=== PATIENT | male | born 1960 | race Caucasian/White ===

== ENCOUNTER 2022-05-30 11:38 | Outpatient (CLI) | payer OTHER, SELFPAY ==
[2022-05-30 10:47] LABS: Albumin* 3.2 g/dL (3.3-5.0)
[2022-05-30 10:48] LABS: Chloride* 103 mmol/L (96-114); Sodium* 135 mmol/L (135-149)
[2022-05-30 10:50] LABS: Alkaline Phosphatase* 81 U/L (40-150); Aspartate Amino Transferase* 25 U/L (12-35); Bilirubin Total* 1.2 mg/dL (0.1-1.5); Carbon Dioxide* 27 mmol/L (20-32); Cholesterol* 132 mg/dL (90-199); Creatinine* 0.9 mg/dL (0.5-1.5); Estimated Glomerular Filt Rate 97 ml/min; Total Protein* 6.1 g/dL (6.0-8.3)
[2022-05-30 10:51] LABS: Alanine Aminotransferase* 18 U/L (4-50); Blood Urea Nitrogen* 9 mg/dL (7-30); Calcium* 8.6 mg/dL (8.4-10.6); Glucose* 109 mg/dL (60-115); HDL Cholesterol* 45 mg/dL (>=40); LDL Cholesterol Calculated 70 mg/dL (<100); Triglycerides* 84 mg/dL (40-149)
[2022-05-30 11:20] LABS: PSA Screen* 0.97 ng/mL (0.10-4.00)
== END 2022-05-30 11:39 | disposition home or self-care (01) ==
PROVIDERS: PCP Internal Medicine; Visit Provider Internal Medicine
DX: Z00.00 Encounter for general adult medical examination without abnormal findings (principal); I10 Essential (primary) hypertension; E66.9 Obesity, unspecified; I48.91 Unspecified atrial fibrillation; Z12.5 Encounter for screening for malignant neoplasm of prostate; Z13.6 Encounter for screening for cardiovascular disorders
CPT/HCPCS: 80053; 80061; 84153

== ENCOUNTER 2022-07-10 16:24 | Outpatient (CLI) | payer OTHER, SELFPAY ==
[2022-07-10 18:08] LABS: Chloride* 94 mmol/L (96-114); Sodium* 132 mmol/L (135-149)
[2022-07-10 18:11] LABS: Carbon Dioxide* 28 mmol/L (20-32); Creatinine* 1.2 mg/dL (0.5-1.5); Estimated Glomerular Filt Rate 68 ml/min
[2022-07-10 18:12] LABS: Blood Urea Nitrogen* 25 mg/dL (7-30); Calcium* 9.2 mg/dL (8.4-10.6); Glucose* 104 mg/dL (60-115)
== END 2022-07-10 16:25 | disposition home or self-care (01) ==
LOC: NFLDREF 16:25
PROVIDERS: PCP Internal Medicine; Visit Provider Internal Medicine
DX: I48.91 Unspecified atrial fibrillation (principal)
CPT/HCPCS: 80048

== ENCOUNTER 2022-10-24 01:10 | Observation (INO) | payer OTHER, SELFPAY ==
[2022-10-24] VITALS (15 sets, daily range): BP systolic 134–181; BP diastolic 69–89; PULSE 48–56; RESP 18–42; TEMP 36.4–37.2; O2SAT 84–97; BMI 42.9; BMI 44.1
--- NOTE | 2022-10-24 01:30 | CRLHL7_ITS ---
For Patients: As a result of the Cures Act, medical imaging exams and procedure reports are released immediately into your electronic medical record. You may view this report before your referring provider. If you have questions, please contact your health care provider. INDICATION: Dyspnea, hypoxia. TECHNIQUE: Chest 1 views. COMPARISON: 04/17/2022. FINDINGS: Cardiovascular and mediastinum: Heart size and vasculature are normal in caliber and appearance for portable technique. Lungs and pleural spaces: Low lung volumes with bronchovascular crowding. No focal consolidation. No pleural effusion or pneumothorax. Bones and soft tissues: No significant findings. IMPRESSION: Low lung volumes with bronchovascular crowding. No focal consolidation. Dictated by Johan Foreman MD @ 10/24/2022 1:45:52 AM (Electronically Signed)
--- NOTE | 2022-10-24 01:33 | ED.SOB ---
HPI - SOB/Dyspnea General Chief Complaint: Shortness of Breath/Dyspnea Stated Complaint: ablation Time Seen by Provider: 10/24/22 01:23 History of Present Illness HPI Narrative: 62-year-old man presenting to the emergency department with increasing shortness of breath. Will twinge of chest discomfort as well. Discharged about 14 hours ago after cardiac ablation the day before. This was done for atrial fibrillation. no fevers. No describe any cough. Just can not lay back for the shortness of breath. I see him seated rather upright in a chair. Does have a history of hypertrophic obstructive cardiomyopathy and alcohol abuse, sleep apnea and does use CPAP. He says he has not had a drink since April. Is unaware of findings associated with any recent echocardiogram. I inquire because heart rate is in the mid 50s, he says that he would consider his baseline now around 62. As far as medications go, post-ablation he was initiated on amiodarone and diltiazem was decreased in half from 360mg long-acting to 180 mg extended release daily. Related Data Home Medications Medication Instructions Recorded Confirmed amiodarone 200 mg tablet 200 mg PO BID 10/24/22 10/24/22 atorvastatin 80 mg tablet 80 mg PO HS 10/24/22 10/24/22 diltiazem HCl 180 mg 180 mg PO DAILY 10/24/22 10/24/22 capsule,extended release 24 hr furosemide 20 mg tablet 20 mg PO DAILY aTRIAL fIBRILLATION 10/24/22 10/24/22 gabapentin 300 mg capsule 300 mg PO HS Neuropathy 10/24/22 10/24/22 metoprolol succinate 25 mg 25 mg PO DAILY Atrial Fibrillation 10/24/22 10/24/22 tablet,extended release 24 hr pantoprazole 40 mg granules 40 mg PO DAILY 10/24/22 10/24/22 delayed-release for susp in packet (Protonix) Previous Rx's Medication Instructions Recorded spironolactone 25 mg tablet 50 mg PO DAILY Hypertension #90 06/11/22 tabs hydrochlorothiazide 25 mg tablet 25 mg PO DAILY aTRIAL fIBRILLATION 09/09/22 #90 tabs apixaban 5 mg tablet 5 mg PO BID Atrial Fibrillation 09/19/22 #60 tabs compress.stocking,knee,reg,med #2 ea 09/19/22 Allergies Allergy/AdvReac Type Severity Reaction Status Date / Time No Known Allergies Allergy Verified 10/24/22 02:19 Review of Systems Status of ROS: Reports: 6 or more systems reviewed and unremarkable except as noted in History and below [facility] Medical History (Updated 10/25/22 @ 06:03 by Tony Leigh MD) Atrial fibrillation Bradycardia Hypertension Neuropathy Peripheral vascular disease Surgical History (Updated 10/24/22 @ 11:50 by Ezequiel Perez MD) History of appendectomy History of total right hip replacement S/P ablation of atrial fibrillation Social History (Updated 10/24/22 @ 11:47 by Ezequiel Perez MD) Narrative: Patient is a former smoker having quit about 17 years ago with a 33 pack-year history. History of alcohol use disorder and reports not drinking since April of this year. Highest level of school completed/degree received: high school graduate Smoking Status: Former smoker Do you use any of these nicotine containing products: None Second hand tobacco smoke exposure: No How often do you have a drink containing alcohol: never AUDIT-C Alcohol total score: 0 Non-prescribed substance use: denies use Caffeine: Yes service: No Exam Narrative: Exam Narrative: Mr. Sims is seated upright in his chair. Seems mildly stressed. is speaking in partial sentences. He is on a non-rebreather. Arrived oxygenating in the mid 80s. He is mildly tachypneic and moderately labored in his breathing. Cranial nerves 2-12 look to be intact. Lungs with diminished to even absent breath sounds particularly through both lower lung squires. Extremities are with 1.5+ pitting edema in the lower legs. Abdomen is obese tense nontender. Cardiovascular with regular rate and rhythm. Rather distant. Oropharynx with rather shorter thick neck. Couple spots of erythema in the posterior oropharynx. Const: Vital Signs, click to edit/add: Vital Signs - 24 hr 10/24/22 01:24 10/24/22 01:30 10/24/22 01:30 Temperature 99 F Pulse Rate [Pulse Oximeter] 56 L Respiratory Rate 26 H Blood Pressure [Le ft Upper Arm] 181/75 H Pulse Oximetry 84 L 84 L 94 Oxygen Delivery Me thod Room Air OxyMask Oxygen Flow Rate 4 10/24/22 02:00 10/24/22 02:05 10/24/22 03:05 Temperature Pulse Rate [Pulse Oximeter] 52 L 50 L 49 L Respiratory Rate 42 H 17 84 H Blood Pressure [Le ft Upper Arm] 153/74 H 134/89 176/81 H Pulse Oximetry 91 93 96 Oxygen Delivery Me thod Nasal Cannula Nasal Cannula Nasal Cannula Oxygen Flow Rate Documenting provider has reviewed patient's vital signs: yes Course Vital Signs Vital signs: Initial Vital Signs Temperature 99 F 10/24/22 01:24 Temperature Source Temporal Artery Scan 10/24/22 01:24 Pulse Rate 56 L 10/24/22 01:24 Respiratory Rate 26 H 10/24/22 01:24 Blood Pressure 181/75 H 10/24/22 01:24 Blood Pressure Mean 110 10/24/22 01:24 Pulse Oximetry 84 L 10/24/22 01:24 Oxygen Delivery Method 10/24/22 01:24 Vital Signs Temperature 99 F 10/24/22 01:24 Pulse Rate 56 L 10/24/22 01:24 Respiratory Rate 26 H 10/24/22 01:24 Blood Pressure 181/75 H 10/24/22 01:24 Pulse Oximetry 84 L 10/24/22 01:24 Oxygen Delivery Method 10/24/22 01:24 Temperature 97.7 F 10/24/22 17:02 Pulse Rate 60 10/25/22 03:51 Respiratory Rate 20 10/24/22 23:00 Blood Pressure 152/73 H 10/24/22 17:02 Pulse Oximetry 97 10/25/22 01:30 Oxygen Delivery Method 10/24/22 23:00 Oxygen Flow Rate 2 10/24/22 23:00 MDM - SOB/Dyspnea MDM Narrative Medical decision making narrative: Supporting with oxygen supplementation at this point. Labs are pending. I would expect troponins to be elevated. Normal would be otherwise reassuring of course. Most concerning findings so far are the dyspnea and absent breath sounds. Pulmonary edema/ Effusion? Ordered for 1 dose of sublingual nitroglycerin and 40 mg of Lasix. Elevated BNP though only around 730. Would seem to have evidence of edema or cephalization on his chest x-ray by my read though Radiology suspects most finding secondary to inadequate inspiratory effort and subsequent crowding. Does look to have enlarged by my read cardiac silhouette. Little concerned of giving more nitroglycerin in the setting of hypertrophic obstructive cardiomyopathy. Oxygenation overall improved 91% on room air now as transition to nasal cannula. 97% on 2 L. Generally notes himself to be intolerant of mask and sounds like if necessary BiPAP would be a challenge. Did speak with Cardiology on-call through [employer]. They would concur that diagnosis a little unclear here. Admission, monitoring and repeat echo would be a good idea. Admitting to [facility] Medical Records Attestation: I reviewed the patient's medical records. Lab Data Attestation: I reviewed the patient's lab results. Labs: Lab Results 10/24/22 10/24/22 10/24/22 Range/Units 01:30 01:30 01:30 WBC 12.97 H (4.50-11.00) K/uL RBC 4.75 (4.30-5.90) m/uL Hgb 14.3 (13.5-17.5) gm/dL Hct 44.2 (37.0-53.0) % MCV 93 (80-100) fL MCH 30 (26-34) pg MCHC 32 (32-36) gm/dL RDW Coeff of Myles 15.6 H (11.5-15.5) % Plt Count 208 (140-440) K/uL Neut % (Auto) 74.4 H (42.0-72.0) % Lymph % (Auto) 17.3 L (20-44) % Reeves % (Auto) 7.9 (0.0-11.0) % Eos % (Auto) 0.2 (0.0-7.0) % Baso % (Auto) 0.1 (0.0-3.0) % Neut # (Auto) 9.60 H (1.7-7.0) K/uL Lymph # (Auto) 2.20 (0.90-2.90) K/uL Reeves # (Auto) 1.00 H (0.00-0.90) K/UL Eos # (Auto) 0.00 (0.00-0.50) K/uL Baso # (Auto) 0.00 (0.00-0.30) K/uL D-Dimer Quant (PE/DVT) 0.49 (0.00-0.50) ug/ml VBG pH (7.32-7.43) VBG pCO2 (40-50) mmHG VBG pO2 (25-47) mmHG VBG HCO3 (21-28) mmol/L Sodium 134 L (135-149) mmol/L Potassium 4.6 (3.6-5.1) mmol/L Chloride 102 (96-114) mmol/L Carbon Dioxide 23 (20-32) mmol/L BUN 24 (7-30) mg/dL Creatinine 1.1 (0.5-1.5) mg/dL Estimated GFR 75 ml/min Glucose 155 H (60-115) mg/dL Calcium 8.6 (8.4-10.6) mg/dL Magnesium (1.5-2.6) mg/dL Troponin I (0.01-0.04) ng/mL C-Reactive Protein < 0.5 L (0.5-1.0) mg/dL NT-Pro-B Natriuret Pep pg/mL SARS-CoV-2 (PCR) (Negative) Influenza Type A (PCR) (Negative) Influenza Type B (PCR) (Negative) RSV (PCR) (Negative) POC Troponin I (0.01-0.04) ng/ml 10/24/22 10/24/22 10/24/22 Range/Units 01:30 01:30 01:32 WBC (4.50-11.00) K/uL RBC (4.30-5.90) m/uL Hgb (13.5-17.5) gm/dL Hct (37.0-53.0) % MCV (80-100) fL MCH (26-34) pg MCHC (32-36) gm/dL RDW Coeff of Myles (11.5-15.5) % Plt Count (140-440) K/uL Neut % (Auto) (42.0-72.0) % Lymph % (Auto) (20-44) % Reeves % (Auto) (0.0-11.0) % Eos % (Auto) (0.0-7.0) % Baso % (Auto) (0.0-3.0) % Neut # (Auto) (1.7-7.0) K/uL Lymph # (Auto) (0.90-2.90) K/uL Reeves # (Auto) (0.00-0.90) K/UL Eos # (Auto) (0.00-0.50) K/uL Baso # (Auto) (0.00-0.30) K/uL D-Dimer Quant (PE/DVT) (0.00-0.50) ug/ml VBG pH 7.391 (7.32-7.43) VBG pCO2 43 (40-50) mmHG VBG pO2 151.0 H (25-47) mmHG VBG HCO3 26 (21-28) mmol/L Sodium (135-149) mmol/L Potassium (3.6-5.1) mmol/L Chloride (96-114) mmol/L Carbon Dioxide (20-32) mmol/L BUN (7-30) mg/dL Creatinine (0.5-1.5) mg/dL Estimated GFR ml/min Glucose (60-115) mg/dL Calcium (8.4-10.6) mg/dL Magnesium 2.1 (1.5-2.6) mg/dL Troponin I 2.16 H* (0.01-0.04) ng/mL C-Reactive Protein (0.5-1.0) mg/dL NT-Pro-B Natriuret Pep 736 pg/mL SARS-CoV-2 (PCR) (Negative) Influenza Type A (PCR) (Negative) Influenza Type B (PCR) (Negative) RSV (PCR) (Negative) POC Troponin I 1.57 H (0.01-0.04) ng/ml 10/24/22 Range/Units 01:50 WBC (4.50-11.00) K/uL RBC (4.30-5.90) m/uL Hgb (13.5-17.5) gm/dL Hct (37.0-53.0) % MCV (80-100) fL MCH (26-34) pg MCHC (32-36) gm/dL RDW Coeff of Myles (11.5-15.5) % Plt Count (140-440) K/uL Neut % (Auto) (42.0-72.0) % Lymph % (Auto) (20-44) % Reeves % (Auto) (0.0-11.0) % Eos % (Auto) (0.0-7.0) % Baso % (Auto) (0.0-3.0) % Neut # (Auto) (1.7-7.0) K/uL Lymph # (Auto) (0.90-2.90) K/uL Reeves # (Auto) (0.00-0.90) K/UL Eos # (Auto) (0.00-0.50) K/uL Baso # (Auto) (0.00-0.30) K/uL D-Dimer Quant (PE/DVT) (0.00-0.50) ug/ml VBG pH (7.32-7.43) VBG pCO2 (40-50) mmHG VBG pO2 (25-47) mmHG VBG HCO3 (21-28) mmol/L Sodium (135-149) mmol/L Potassium (3.6-5.1) mmol/L Chloride (96-114) mmol/L Carbon Dioxide (20-32) mmol/L BUN (7-30) mg/dL Creatinine (0.5-1.5) mg/dL Estimated GFR ml/min Glucose (60-115) mg/dL Calcium (8.4-10.6) mg/dL Magnesium (1.5-2.6) mg/dL Troponin I (0.01-0.04) ng/mL C-Reactive Protein (0.5-1.0) mg/dL NT-Pro-B Natriuret Pep pg/mL SARS-CoV-2 (PCR) Negative SARS-CoV-2 (Negative) Influenza Type A (PCR) Negative PCR FLU A (Negative) Influenza Type B (PCR) Negative PCR FLU B (Negative) RSV (PCR) Negative PCR RSV (Negative) POC Troponin I (0.01-0.04) ng/ml ECG Data Attestation: I personally reviewed and interpreted this ECG as follows: ( looks to be in a sinus rhythm by my read. Bradycardia with a rate of 53) Critical Care Time Critical Care Time Total Critical Care Time in Minutes: 70 Discharge Plan Discharge Clinical Impression: H/O cardiac radiofrequency ablation, Respiratory failure, Heart failure Patient Disposition: Admitted As Inpatient Condition: Improved
[2022-10-24 01:44] LABS: Basophils Percent Auto 0.1 % (0.0-3.0); Eosinophils Percent Auto 0.2 % (0.0-7.0); Hematocrit 44.2 % (37.0-53.0); Hemoglobin* 14.3 gm/dL (13.5-17.5); Immature Granulocytes Pct Auto 0.1 %; Lymphocytes Percent Auto 17.3 % (20-44); Mean Corpuscular HGB Conc 32 gm/dL (32-36); Mean Corpuscular Hemoglobin 30 pg (26-34); Mean Corpuscular Volume 93 fL (80-100); Monocytes Percent Auto 7.9 % (0.0-11.0); Neutrophils Percent Auto 74.4 % (42.0-72.0); Platelet Count* 208 K/uL (140-440); RDW Coefficient of Variation % 15.6 % (11.5-15.5); Red Blood Count 4.75 m/uL (4.30-5.90); White Blood Count* 12.97 K/uL (4.50-11.00)
[2022-10-24 01:51] LABS: Slide Review Reflex No
[2022-10-24 01:58] LABS: Chloride* 102 mmol/L (96-114); Potassium* 4.6 mmol/L (3.6-5.1); Sodium* 134 mmol/L (135-149)
[2022-10-24 02:01] LABS: Creatinine* 1.1 mg/dL (0.5-1.5); Estimated Glomerular Filt Rate 75 ml/min; Magnesium* 2.1 mg/dL (1.5-2.6)
[2022-10-24 02:02] LABS: Blood Urea Nitrogen* 24 mg/dL (7-30); Calcium* 8.6 mg/dL (8.4-10.6); Carbon Dioxide* 23 mmol/L (20-32); Glucose* 155 mg/dL (60-115)
[2022-10-24 02:03] LABS: PCO2 VBG 43 mmHG (40-50); pH VBG 7.391 (7.32-7.43)
[2022-10-24 02:04] LABS: HCO3 VBG 26 mmol/L (21-28)
[2022-10-24 02:05] LABS: C Reactive Protein* < 0.5 mg/dL (0.5-1.0); D Dimer Quantitative* 0.49 ug/ml (0.00-0.50)
[2022-10-24] MEDS: NITROGLYCERIN 0.4 MG TAB.SUBL SUBLINGUAL (02:06)
[2022-10-24 02:15] LABS: Troponin I* 2.16 ng/mL (0.01-0.04)
[2022-10-24] MEDS: FUROSEMIDE 10 MG/ML inj 40 MG IVP ×3 (02:16→16:49)
[2022-10-24 02:24] LABS: NT Pro B Type NatriureticPept* 736 pg/mL
[2022-10-24 02:38] LABS: PCR FLU A Negative PCR FLU A (Negative); PCR FLU B Negative PCR FLU B (Negative); PCR RSV Negative PCR RSV (Negative); SARS PCR* Negative SARS-CoV-2 (Negative)
[2022-10-24 04:51] LABS: Troponin, Point-of-Care* 1.26 ng/ml (0.01-0.04)
[2022-10-24 04:52] LABS: Troponin, Point-of-Care* 1.57 ng/ml (0.01-0.04)
--- NOTE | 2022-10-24 05:26 | ED.NURSE ---
Report to SATHYA Yeh. Patient transported to [facility] via w/c tele with all belongings.
--- NOTE | 2022-10-24 05:58 | PM.IMCN1 ---
Date of Consult Consult date: 10/24/22 Primary Care Provider: Patel Lugo MD Consult Narrative Narrative: Ezequiel Buckner is a 62 year old male [facility] Medical History (Updated 10/24/22 @ 04:41 by Tony Leigh MD) Atrial fibrillation Hypertension Neuropathy Peripheral vascular disease Surgical History (Updated 10/24/22 @ 04:41 by Tony Leigh MD) History of appendectomy History of total right hip replacement S/P ablation of atrial fibrillation Social History Smoking Status: Former smoker Second hand tobacco smoke exposure: No How often do you have a drink containing alcohol: never AUDIT-C Alcohol total score: 0 Non-prescribed substance use: denies use service: No Meds Home Medications and Allergies Home Medications Medication Instructions Recorded Confirmed Type amiodarone 200 mg tablet 200 mg PO Q12H 10/24/22 10/24/22 History atorvastatin 10 mg tablet 80 mg PO .Bedtime Hyperlipidemia 10/24/22 10/24/22 History diltiazem HCl 180 mg 180 mg PO Q24H 10/24/22 10/24/22 History capsule,extended release 24 hr Allergies Allergy/AdvReac Type Severity Reaction Status Date / Time No Known Allergies Allergy Verified 10/24/22 02:19 Exam Const: Vital Signs, click to edit/add: Vital Signs - 24 hr 10/24/22 01:24 10/24/22 01:30 10/24/22 01:30 Temperature 99 F Pulse Rate [Pulse Oximeter] 56 L Respiratory Rate 26 H Blood Pressure [Le ft Upper Arm] 181/75 H Pulse Oximetry 84 L 84 L 94 Oxygen Delivery Me thod Room Air OxyMask Oxygen Flow Rate 4 10/24/22 02:00 10/24/22 02:05 10/24/22 03:05 Temperature Pulse Rate [Pulse Oximeter] 52 L 50 L 49 L Respiratory Rate 42 H 26 H 24 Blood Pressure [Le ft Upper Arm] 153/74 H 134/89 176/81 H Pulse Oximetry 91 93 96 Oxygen Delivery Me thod Nasal Cannula Nasal Cannula Nasal Cannula Oxygen Flow Rate 10/24/22 05:28 Temperature Pulse Rate [Pulse Oximeter] 48 L Respiratory Rate Blood Pressure [Le ft Upper Arm] Pulse Oximetry Oxygen Delivery Me thod Oxygen Flow Rate Labs Labs: Short CBC 10/24/22 Range/Units 01:30 WBC 12.97 H (4.50-11.00) K/uL Hgb 14.3 (13.5-17.5) gm/dL Hct 44.2 (37.0-53.0) % Plt Count 208 (140-440) K/uL BMP 10/24/22 01:30 Sodium 134 L Potassium 4.6 Chloride 102 Carbon Dioxide 23 BUN 24 Creatinine 1.1 Glucose 155 H Calcium 8.6 Cardiac Enzymes 10/24/22 Range/Units 01:30 Troponin I 2.16 H* (0.01-0.04) ng/mL Assessment and Plan Assessment and plan (1) H/O cardiac radiofrequency ablation: Status: Acute (2) Peripheral vascular disease: Status: Acute (3) Respiratory failure: Status: Acute (4) Hypertension: Status: Acute (5) Atrial fibrillation: Status: Acute (6) Alcohol withdrawal: Status: Acute (7) Obstructive sleep apnea: Status: Acute Plan [facility] Hospitalist eHospitalist was contacted with request of consultation for admit for shortness of breath. Patient is a 62-year-old male with a past medical history of A. fib, hypertension, neuropathy, MEGGAN on CPAP, peripheral vascular disease, hyperlipidemia who presented secondary to shortness of breath. Patient had a ablation on 10/22/2022. He states he felt fine afterwards. He was started on amiodarone afterwards and his diltiazem dose was cut in half. He states he has been taking all of his medication as prescribed. He has not increased his salt or liquid intake. He states that on Friday around 8 PM he had sudden onset shortness of breath. He states that he also had some chest pain which felt like chest pressure on the left side. He rated it a 6 out of 10 and denied any radiation. He denied any other symptoms. He states that the chest pain improved once he got into the ED. In the ED patient was started on oxygen. He received nitroglycerin sublingual one-time dose and Lasix 40 mg IV push. Patient was noted to be hypertensive. He had an elevated troponin. EKG showed some artifact, but no ST elevation or depression. Chest x-ray was read as normal by radiology, but ED physician felt that it showed some congestion and cardiomegaly. Patient was started on oxygen at 2 L nasal cannula. He is not on any oxygen at home. Patient had an elevated white cell count of 12.97 and some hyponatremia at 134. Negative for COVID, flu and RSV. Patient states that he has been unable to lie flat since his symptoms began. He is in fact unable to recline as he begins to get short of breath and cough. He states he has been coughing up clear phlegm. ED physician did discuss with cardiology. At this time the recommendation was for an echo and monitoring. Home Medications: see EMR Pertinent Social History: Former smoker Exam (performed via interactive video with assistance of bedside nurse): General: alert, cooperative, no acute distress HEENT: oral mucosa pink and moist without erythema Lungs: Poor air movement bilaterally without crackle or wheeze CV: Bradycardia, regular rhythm without loud murmur rub or gallop Abd: denies tenderness and does not exhibit signs of pain with palpation done by bedside nurse Ext: +2 pitting edema bilaterally Skin: no rashes, bruises or lesions appreciated on gross visualization of exposed skin Neuro: alert, oriented, facial muscles grossly intact Assessment and Plan: Patient is a 62-year-old male with a past medical history of A. fib, hypertension, neuropathy, MEGGAN on CPAP, peripheral vascular disease, hyperlipidemia who presented secondary to shortness of breath and chest pain Shortness of breath: Continues Chest pain: Resolved Bradycardia: Pulse ox, oxygen as needed, maintain sats at 92% or higher Echo pending Repeat troponin Telemetry Lasix 40 mg IV push given in the ED --- continue on 40 IV daily, consider Lasix drip Daily weights Fluid restriction 1500 cc Consider official cardiology consult We will hold off on amiodarone and beta-blockers for now due to bradycardia --- if this is not improve/patient becomes hypotensive consider transferring patient as that would be concerning for cardiogenic shock HTN: Hydralazine IVP one time as am concerned about bradycardia EtoH abuse hx: CIWA protocol Restart home medication as appropriate once reconciled DVT prophylaxis: Home Eliquis Diet: Fluid restriction 1500 cc Dispo: Pending Full code Thank you for including [facility] Hospitalist in the patients care. This service is available for further assistance as requested by your care team by calling [phone].
--- NOTE | 2022-10-24 07:40 | PC.NURSE ---
Patient admitted to unit around 0500 am. He is alert and oriented x 4, able to call for help. Patient denies pain on assessment. Patient is on 2L of O2 for SOB.
[2022-10-24] MEDS: APIXABAN 5 MG TABLET PO ×2 (09:23→20:20)
[2022-10-24] MEDS: OMEPRAZOLE 20 MG CAPSULE DR 40 MG PO (09:23)
[2022-10-24] MEDS: SODIUM CHLORIDE 0.9 % (FLUSH) 10 ML SYRINGE 5 ML IVF ×3 (09:23→20:18)
[2022-10-24] MEDS: AMIODARONE 200 MG TABLET PO ×2 (09:23→20:20)
[2022-10-24 09:31] LABS: Basophils Absolute Auto 0.02 K/uL (0.00-0.30); Basophils Percent Auto 0.2 % (0.0-3.0); Eosinophils Absolute Auto 0.03 K/uL (0.00-0.50); Eosinophils Percent Auto 0.3 % (0.0-7.0); Hematocrit 42.1 % (37.0-53.0); Hemoglobin* 13.7 gm/dL (13.5-17.5); Immature Granulocytes Abs Auto 0.02 K/uL (0.00-0.30); Immature Granulocytes Pct Auto 0.2 %; Mean Corpuscular HGB Conc 33 gm/dL (32-36); Mean Corpuscular Hemoglobin 30 pg (26-34); Mean Corpuscular Volume 93 fL (80-100); Monocytes Percent Auto 10.7 % (0.0-11.0); Neutrophils Percent Auto 72.6 % (42.0-72.0); Platelet Count* 156 K/uL (140-440); RDW Coefficient of Variation % 15.6 % (11.5-15.5); Red Blood Count 4.55 m/uL (4.30-5.90); White Blood Count* 9.34 K/uL (4.50-11.00)
[2022-10-24 09:41] LABS: Slide Review Reflex No
[2022-10-24 09:51] LABS: Chloride* 99 mmol/L (96-114)
[2022-10-24 09:52] LABS: Potassium* 3.6 mmol/L (3.6-5.1); Sodium* 137 mmol/L (135-149)
[2022-10-24 09:54] LABS: Carbon Dioxide* 30 mmol/L (20-32); Est. Creatinine Clearance* 63.31; Estimated Glomerular Filt Rate 85 ml/min
[2022-10-24 09:55] LABS: Blood Urea Nitrogen* 24 mg/dL (7-30); Calcium* 8.7 mg/dL (8.4-10.6); Glucose* 115 mg/dL (60-115)
[2022-10-24 10:09] LABS: Troponin I* 1.75 ng/mL (0.01-0.04)
[2022-10-24] MEDS: POTASSIUM BICARB 25 MEQ EFFERVESCENT TAB 50 MEQ PO (10:54)
--- NOTE | 2022-10-24 11:40 | PM.IMHP1 ---
Hospitalist- H&P: [facility] History of Present Illness Date Seen: 10/24/22 Chief complaint: Ablation/hard time breathing. Narrative: Ezequiel Buckner is a 62 year old male admitted to the hospital with dyspnea 1.5 days after cardiac ablation for atrial fibrillation. Patient underwent cardiac ablation at [facility] with Dr. Brown on October 22. The procedure was uncomplicated. He was discharged to home the next day. The evening of discharge she noted exertional dyspnea. He noted that he can walk about 30 yd before he would have to stop to catch his breath. He could not lay down last night to sleep because he would get very short of breath. Because this he came to the emergency department. There he was diagnosed with heart failure and treated with furosemide. He was admitted to the hospital this morning for ongoing evaluation management. He does not have a history of heart failure. He has had atrial fibrillation going back to April of this year when he had atrial fibrillation with RVR associated with alcohol abuse and alcohol withdrawal. At that time his echo showed an ejection fraction of 55-60% without marked valvular disease. He had unsuccessful cardioversions this fall even after loading with amiodarone. Because that he was scheduled for an ablation which was performed 2 days ago. He has not been ill with fever, cough, respiratory illness, chest pain, syncope. He did have cold symptoms 3 weeks ago but these had resolved. Review of Systems Narrative: Patient reports that he has generally been doing well except for his tachy palpitations that he has been experiencing over the last few months. Sounds like he may be in an out of atrial fibrillation with RVR at home. He has been taking his medicines as prescribed. There are changes to his medications done after his ablation. New medication was amiodarone 200 mg twice daily for 2 weeks followed by 1 tablet daily and pantoprazole 40 mg daily. His diltiazem was reduced from 360 mg daily to 180 mg daily. [facility] Medical History (Updated 10/24/22 @ 11:54 by Ezequiel Perez MD) Atrial fibrillation Bradycardia Hypertension Neuropathy Peripheral vascular disease Surgical History (Updated 10/24/22 @ 11:50 by Ezequiel Perez MD) History of appendectomy History of total right hip replacement S/P ablation of atrial fibrillation Social History (Updated 10/24/22 @ 11:47 by Ezequiel Perez MD) Narrative: Patient is a former smoker having quit about 17 years ago with a 33 pack-year history. History of alcohol use disorder and reports not drinking since April of this year. Highest level of school completed/degree received: high school graduate Smoking Status: Former smoker Do you use any of these nicotine containing products: None Second hand tobacco smoke exposure: No How often do you have a drink containing alcohol: never AUDIT-C Alcohol total score: 0 Non-prescribed substance use: denies use Caffeine: Yes service: No Meds Home Medications and Allergies Home Medications Medication Instructions Recorded Confirmed Type amiodarone 200 mg tablet 200 mg PO BID 10/24/22 10/24/22 History atorvastatin 80 mg tablet 80 mg PO HS 10/24/22 10/24/22 History diltiazem HCl 180 mg 180 mg PO DAILY 10/24/22 10/24/22 History capsule,extended release 24 hr furosemide 20 mg tablet 20 mg PO DAILY aTRIAL fIBRILLATION 10/24/22 10/24/22 History gabapentin 300 mg capsule 300 mg PO HS Neuropathy 10/24/22 10/24/22 History metoprolol succinate 25 mg 25 mg PO DAILY Atrial Fibrillation 10/24/22 10/24/22 History tablet,extended release 24 hr pantoprazole 40 mg granules 40 mg PO DAILY 10/24/22 10/24/22 History delayed-release for susp in packet (Protonix) Allergies Allergy/AdvReac Type Severity Reaction Status Date / Time No Known Allergies Allergy Verified 10/24/22 02:19 Exam Narrative: Exam Narrative: He is alert and appears in no distress. He gives his own history. His breathing is unlabored. He is now off oxygen. Eyes normal. Oropharynx with small airway. No facial asymmetry. Neck is supple without mass or adenopathy. Respirations are clear to auscultation. No wheezing rales or rhonchi. Cardiovascular: S1, S2, regular rate and rhythm. No gallop or rub. Abdomen: Bowel sounds active. Abdomen is protuberant. There is no tenderness or mass. Extremities with 2+ edema bilaterally in his ankles. He moves all 4 extremities well. He has intact pedal pulses. No rash Const: Vital Signs, click to edit/add: Vital Signs - 24 hr 10/24/22 01:24 10/24/22 01:30 10/24/22 01:30 Temperature 99 F Pulse Rate Pulse Rate [Pulse Oximeter] 56 L Respiratory Rate 26 H Blood Pressure [Le ft Arm] Blood Pressure [Le ft Upper Arm] 181/75 H Pulse Oximetry 84 L 84 L 94 Oxygen Delivery Me thod Room Air OxyMask Oxygen Flow Rate 4 10/24/22 02:00 10/24/22 02:05 10/24/22 03:05 Temperature Pulse Rate Pulse Rate [Pulse Oximeter] 52 L 50 L 49 L Respiratory Rate 42 H 26 H 24 Blood Pressure [Le ft Arm] Blood Pressure [Le ft Upper Arm] 153/74 H 134/89 176/81 H Pulse Oximetry 91 93 96 Oxygen Delivery Me thod Nasal Cannula Nasal Cannula Nasal Cannula Oxygen Flow Rate 10/24/22 05:28 10/24/22 05:29 10/24/22 05:29 Temperature Pulse Rate Pulse Rate [Pulse Oximeter] 48 L Respiratory Rate 18 Blood Pressure [Le ft Arm] Blood Pressure [Le ft Upper Arm] Pulse Oximetry Oxygen Delivery Me thod Nasal Cannula Nasal Cannula CPAP Oxygen Flow Rate 2 10/24/22 06:13 10/24/22 08:24 10/24/22 07:28 Temperature 97.8 F Pulse Rate 49 L Pulse Rate [Pulse Oximeter] 50 L Respiratory Rate 18 Blood Pressure [Le ft Arm] 159/79 H Blood Pressure [Le ft Upper Arm] Pulse Oximetry 96 96 Oxygen Delivery Me thod Nasal Cannula Oxygen Flow Rate 2 Documenting provider has reviewed patient's vital signs: yes Hospitalist - H&P: Result Labs Labs: Short CBC 10/24/22 10/24/22 Range/Units 01:30 09:20 WBC 12.97 H 9.34 (4.50-11.00) K/uL Hgb 14.3 13.7 (13.5-17.5) gm/dL Hct 44.2 42.1 (37.0-53.0) % Plt Count 208 156 (140-440) K/uL BMP 10/24/22 10/24/22 01:30 09:20 Sodium 134 L 137 Potassium 4.6 3.6 Chloride 102 99 Carbon Dioxide 23 30 BUN 24 24 Creatinine 1.1 1.0 Glucose 155 H 115 Calcium 8.6 8.7 Cardiac Enzymes 10/24/22 10/24/22 Range/Units 01:30 09:20 Troponin I 2.16 H* 1.75 H* (0.01-0.04) ng/mL ECG Attestation: I personally reviewed and interpreted this ECG as follows: (Sinus bradycardia with a rate of 53. Nonspecific ST changes primarily in inferior leads and V6 ) Assessment and Plan Assessment and plan (1) H/O cardiac radiofrequency ablation: Problem comment: Day 2 status post radiofrequency ablation of atrial fibrillation. Status: Acute (2) Respiratory failure: Problem comment: Dyspnea and hypoxia due to presumed heart failure. Clinically improved with diuresis overnight. Continue diuresis. Obtain echocardiogram. He is currently on 3 diuretics, furosemide 20 mg daily, hydrochlorothiazide 25 mg daily and spironolactone 50 mg daily. I am going to stop hydrochlorothiazide and increase the furosemide initially to 40 mg b.i.d. orally starting tomorrow. Probably will need additional potassium as well. Status: Acute (3) Obstructive sleep apnea: Problem comment: On CPAP at home Status: Acute (4) Obesity: Status: Acute (5) Bradycardia: Problem comment: Likely due to ablation plus diltiazem plus metoprolol plus amiodarone. Hold diltiazem and metoprolol. Resume metoprolol as heart rate allows Status: Acute (6) Hypertension: Problem comment: Blood pressure has been normal. Likely will need additional blood pressure medicine with discontinuing diltiazem due to bradycardia. Await echo results to determine appropriate antihypertensive medicine for him. Status: Acute Plan Continue in hospital pending his response to ongoing diuresis, monitoring of blood pressure pulse and electrolytes, echocardiogram. Total time spent today is 80 minutes, 50 minutes in coordination of care and discussing with patient and other providers management of heart failure, bradycardia status post ablation.
[2022-10-24] MEDS: POTASSIUM CHLORIDE 10 MEQ CAPSULE ER 20 MEQ PO (18:22)
[2022-10-24] MEDS: GABAPENTIN 300 MG CAPSULE PO (20:19)
[2022-10-24] MEDS: ATORVASTATIN CALCIUM 40 MG TABLET 80 MG PO (20:20)
[2022-10-25 01:30] VITALS: O2SAT 97
[2022-10-25 03:51] VITALS: PULSE 60
--- NOTE | 2022-10-25 05:47 | PC.NURSE ---
Patient is alert and oriented x 4, uses call light appropriately to make needs known to staff. Patient denies pain on assessment. Patient is independent in room, continent of bowel and bladder. VSS.
[2022-10-25 06:13] VITALS: BP 152/73; PULSE 56; RESP 20; TEMP 36.5; O2SAT 97
[2022-10-25 07:00] VITALS: PULSE 56; RESP 18; RESP 20; O2SAT 91
[2022-10-25] MEDS: SODIUM CHLORIDE 0.9 % (FLUSH) 10 ML SYRINGE 5 ML IVF (09:00)
[2022-10-25 09:08] LABS: Chloride* 100 mmol/L (96-114); Potassium* 3.7 mmol/L (3.6-5.1); Sodium* 137 mmol/L (135-149)
[2022-10-25] MEDS: POTASSIUM CHLORIDE 10 MEQ CAPSULE ER 20 MEQ PO (09:10)
[2022-10-25] MEDS: FUROSEMIDE 40 MG TABLET PO (09:10)
[2022-10-25 09:11] LABS: Blood Urea Nitrogen* 22 mg/dL (7-30); Carbon Dioxide* 32 mmol/L (20-32); Creatinine* 0.9 mg/dL (0.5-1.5); Est. Creatinine Clearance* 63.31; Estimated Glomerular Filt Rate 96 ml/min; Glucose* 97 mg/dL (60-115)
[2022-10-25] MEDS: APIXABAN 5 MG TABLET PO (09:11)
[2022-10-25] MEDS: SPIRONOLACTONE 25 MG TABLET 50 MG PO (09:11)
[2022-10-25] MEDS: OMEPRAZOLE 20 MG CAPSULE DR 40 MG PO (09:11)
[2022-10-25] MEDS: AMIODARONE 200 MG TABLET PO (09:12)
--- NOTE | 2022-10-25 10:25 | P.DS_ITS ---
DS: Providers Provider Time Seen by Provider: 10:00 Date Seen: 10/25/22 Date of admission: 10/24/22 04:39 Primary care physician: Patel Lugo MD Admitting Clinician: Ayaka Smyth MD Attending Physician on discharge: Kathie Diaz MD Date of Discharge: 10/25/22 DS: Diagnosis Discharge Diagnosis (1) Respiratory failure: Status: Acute Problem details: Dyspnea and hypoxia due to presumed heart failure with preserved EF. (2) Heart failure with preserved ejection fraction: Status: Suspected Problem details: EF 65-70% on 10/23/22. Clinically improved with diuresis. HCTZ stopped. Continue furosemide at 40 mg/day and spironolactone. K check early next week. Daily weights, low salt diet. (3) Echocardiogram abnormal: Status: Acute Problem details: 10/23/22 Normal LV size, mildly increased wall thickness, estimated EF of 65- 70%. Normal RV size and systolic function. Left atrial enlargement. Mitral valve is sclerotic, mild to moderate mitral regurgitation. (4) Bradycardia: Status: Acute Problem details: Likely due to ablation plus diltiazem plus metoprolol plus amiodarone. Diltiazem and metoprolol on hold. May be able to resume metoprolol as outpatient if heart rate allows. (5) H/O cardiac radiofrequency ablation: Status: Acute Problem details: Day 3 status post radiofrequency ablation of atrial fibrillation. (6) Hypertension: Status: Acute Problem details: Blood pressure more elevated today, not unexpected with medication changes. I have asked patient to follow up with PCP early next week to f/u on BP and potassium. (7) Hypertrophic obstructive cardiomyopathy: Status: Chronic (8) Obstructive sleep apnea: Status: Chronic Problem details: On CPAP at home (9) Obesity: Status: Chronic DS: Summary Hospital Course Hospital Course: Is a 62-year-old male who underwent a cardiac ablation for atrial fibrillation on 10/22/2022. The procedure was uncomplicated and he was discharged home the next day. That evening he developed exertional dyspnea and was having trouble with worsening dyspnea when trying to lay down to go to sleep. He came to the emergency department and was admitted for treatment of heart failure. He was started on diuresis. Echocardiogram shows an ejection fraction of 65-70 %, which is improved from an echo done over the summer which showed an ejection fraction of 55-60%. He had some cold symptoms about 3 weeks ago that had resolved, has otherwise not been ill. He did very well with diuresis and feels back to his usual self today. His lung exam is clear. His metoprolol and diltiazem were stopped due to bradycardia. He remains bradycardic in regular rhythm today and so I have continued to hold his metoprolol and diltiazem. His systolic blood pressure is elevated, which is not surprising since diltiazem, metoprolol, and hydrochlorothiazide remain on hold. He is still on spironolactone and I have increased his furosemide for discharge. He will be checking his weights daily. He is also on a small daily dose of potassium which will need to be monitored since he is also on spironolactone. Ambulatory O2 study done today was borderline, but he does not qualify at this time for home O2. I have asked him to follow-up early next week for potassium check and to follow- up with blood pressure, ambulatory O2 studay, and heart failure symptoms and weights. He may need another antihypertensive added to his regimen if he remains hypertensive. Time Spent with Patient Time attestation: Total time spent providing and/or coordinating discharge services: Exam Narrative: Exam Narrative: General: No acute distress. Awake, alert, oriented x3. No pallor. No jaundice. Cardiovascular: Regular rate and rhythm. No murmurs, gallops, or rubs. Respiratory: Clear to auscultation bilaterally. No wheezes or crackles. Const: Vital Signs, click to edit/add: Vital Signs - 24 hr 10/24/22 13:54 10/24/22 16:47 10/24/22 16:47 Temperature 97.6 F Pulse Rate Pulse Rate [Pulse Oximeter] 53 L Respiratory Rate 20 Blood Pressure [Le ft Arm] 140/69 H Pulse Oximetry 93 97 97 Oxygen Delivery Me thod Room Air Room Air Oxygen Flow Rate 10/24/22 17:02 10/24/22 15:28 10/24/22 23:00 Temperature 97.7 F Pulse Rate 54 L Pulse Rate [Pulse Oximeter] 56 L Respiratory Rate 20 Blood Pressure [Le ft Arm] 152/73 H Pulse Oximetry 97 97 Oxygen Delivery Me thod Room Air Oxygen Flow Rate 10/24/22 23:00 10/24/22 23:00 10/24/22 23:00 Temperature Pulse Rate Pulse Rate [Pulse Oximeter] 56 L Respiratory Rate 20 20 Blood Pressure [Le ft Arm] Pulse Oximetry 97 Oxygen Delivery Me thod Room Air Room Air Oxygen Flow Rate 2 10/25/22 01:30 10/25/22 03:51 10/25/22 06:13 Temperature 97.7 F Pulse Rate 60 Pulse Rate [Pulse Oximeter] 56 L Respiratory Rate 20 Blood Pressure [Le ft Arm] 152/73 H Pulse Oximetry 97 97 Oxygen Delivery Me thod Room Air Oxygen Flow Rate 2 Documenting provider has reviewed patient's vital signs: yes DS: Data Data Completed and Pending Labs on day of discharge: Labs from last 24 hours 10/25/22 08:25 Sodium 137 Potassium 3.7 Chloride 100 Carbon Dioxide 32 BUN 22 Creatinine 0.9 Estimated Creat Clear 63.31 Estimated GFR 96 Glucose 97 Calcium 8.0 L Imaging Chest x-ray: Attestation: I have reviewed the pertinent imaging results. Radiologist's impression: Ordering Physician: Tony Leigh M.D. Date of Service: 10/24/22 Procedure(s): XR chest 1V portable Accession Number(s): [id number] cc: Patel Lugo M.D.; Tony Leigh M.D.~ For Patients: As a result of the 21st Century Cures Act, medical imaging exams and procedure reports are released immediately into your electronic medical record. You may view this report before your referring provider. If you have questions, please contact your health care provider. INDICATION: Dyspnea, hypoxia. TECHNIQUE: Chest 1 views. COMPARISON: 04/17/2022. FINDINGS: Cardiovascular and mediastinum: Heart size and vasculature are normal in caliber and appearance for portable technique. Lungs and pleural spaces: Low lung volumes with bronchovascular crowding. No focal consolidation. No pleural effusion or pneumothorax. Bones and soft tissues: No significant findings. IMPRESSION: Low lung volumes with bronchovascular crowding. No focal consolidation. Dictated by Johan Foreman MD @ 10/24/2022 1:45:52 AM (Electronically Signed) Echo: Attestation: I have reviewed the pertinent imaging results. (Normal LV size, mildly increased wall thickness, estimated EF of 65-70%. Normal RV size and systolic function. Left atrial enlargement. Mitral valve is sclerotic, mild to moderate mitral regurgitation.) Discharge Plan Discharge Disposition: Home, Self-Care Date of Admission: 10/24/22 04:39 Attending Provider on Discharge: Kathie Diaz Primary Care Provider: Patel Lugo Condition: Improved Anticipated Discharge Date/Time: 10/25/22 11:14 Discharge Medications: New furosemide 40 mg Tablet 40 mg PO BID@0800,1400 Qty: 60 0RF potassium chloride 10 mEq Capsule, Extended Release 20 meq PO DAILY Qty: 30 0RF Continued amiodarone 200 mg tablet 200 mg PO BID atorvastatin 80 mg tablet 80 mg PO HS pantoprazole [Protonix] [address] for susp in packet 40 mg PO DAILY gabapentin 300 mg capsule 300 mg PO HS spironolactone 25 mg tablet 50 mg PO DAILY Qty: 90 3RF (DME) compress.stocking,knee,reg,med Misc See Rx Instructions .Route Qty: 2 2RF Rx Instructions: 20-30 mm/hg apixaban 5 mg tablet 5 mg PO BID Qty: 60 2RF Discontinued diltiazem HCl 180 mg capsule,extended release 24hr 180 mg PO DAILY furosemide 20 mg tablet 20 mg PO DAILY metoprolol succinate 25 mg tablet extended release 24 hr 25 mg PO DAILY hydrochlorothiazide 25 mg tablet 25 mg PO DAILY Qty: 90 0RF Discharge Orders: Discharge Order (Routine); Ordered 10/25/22 Ordered By: Kathie Diaz Patient Education: Heart Failure (DC) Additional Instructions: 1. Potassium and ambulatory O2 sat study early next week at PCP visit. 2. Weigh yourself daily and document results. Bring these weights to your doctor's visits. Activity Level: No Restrictions Discharge Diet: 2 gm Sodium Follow Up Appointments: Patel Lugo MD [Primary Care Provider] - (Early next week) Forms: [employer] Info Instructions
[2022-10-25 11:15] VITALS: O2SAT 90; O2SAT 95
[2022-10-25 13:47] VITALS: PULSE 59; RESP 18; TEMP 36.5
--- NOTE | 2022-10-25 13:51 | PC.NURSE ---
Nursing Care Hours: [id number] Pt this shift up independent in room on room air. O2 sats at or above 91%. Voiding in urinal, tolerating regular meal. No c/o pain at this time. R lung sounds coarse with expiration, L lung clear. DC instructions went over with pt, all questions and concerns addressed. Instructed on measuring weights, avoiding extra potassium, SS to look for that warrants coming to ED. IV dc'd. Required prolonged pressure and report writer lifted arm above heart d/t increased bleeding at site. After 5 min, bleeding stopped, extra gauze applied with Coban dressing. Pt wheeled out to his ride by staff.
== END 2022-10-25 13:35 | disposition home or self-care (01) ==
LOC: ED 04:41 → MEDSURG 05:23
PROVIDERS: Family Medicine; Student in an Organized Health Care Education/Training Program; Admitting Provider Family Medicine; Emergency Provider Family Medicine; PCP Internal Medicine; Visit Provider Family Medicine
DX: I50.30 Unspecified diastolic (congestive) heart failure (principal); J96.01 Acute respiratory failure with hypoxia; R00.1 Bradycardia, unspecified; I97.190 Other postprocedural cardiac functional disturbances following cardiac surgery; I48.91 Unspecified atrial fibrillation; I73.9 Peripheral vascular disease, unspecified; I11.0 Hypertensive heart disease with heart failure; I42.1 Obstructive hypertrophic cardiomyopathy; F10.239 Alcohol dependence with withdrawal, unspecified; G47.33 Obstructive sleep apnea (adult) (pediatric); E66.9 Obesity, unspecified; Z68.41 Body mass index [BMI] 40.0-44.9, adult; R93.1 Abnormal findings on diagnostic imaging of heart and coronary circulation; I34.0 Nonrheumatic mitral (valve) insufficiency; Z98.890 Other specified postprocedural states; Z86.79 Personal history of other diseases of the circulatory system; Z87.891 Personal history of nicotine dependence; R79.89 Other specified abnormal findings of blood chemistry; R77.8 Other specified abnormalities of plasma proteins; D72.829 Elevated white blood cell count, unspecified; E87.1 Hypo-osmolality and hyponatremia; Z20.822 Contact with and (suspected) exposure to COVID-19; G62.9 Polyneuropathy, unspecified; E78.5 Hyperlipidemia, unspecified; Z99.81 Dependence on supplemental oxygen
CPT/HCPCS: 36415; 71045; 80048; 82803; 83735; 83880; 84484; 85025; 85379; 86140; 87502; 87634; 87635; 93005; 93306; 94761; 96374; 96375; 96376; 99199; 99284; 99285; 99291; G0378; A9270; G0379; J1940

== ENCOUNTER 2022-10-29 08:20 | Outpatient (CLI) | payer OTHER, SELFPAY ==
[2022-10-29 10:19] LABS: Chloride* 100 mmol/L (96-114); Potassium* 4.4 mmol/L (3.6-5.1); Sodium* 138 mmol/L (135-149)
[2022-10-29 10:22] LABS: Blood Urea Nitrogen* 18 mg/dL (7-30); Carbon Dioxide* 32 mmol/L (20-32); Creatinine* 1.1 mg/dL (0.5-1.5); Estimated Glomerular Filt Rate 75 ml/min; Glucose* 113 mg/dL (60-115)
[2022-10-29 10:23] LABS: Calcium* 9.1 mg/dL (8.4-10.6)
== END 2022-10-29 08:21 | disposition home or self-care (01) ==
PROVIDERS: PCP Internal Medicine; Visit Provider Internal Medicine
DX: I50.30 Unspecified diastolic (congestive) heart failure (principal)
CPT/HCPCS: 80048

== ENCOUNTER 2023-02-25 16:21 | Outpatient (CLI) | payer OTHER, SELFPAY | END 2023-02-25 16:22 | disposition home or self-care (01) | LOC: NFLDREF 16:23 | PROVIDERS: PCP Internal Medicine; Visit Provider Internal Medicine | DX: R53.83 Other fatigue (principal); E87.6 Hypokalemia; E78.5 Hyperlipidemia, unspecified; E66.01 Morbid (severe) obesity due to excess calories; I10 Essential (primary) hypertension | CPT/HCPCS: 80048 ==

== ENCOUNTER 2023-06-20 11:04 | Emergency (ER) | payer OTHER, SELFPAY ==
[2023-06-20 11:08] VITALS: BP 172/75; PULSE 57; RESP 20; TEMP 37; O2SAT 97; BMI 42.9
--- NOTE | 2023-06-20 12:35 | ED.GENADULT ---
HPI - General Adult General Chief complaint: Extremity Pain/Injury, Lower Stated complaint: R knee swollen Time Seen by Provider: 06/20/23 12:35 History of Present Illness HPI narrative: Pt states may have twisted his right knee yesterday. He put ice on it yesterday night and today it is swollen. Very painful. No hx of arthritis or gout. 62-year-old man presenting to the emergency department with right knee pain. Does not recall injuring it. Yesterday started to hurt. He has applied ice. It is also swollen in his noted some redness. Tries to avoid spending time on his knees. Has not had any fever chills. No shortness of breath. He notes that he quit drinking over a year ago. Hurts to bend that. Does not have a gout or inflammatory joint history. But does take gabapentin. He has noted that generally his joints for more achy particularly the upper extremities as he has been out of his gabapentin for 2 or 3 days. Initially notes that does not really spent time on his knees but with further questioning, due to limitations of his left knee, does tend to go down on his right knee when needed to work or adjust something. Unclear if actually anticoagulated Related Data Home Medications Medication Instructions Recorded Confirmed atorvastatin 80 mg tablet 80 mg PO HS 10/24/22 02/25/23 diltiazem HCl 180 mg 180 mg PO DAILY 01/28/23 02/25/23 capsule,extended release 24 hr Previous Rx's Medication Instructions Recorded spironolactone 25 mg tablet 50 mg (2 x 25 mg) PO DAILY 06/11/22 Hypertension #90 tabs compress.stocking,knee,reg,med #2 ea 09/19/22 furosemide 40 mg tablet 40 mg PO BID@0800,1400 Edema #60 04/25/23 tabs valsartan 40 mg tablet 40 mg PO QDAY Hypertension #90 tabs 04/25/23 potassium chloride 10 mEq 20 meq (2 x 10 mEq) PO DAILY 05/19/23 capsule,extended release Hypokalemia #180 caps apixaban 5 mg tablet 5 mg PO BID Atrial Fibrillation 06/18/23 #60 tabs gabapentin 300 mg capsule 300 mg PO QPM for neuropathy #90 06/20/23 caps Allergies Allergy/AdvReac Type Severity Reaction Status Date / Time No Known Allergies Allergy Verified 06/20/23 11:12 Review of Systems Status of ROS: Reports: 6 or more systems reviewed and unremarkable except as noted in History and below [facility] Medical History (Updated 06/20/23 @ 15:40 by Tony Leigh MD) Neuropathy ?G62.9 - Polyneuropathy, unspecified (ICD-10) Fatigue ?R53.83 - Other fatigue (ICD-10) Hypokalemia ?E87.6 - Hypokalemia (ICD-10) Echocardiogram abnormal ?R93.1 - Abnormal findings on diagnostic imaging of heart and coronary circulation (ICD-10) Peripheral vascular disease ?I73.9 - Peripheral vascular disease, unspecified (ICD-10) Atrial fibrillation ?I48.91 - Unspecified atrial fibrillation (ICD-10) Obstructive sleep apnea ?G47.33 - Obstructive sleep apnea (adult) (pediatric) (ICD-10) Hypertrophic obstructive cardiomyopathy ?I42.1 - Obstructive hypertrophic cardiomyopathy (ICD-10) Hypertension (11/30/12) ?I10 - Essential (primary) hypertension (ICD-10) Surgical History (Updated 10/29/22 @ 08:17 by Nori Gillette MD) S/P ablation of atrial fibrillation ?Z98.890 - Other specified postprocedural states (ICD-10) ?Z86.79 - Personal history of other diseases of the circulatory system (ICD-10) History of total right hip replacement ?Z96.641 - Presence of right artificial hip joint (ICD-10) History of appendectomy ?Z90.49 - Acquired absence of other specified parts of digestive tract (ICD-10) Social History (Updated 10/24/22 @ 11:47 by Ezequiel Perez MD) Narrative: Patient is a former smoker having quit about 17 years ago with a 33 pack-year history. History of alcohol use disorder and reports not drinking since April of this year. Highest level of school completed/degree received: high school graduate Smoking Status: Former smoker Do you use any of these nicotine containing products: None Second hand tobacco smoke exposure: No How often do you have a drink containing alcohol: never AUDIT-C Alcohol total score: 0 Non-prescribed substance use: denies use Caffeine: Yes Little interest or pleasure in doing things: several days Feeling down, depressed, or hopeless: not at all service: No Exam Narrative: Exam Narrative: Pleasant. NAD. Seated in exam chair with his legs up. Winces a little bit with movement of his right leg. Generally moderately erythematous and warm anterior right knee. Fullness peripatellar. Negative Homans. No pain to generally to palpation about the calf for the lower extremity other than around the knee. Some fullness in the antigeniculate fossa. Minimal bilateral pitting edema to the lower extremities bilateral Is breathing easily other than sounds a little congested which I think is a natural timbre. Heart is in a slow and regular rhythm. Const: Vital Signs, click to edit/add: Vital Signs - 24 hr 06/20/23 11:08 Temperature 98.6 F Pulse Rate [Right Pulse Oximeter] 57 L Respiratory Rate 20 Blood Pressure [Ri ght Upper Arm] 172/75 H Pulse Oximetry 97 Oxygen Delivery Me thod Room Air Documenting provider has reviewed patient's vital signs: yes Course Vital Signs Vital signs: Initial Vital Signs Temperature 98.6 F 06/20/23 11:08 Temperature Source Temporal Artery Scan 06/20/23 11:08 Pulse Rate 57 L 06/20/23 11:08 Pulse Rhythm Regular 06/20/23 11:08 Pulse Strength 3+ Normal 06/20/23 11:08 Respiratory Rate 20 06/20/23 11:08 Blood Pressure 172/75 H 06/20/23 11:08 Blood Pressure Mean 107 H 06/20/23 11:08 Blood Pressure Position Sitting 06/20/23 11:08 Pulse Oximetry 97 06/20/23 11:08 Oxygen Delivery Method Room Air 06/20/23 11:08 Vital Signs Temperature 98.6 F 06/20/23 11:08 Pulse Rate 57 L 06/20/23 11:08 Respiratory Rate 20 06/20/23 11:08 Blood Pressure 172/75 H 06/20/23 11:08 Pulse Oximetry 97 06/20/23 11:08 Oxygen Delivery Method Room Air 06/20/23 11:08 Temperature 97.9 F 06/20/23 15:57 Pulse Rate 78 06/20/23 15:57 Respiratory Rate 16 06/20/23 15:57 Blood Pressure 168/98 H 06/20/23 15:57 Pulse Oximetry 96 06/20/23 15:57 Oxygen Delivery Method Room Air 06/20/23 15:57 Medical Decision Making MDM Narrative Medical decision making narrative: I think leading diagnosis would be prepatellar bursitis versus a cellulitis. Does not appear to have sustained any trauma. Think there is a small effusion knee anterior aspect of the knee. Does not appear consistent with any sort of DVT or popliteal cyst necessarily other than the fullness in the back of the knee. No history of gout. He feels like he would benefit from some fluids. I don't disagree. Also ketorolac. Will check labs looking for indication that this is maybe more of a cellulitis. Check uric acid. Basic lab plate x-ray to evaluate for spurring or osteoarthritic changes though I think this is more anterior knee, so perhaps more to evaluate the anterior compartment. Labs are reassuring at least with a normal white count. However mild elevation of CRP and more significant elevation of ESR. X-ray reviewed by me show some osteoarthritic changes in the anterior compartment. Radiology notes the prepatellar soft tissue swelling. See radiology over-read below Right knee 3 views Comparison: None Findings: Deformity of the lateral patella noted related to hypertrophic change. Narrowing at the lateral facet of the patellofemoral compartment also noted. There is prepatellar soft tissue swelling. No joint effusion. Vascular calcifications. Medial and lateral compartments maintained. Impression: Patellofemoral compartment degenerative joint disease with chronic hypertrophic change at the lateral facet which may be posttraumatic. Prepatellar soft tissue swelling may represent bursitis. No synovitis. Overall improved with treatments as above. Will place a knee immobilizer though to take some of the stress off the anterior compartment. Allow things to calm down. See patient discharge plan Lab Data Lab results reviewed: Yes I reviewed the patient's lab results Labs: Lab Results 06/20/23 Range/Units 13:25 WBC 9.68 (4.50-11.00) K/uL RBC 4.64 (4.30-5.90) m/uL Hgb 13.9 (13.5-17.5) gm/dL Hct 43.2 (37.0-53.0) % MCV 93 (80-100) fL MCH 30 (26-34) pg MCHC 32 (32-36) gm/dL RDW Coeff of Myles 14.7 (11.5-15.5) % Plt Count 165 (140-440) K/uL Neut % (Auto) 79.3 H (42.0-72.0) % Lymph % (Auto) 11.2 L (20-44) % [place] % (Auto) 8.6 (0.0-11.0) % Eos % (Auto) 0.6 (0.0-7.0) % Baso % (Auto) 0.1 (0.0-3.0) % Neut # (Auto) 7.70 H (1.7-7.0) K/uL Lymph # (Auto) 1.10 (0.90-2.90) K/uL [place] # (Auto) 0.80 (0.00-0.90) K/UL Eos # (Auto) 0.06 (0.00-0.50) K/uL Baso # (Auto) 0.01 (0.00-0.30) K/uL Abs Immat Gran (auto) 0.02 (0.00-0.30) K/uL Imm/Tot Granulo (auto) 0.2 % ESR 37 H (2-15) mm/hr Sodium 136 (135-149) mmol/L Potassium 4.2 (3.6-5.1) mmol/L Chloride 99 (96-114) mmol/L Carbon Dioxide 30 (20-32) mmol/L BUN 16 (7-30) mg/dL Creatinine 0.9 (0.5-1.5) mg/dL Estimated Creat Clear 63.31 Estimated GFR 96 ml/min Glucose 103 (60-115) mg/dL Uric Acid 7.4 (2.2-8.4) mg/dL Calcium 8.9 (8.4-10.6) mg/dL C-Reactive Protein 3.4 H (0.5-1.0) mg/dL Discharge Plan Discharge Clinical Impression: Acute knee pain, Bursitis, prepatellar Patient Disposition: Home, Self-Care Condition: Improved Additional Instructions: Ibuprofen type medications would be helpful in this case however with your anticoagulation we might try prednisone. Take the prednisone as 60 mg daily for 3 days then 40 mg daily for 3 days then 20 mg daily for 2 days Be seen otherwise for marked increase in redness, spreading a couple inches beyond where the redness already is, fever, severe pain Wear the knee immobilizer for comfort over this next week. Avoid kneeling on this knee for now, bumping it into anything. Prednisone from [facility]. Prescriptions: No Action diltiazem HCl 180 mg capsule,extended release 24hr 180 mg PO DAILY atorvastatin 80 mg tablet 80 mg PO HS spironolactone 25 mg tablet 50 mg PO DAILY Qty: 90 3RF (DME) compress.stocking,knee,reg,med Misc See Rx Instructions .Route Qty: 2 2RF Rx Instructions: 20-30 mm/hg furosemide 40 mg tablet 40 mg PO BID@0800,1400 Qty: 60 3RF valsartan 40 mg tablet 40 mg PO QDAY Qty: 90 2RF potassium chloride 10 mEq capsule, extended release 20 meq PO DAILY Qty: 180 2RF apixaban 5 mg tablet 5 mg PO BID Qty: 60 0RF gabapentin 300 mg capsule 300 mg PO QPM Qty: 90 0RF Follow Up/Referrals: Patel Lugo MD [Primary Care Provider] - Stand Alone Forms: [facility] Info Instructions
[2023-06-20 13:36] LABS: Basophils Absolute Auto 0.01 K/uL (0.00-0.30); Basophils Percent Auto 0.1 % (0.0-3.0); Eosinophils Absolute Auto 0.06 K/uL (0.00-0.50); Eosinophils Percent Auto 0.6 % (0.0-7.0); Hematocrit 43.2 % (37.0-53.0); Hemoglobin* 13.9 gm/dL (13.5-17.5); Immature Granulocytes Abs Auto 0.02 K/uL (0.00-0.30); Immature Granulocytes Pct Auto 0.2 %; Lymphocytes Percent Auto 11.2 % (20-44); Mean Corpuscular HGB Conc 32 gm/dL (32-36); Mean Corpuscular Hemoglobin 30 pg (26-34); Mean Corpuscular Volume 93 fL (80-100); Monocytes Percent Auto 8.6 % (0.0-11.0); Neutrophils Percent Auto 79.3 % (42.0-72.0); Platelet Count* 165 K/uL (140-440); RDW Coefficient of Variation % 14.7 % (11.5-15.5); Red Blood Count 4.64 m/uL (4.30-5.90); White Blood Count* 9.68 K/uL (4.50-11.00)
--- NOTE | 2023-06-20 13:37 | CRLHL7_ITS ---
For Patients: As a result of the Cures Act, medical imaging exams and procedure reports are released immediately into your electronic medical record. You may view this report before your referring provider. If you have questions, please contact your health care provider. Indication: Knee pain Technique: Right knee 3 views Comparison: None Findings: Deformity of the lateral patella noted related to hypertrophic change. Narrowing at the lateral facet of the patellofemoral compartment also noted. There is prepatellar soft tissue swelling. No joint effusion. Vascular calcifications. Medial and lateral compartments maintained. Impression: Patellofemoral compartment degenerative joint disease with chronic hypertrophic change at the lateral facet which may be posttraumatic. Prepatellar soft tissue swelling may represent bursitis. No synovitis. Dictated by Tony Mora MD @ 06/20/2023 3:07:11 PM (Electronically Signed)
[2023-06-20] MEDS: 0.9 % SODIUM CHLORIDE 1000 ml 1,000 ML IV (13:40)
[2023-06-20] MEDS: KETOROLAC 15 MG/ML inj IVP (13:40)
[2023-06-20 13:49] LABS: Slide Review Reflex No
[2023-06-20 13:55] LABS: Chloride* 99 mmol/L (96-114); Potassium* 4.2 mmol/L (3.6-5.1); Sodium* 136 mmol/L (135-149)
[2023-06-20 13:57] LABS: Creatinine* 0.9 mg/dL (0.5-1.5); Est. Creatinine Clearance* 63.31; Estimated Glomerular Filt Rate 96 ml/min
[2023-06-20 13:58] LABS: Blood Urea Nitrogen* 16 mg/dL (7-30); Calcium* 8.9 mg/dL (8.4-10.6); Carbon Dioxide* 30 mmol/L (20-32); Glucose* 103 mg/dL (60-115); Uric Acid* 7.4 mg/dL (2.2-8.4)
[2023-06-20 14:01] LABS: C Reactive Protein* 3.4 mg/dL (0.5-1.0)
[2023-06-20 14:37] LABS: Erythrocyte SedimentationRate* 37 mm/hr (2-15)
[2023-06-20 15:57] VITALS: BP 168/98; PULSE 78; RESP 16; TEMP 36.6; O2SAT 96
== END 2023-06-20 15:58 | disposition home or self-care (01) ==
PROVIDERS: Emergency Provider Family Medicine; PCP Internal Medicine
DX: M70.41 Prepatellar bursitis, right knee (principal); M25.561 Pain in right knee
CPT/HCPCS: 36415; 73562; 80048; 84550; 85025; 85651; 86140; 96361; 96374; 99284; J1885; J7030

== ENCOUNTER 2023-08-29 15:32 | Emergency (ER) | payer OTHER, SELFPAY ==
--- NOTE | 2023-08-29 16:18 | CRLHL7_ITS ---
For Patients: As a result of the Cures Act, medical imaging exams and procedure reports are released immediately into your electronic medical record. You may view this report before your referring provider. If you have questions, please contact your health care provider. Indication: Cough Technique: Chest 2 views Comparison: Chest x-ray 10/24/2022 Findings/Impression: Cardiovascular and mediastinum: Mild cardiomegaly with atherosclerotic calcification Lungs and pleural spaces: Mild hyperinflation without pleural effusion or pneumothorax. No focal consolidation. Bones and soft tissues: No significant findings. Dictated by Riccardo Mejia MD @ 08/29/2023 5:28:10 PM (Electronically Signed)
[2023-08-29 16:19] VITALS: BP 167/68; PULSE 52; RESP 16; TEMP 36.1; O2SAT 97; BMI 43.3
[2023-08-29 18:53] VITALS: PULSE 54; RESP 20; O2SAT 97
[2023-08-29 18:56] VITALS: BP 182/108
--- NOTE | 2023-08-29 19:08 | ED.GENADULT ---
HPI - General Adult General Time Seen by Provider: 19:08 Date Seen: 08/29/23 Chief complaint: Cough Stated complaint: Coughing blood Time Seen by Provider: 08/29/23 19:08 Source: patient and RN notes reviewed Mode of arrival: ambulatory Limitations: no limitations History of Present Illness HPI narrative: Delgado is a very pleasant 62-year-old female with a history of hyperlipidemia, morbid obesity, currently on Eliquis secondary to AFib status post ablation who comes to the emergency room for evaluation regarding coughing up blood. Time he states that approximately 3 weeks ago he had came down with a cold. He has been coughing consistently since that time and does have discomfort in his chest mainly related to the cough. He notes that today he started coughing up blood. Prior to that it had been phlegm. He has not had any fever or chills lately but his thinks he did have fever at the onset of this illness. He denies nausea or vomiting. He did not test himself for COVID or was seen at that time. Patient denies abdominal pain, sore throat, runny nose. Related Data Home Medications Medication Instructions Recorded Confirmed atorvastatin 80 mg tablet 80 mg PO HS 10/24/22 02/25/23 diltiazem HCl 180 mg 180 mg PO DAILY 01/28/23 02/25/23 capsule,extended release 24 hr Previous Rx's Medication Instructions Recorded spironolactone 25 mg tablet 50 mg (2 x 25 mg) PO DAILY 06/11/22 Hypertension #90 tabs compress.stocking,knee,reg,med #2 ea 09/19/22 valsartan 40 mg tablet 40 mg PO QDAY Hypertension #90 tabs 04/25/23 potassium chloride 10 mEq 20 meq (2 x 10 mEq) PO DAILY 05/19/23 capsule,extended release Hypokalemia #180 caps gabapentin 300 mg capsule 300 mg PO QPM for neuropathy #90 06/20/23 caps apixaban 5 mg tablet 5 mg PO BID Atrial Fibrillation 07/11/23 #60 tabs furosemide 40 mg tablet 40 mg PO BID@0800,1400 Edema #60 08/19/23 tabs Allergies Allergy/AdvReac Type Severity Reaction Status Date / Time No Known Allergies Allergy Verified 06/20/23 11:12 Review of Systems Status of ROS: Reports: 10 or more systems reviewed and unremarkable except as noted in History and below Const: Denies: fever or chills Eyes: Denies: blurry vision ENMT: Denies: throat pain, neck pain, difficulty swallowing, hoarseness, ear pain or nasal congestion Cardio: Reports: chest pain and shortness of breath with exertion; Denies: palpitations, edema or swelling of feet/ankles Resp: Reports: shortness of breath and cough GI: Denies: abdominal pain, nausea, vomiting, diarrhea or difficulty swallowing : Denies: painful urination Musculo: Reports: back pain (Occasionally); Denies: neck pain Neuro: Denies: headache PFSH [facility] Medical History Neuropathy ?G62.9 - Polyneuropathy, unspecified (ICD-10) Fatigue ?R53.83 - Other fatigue (ICD-10) Hypokalemia ?E87.6 - Hypokalemia (ICD-10) Echocardiogram abnormal ?R93.1 - Abnormal findings on diagnostic imaging of heart and coronary circulation (ICD-10) Peripheral vascular disease ?I73.9 - Peripheral vascular disease, unspecified (ICD-10) Atrial fibrillation ?I48.91 - Unspecified atrial fibrillation (ICD-10) Obstructive sleep apnea ?G47.33 - Obstructive sleep apnea (adult) (pediatric) (ICD-10) Hypertrophic obstructive cardiomyopathy ?I42.1 - Obstructive hypertrophic cardiomyopathy (ICD-10) Hypertension (11/30/12) ?I10 - Essential (primary) hypertension (ICD-10) Surgical History S/P ablation of atrial fibrillation ?Z98.890 - Other specified postprocedural states (ICD-10) ?Z86.79 - Personal history of other diseases of the circulatory system (ICD-10) History of total right hip replacement ?Z96.641 - Presence of right artificial hip joint (ICD-10) History of appendectomy ?Z90.49 - Acquired absence of other specified parts of digestive tract (ICD-10) Social History Narrative: Patient is a former smoker having quit about 17 years ago with a 33 pack-year history. History of alcohol use disorder and reports not drinking since April of this year. Highest level of school completed/degree received: high school graduate Smoking Status: Former smoker Do you use any of these nicotine containing products: None Second hand tobacco smoke exposure: No How often do you have a drink containing alcohol: never How often do you have six or more drinks on one occasion: Never AUDIT-C Alcohol total score: 0 Non-prescribed substance use: denies use Caffeine: Yes Little interest or pleasure in doing things: several days Feeling down, depressed, or hopeless: not at all service: No Exam Narrative: Exam Narrative: Alert and oriented. His is present very loving and supportive. External ears eyes nose clear. TMs without erythema or fluid. Oral cavity moist mucous membranes. Neck is without lymphadenopathy. Heart with a regular rate and rhythm. Lungs are with some crackles in the right lower lung base. Abdomen is obese soft lower extremities moving Const: Vital Signs, click to edit/add: Vital Signs - 24 hr 08/29/23 16:19 08/29/23 18:53 08/29/23 18:56 Temperature 97.0 F L Pulse Rate [Right Pulse Oximeter] 52 L 54 L Respiratory Rate 16 20 Blood Pressure [Ri ght Upper Arm] 167/68 H 182/108 H Pulse Oximetry 97 97 Oxygen Delivery Me thod Room Air Room Air Documenting provider has reviewed patient's vital signs: yes Course Course ED Course: Differential diagnosis includes but is not limited to post COVID bronchitis, pneumonia, and other infection, angina. Will place IV and do a chest x-ray, EKG, drug troponin CBC comprehensive panel CRP. Reevaluation(s) Reevaluation #1: Patient is noted to have a normal white count. He is negative for COVID/influenza/RSV. Normal CRP as well and electrolytes are reassuring. CT of the chest currently pending. Vital Signs Vital signs: Initial Vital Signs Temperature 97.0 F L 08/29/23 16:19 Temperature Source Temporal Artery Scan 08/29/23 16:19 Pulse Rate 52 L 08/29/23 16:19 Pulse Rhythm Regular 08/29/23 16:19 Respiratory Rate 16 08/29/23 16:19 Blood Pressure 167/68 H 08/29/23 16:19 Blood Pressure Mean 101 08/29/23 16:19 Blood Pressure Position Sitting 08/29/23 16:19 Pulse Oximetry 97 08/29/23 16:19 Oxygen Delivery Method Room Air 08/29/23 16:19 Vital Signs Temperature 97.0 F L 08/29/23 16:19 Pulse Rate 52 L 08/29/23 16:19 Respiratory Rate 16 08/29/23 16:19 Blood Pressure 167/68 H 08/29/23 16:19 Pulse Oximetry 97 08/29/23 16:19 Oxygen Delivery Method Room Air 08/29/23 16:19 Temperature 97.0 F L 08/29/23 16:19 Pulse Rate 54 L 08/29/23 18:53 Respiratory Rate 20 08/29/23 18:53 Blood Pressure 182/108 H 08/29/23 18:56 Pulse Oximetry 97 08/29/23 18:53 Oxygen Delivery Method Room Air 08/29/23 18:53 Medical Decision Making MDM Narrative Medical decision making narrative: 1. Hemoptysis-unknown etiology but CT is reassuring at this time. 2. Post viral cough-patient has tested negative for COVID, influenza and RSV. 3. Disposition-patient left prior to results of CT. He signed AMA. He will be following up with his regular doctor this week. Troponin was negative as was CRP. EKG noted to have very small or perhaps absent P waves. Again, patient follow-up this primary this week. Left AMA and thus I did not have an opportunity to discuss results with him. Medical Records Medical records reviewed: Yes I reviewed the patient's medical records Lab Data Lab results reviewed: Yes I reviewed the patient's lab results Labs: Lab Results 08/29/23 08/29/23 Range/Units 19:36 20:15 WBC 5.48 (4.50-11.00) K/uL RBC 4.63 (4.30-5.90) m/uL Hgb 13.4 L (13.5-17.5) gm/dL Hct 43.0 (37.0-53.0) % MCV 93 (80-100) fL MCH 29 (26-34) pg MCHC 31 L (32-36) gm/dL RDW Coeff of Myles 15.2 (11.5-15.5) % Plt Count 201 (140-440) K/uL Neut % (Auto) 59.7 (42.0-72.0) % Lymph % (Auto) 27.7 (20-44) % [place] % (Auto) 8.8 (0.0-11.0) % Eos % (Auto) 3.6 (0.0-7.0) % Baso % (Auto) 0.0 (0.0-3.0) % Neut # (Auto) 3.27 (1.7-7.0) K/uL Lymph # (Auto) 1.52 (0.90-2.90) K/uL [place] # (Auto) 0.50 (0.00-0.90) K/UL Eos # (Auto) 0.20 (0.00-0.50) K/uL Baso # (Auto) 0.00 (0.00-0.30) K/uL Abs Immat Gran (auto) 0.01 (0.00-0.30) K/uL Imm/Tot Granulo (auto) 0.2 % Sodium 138 (135-149) mmol/L Potassium 3.9 (3.6-5.1) mmol/L Chloride 102 (96-114) mmol/L Carbon Dioxide 30 (20-32) mmol/L Anion Gap 6 L (7-15) mEq/L BUN 15 (7-30) mg/dL Creatinine 0.9 (0.5-1.5) mg/dL Estimated Creat Clear 65.77 Estimated GFR 96 ml/min Glucose 89 (60-115) mg/dL Calcium 9.3 (8.4-10.6) mg/dL Total Bilirubin 0.9 (0.1-1.5) mg/dL AST 32 (12-35) U/L ALT 24 (4-50) U/L Alkaline Phosphatase 104 (40-150) U/L C-Reactive Protein < 0.5 L (0.5-1.0) mg/dL Total Protein 7.7 (6.0-8.3) g/dL Albumin 4.2 (3.3-5.0) g/dL SARS-CoV-2 (PCR) Negative SARS-CoV-2 (Negative) Influenza Type A (PCR) Negative PCR FLU A (Negative) Influenza Type B (PCR) Negative PCR FLU B (Negative) RSV (PCR) Negative PCR RSV (Negative) POC Troponin I 0.01 (0.01-0.04) ng/ml Imaging Data Chest x-ray: Attestation: I have reviewed the pertinent imaging results. My impression: I do not note any infiltrates. Radiologist's impression: Cardiovascular and mediastinum: Mild cardiomegaly with atherosclerotic calcification Lungs and pleural spaces: Mild hyperinflation without pleural effusion or pneumothorax. No focal consolidation. Bones and soft tissues: No significant findings. CT scan - chest: Attestation: I have reviewed the pertinent imaging results. Radiologist's impression: Lungs and pleura: Calcified granuloma in the right lower lobe. No focal consolidation. Heart and vasculature: No cardiomegaly, no pericardial effusion. Atherosclerotic coronary artery calcifications. No central pulmonary embolus. Thyroid and lower neck: No suspicious thyroid nodule. Mediastinum/petra: No lymphadenopathy. A few calcified subcarinal and right hilar lymph nodes. Mediastinal lipomatosis. Chest wall: No axillary lymphadenopathy. Bilateral gynecomastia. Upper abdomen: No acute abnormality. Bones: Multilevel degenerative changes of the spine. No suspicious/aggressive focal osseous lesion. IMPRESSION: 1. No focal consolidation. 2. Sequelae of granulomatous disease. ECG Data Attestation: I personally reviewed and interpreted this ECG as follows: Interpretation: EKG shows heart rate at 54. Narrow complex? Sinus rhythm versus junctional rhythm. QT interval normal Discharge Plan Discharge Prescriptions: No Action diltiazem HCl 180 mg capsule,extended release 24hr 180 mg PO DAILY atorvastatin 80 mg tablet 80 mg PO HS spironolactone 25 mg tablet 50 mg PO DAILY Qty: 90 3RF (DME) compress.stocking,knee,reg,med Misc See Rx Instructions .Route Qty: 2 2RF Rx Instructions: 20-30 mm/hg valsartan 40 mg tablet 40 mg PO QDAY Qty: 90 2RF potassium chloride 10 mEq capsule, extended release 20 meq PO DAILY Qty: 180 2RF gabapentin 300 mg capsule 300 mg PO QPM Qty: 90 0RF apixaban 5 mg tablet 5 mg PO BID Qty: 60 3RF furosemide 40 mg tablet 40 mg PO BID@0800,1400 Qty: 60 0RF Follow Up/Referrals: Patel Lugo MD [Primary Care Provider] -
--- NOTE | 2023-08-29 19:36 | CRLHL7_ITS ---
For Patients: As a result of the Century Cures Act, medical imaging exams and procedure reports are released immediately into your electronic medical record. You may view this report before your referring provider. If you have questions, please contact your health care provider. INDICATION: Hemoptysis. TECHNIQUE: CT chest with 118 mL Isovue 370 IV contrast. COMPARISON: CT chest dated 04/12/2022. FINDINGS: Lungs and pleura: Calcified granuloma in the right lower lobe. No focal consolidation. Heart and vasculature: No cardiomegaly, no pericardial effusion. Atherosclerotic coronary artery calcifications. No central pulmonary embolus. Thyroid and lower neck: No suspicious thyroid nodule. Mediastinum/petra: No lymphadenopathy. A few calcified subcarinal and right hilar lymph nodes. Mediastinal lipomatosis. Chest wall: No axillary lymphadenopathy. Bilateral gynecomastia. Upper abdomen: No acute abnormality. Bones: Multilevel degenerative changes of the spine. No suspicious/aggressive focal osseous lesion. IMPRESSION: 1. No focal consolidation. 2. Sequelae of granulomatous disease. Please note that all CT scans at this facility use dose modulation, iterative reconstruction, and/or weight-based dosing when appropriate to reduce radiation dose to as low as reasonably achievable. Dictated by Alireza Livingston MD @ 08/29/2023 11:14:55 PM (Electronically Signed)
[2023-08-29 20:20] LABS: Eosinophils Percent Auto 3.6 % (0.0-7.0); Hemoglobin* 13.4 gm/dL (13.5-17.5); Immature Granulocytes Abs Auto 0.01 K/uL (0.00-0.30); Immature Granulocytes Pct Auto 0.2 %; Lymphocytes Absolute Auto 1.52 K/uL (0.90-2.90); Lymphocytes Percent Auto 27.7 % (20-44); Mean Corpuscular HGB Conc 31 gm/dL (32-36); Mean Corpuscular Hemoglobin 29 pg (26-34); Mean Corpuscular Volume 93 fL (80-100); Monocytes Percent Auto 8.8 % (0.0-11.0); Neutrophils Absolute Auto 3.27 K/uL (1.7-7.0); Neutrophils Percent Auto 59.7 % (42.0-72.0); Platelet Count* 201 K/uL (140-440); RDW Coefficient of Variation % 15.2 % (11.5-15.5); Red Blood Count 4.63 m/uL (4.30-5.90); White Blood Count* 5.48 K/uL (4.50-11.00)
[2023-08-29 20:30] LABS: Troponin, Point-of-Care* 0.01 ng/ml (0.01-0.04)
[2023-08-29 20:33] LABS: Chloride* 102 mmol/L (96-114)
[2023-08-29 20:34] LABS: Albumin* 4.2 g/dL (3.3-5.0); Potassium* 3.9 mmol/L (3.6-5.1); Sodium* 138 mmol/L (135-149)
[2023-08-29 20:36] LABS: Creatinine* 0.9 mg/dL (0.5-1.5); Est. Creatinine Clearance* 65.77; Estimated Glomerular Filt Rate 96 ml/min
[2023-08-29 20:37] LABS: Alanine Aminotransferase* 24 U/L (4-50); Alkaline Phosphatase* 104 U/L (40-150); Anion Gap 6 mEq/L (7-15); Aspartate Amino Transferase* 32 U/L (12-35); Bilirubin Total* 0.9 mg/dL (0.1-1.5); Blood Urea Nitrogen* 15 mg/dL (7-30); Carbon Dioxide* 30 mmol/L (20-32); Glucose* 89 mg/dL (60-115); Total Protein* 7.7 g/dL (6.0-8.3)
[2023-08-29 20:38] LABS: Calcium* 9.3 mg/dL (8.4-10.6)
[2023-08-29 20:43] LABS: PCR FLU A Negative PCR FLU A (Negative); PCR FLU B Negative PCR FLU B (Negative); PCR RSV Negative PCR RSV (Negative)
[2023-08-29 20:54] LABS: C Reactive Protein* < 0.5 mg/dL (0.5-1.0); Slide Review Reflex No
[2023-08-29 20:55] LABS: SARS PCR* Negative SARS-CoV-2 (Negative)
--- NOTE | 2023-08-29 21:01 | ED.NURSE ---
Pt report given off to oncoming RN
== END 2023-08-29 22:51 | disposition home or self-care (01) ==
PROVIDERS: Emergency Provider Family Medicine; PCP Internal Medicine
DX: R04.2 Hemoptysis (principal); Z53.29 Procedure and treatment not carried out because of patient's decision for other reasons
CPT/HCPCS: 36415; 71046; 71260; 80053; 84484; 85025; 86140; 87631; 93005; 99284; 99285; Q9967

== ENCOUNTER 2024-04-02 07:35 | Outpatient (CLI) | payer OTHER, SELFPAY ==
--- OUTSIDE RECORDS SUMMARY | 2024-04-06 20:30 | XMS_ITS | Clinical Summary ---
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 0 08/02/2022 Active gabapentin (NEURONTIN) 300 mg capsule Take 1 Capsule (300 mg) by mouth at bedtime. 0 08/02/2022 Active metoprolol succinate (TOPROL XL) 25 mg Sustained-Release tabletIndications:Persi stent atrial fibrillation (HC) Take 1 Tablet (25 mg) by mouth once daily. Taking until the 09/19/2022 Active apixaban (ELIQUIS) 5 mg tabletIndications:preve nt thromboembolism in chronic atrial fibrillation Take 1 Tablet (5 mg) by mouth two times daily. 180 Tablet 09/19/2022 Active hydroCHLOROthiazide (HCTZ) 25 mg tablet Take 1 Tablet (25 mg) by mouth once daily. Takes 10mg daily 0 05/05/2023 Active furosemide (Lasix) 40 mg tablet Take 40 mg by mouth two times daily. Active valsartan (DIOVAN) 40 mg tabletIndications:Persi stent atrial fibrillation (HC) Take 1 Tablet (40 mg) by mouth two times daily. 180 Tablet 3 05/05/2023 Active dilTIAZem CD (CARDIZEM CD) 120 mg extended release 24 hr capsuleIndications:Pers istent atrial fibrillation (HC) Take 1 Capsule (120 mg) by mouth once daily. 90 Capsule 3 05/05/2023 Active spironolactone (ALDACTONE) 25 mg tabletIndications:Persi stent atrial fibrillation (HC) Take 1 Tablet (25 mg) by mouth once daily. 90 Tablet 3 05/05/2023 Active atorvastatin (LIPITOR) 80 mg tabletIndications:Persi stent atrial fibrillation (HC) TAKE ONE TABLET BY MOUTH ONE TIME DAILY AT BEDTIME 90 Tablet 2 09/15/2023 Active Active Problems Problem Noted Date Diagnosed Date Status post unsuccessful ext ernal direct current cardioversion for persistent atrial fibrillation on 08/19/2022 08/19/2022 Persistent atrial fibrillation Social History Tobacco Use Types Packs/Day Years Used Date Smoking Tobacco: Former Cigarettes 1 33 1 [phone] - 2004 Smokeless Tobacco: Never Alcohol Use Standard Drinks/Week Comments Not Currently 0 (1 standard drink = 0.6 oz pur e alcohol) quit 04/2022 Social Connections Answer Date Recorded Frequency of Communication with Friends and Fami ly Not on file 08/02/2022 Sex and Gender Information Value Date Recorded Sex Assigned at Not on file Gender Identity Not on file Sexual Orientation Not on file Obstetrics History Last Filed Vital Signs Vital Sign Reading Time Taken Comments Blood Pressure 164/74 05/05/2023 2:11 PM CDT Pulse 49 05/05/2023 2:11 PM CDT Temperature 36.3 ??C (97.4 ??F) 2022 5:49 AM CS T Respiratory Rate 16 2022 5:49 AM 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 Oxygen Saturation 95% 05/05/2023 2:11 PM CDT Inhaled Oxygen Concentration - - Weight 117.9 kg (260 lb) 05/05/2023 2:11 PM CDT Height 163.8 cm (5' 4.5) 05/05/2023 2:11 PM CDT Body Mass Index 43.94 05/05/2023 2:11 PM CDT Plan of Treatment Health Maintenance Due Date Last Done Comments Tdap 1970 Depression screening for age 12+ 1971 HIV for age 15-65 1974 Hepatitis C screening for ag e 18-79 1977 Tetanus booster 1979 Colonoscopy through age 75 2004 Lipids for age 45-75 2004 Zoster (shingles) series for age 50+ (1 of 2) 2009 COVID-19 vaccine series ( season) 2023 06/08/2021 BMI (ht and wt on same day) for age 18+ 05/05/2024 05/05/2023 Influenza for age 50-64 07/04/2024 Pneumococcal series for age 6-64 Aged Out No longer eligible based on patient's age to complete this topic Advance Directives * Full Code (Latest Code Status on File) Date Activated Date Inactivated Comments 10/22/2022 1:30 PM 2022 12:27 PM Question Answer Comments Code Status Discussion: Other (specify in commen ts): * Full Code Date Activated Date Inactivated Comments 09/19/2022 6:59 AM 09/19/2022 12:14 PM Question Answer Comments Code Status Discussion: Other * Full Code Date Activated Date Inactivated Comments 08/19/2022 9:06 AM 08/19/2022 12:44 PM Question Answer Comments Code Status Discussion: Other 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
== END 2024-04-02 07:36 | disposition home or self-care (01) ==
LOC: NFLDREF 04-06 20:28
PROVIDERS: PCP Internal Medicine; Referring Provider Internal Medicine; Visit Provider Internal Medicine
DX: E78.5 Hyperlipidemia, unspecified (principal); I10 Essential (primary) hypertension; Z12.5 Encounter for screening for malignant neoplasm of prostate
CPT/HCPCS: 80053; 80061; G0103

== ENCOUNTER 2024-09-11 18:23 | Emergency (ER) | payer OTHER, SELFPAY ==
[2024-09-11 18:30] VITALS: BP 163/69; PULSE 68; RESP 18; TEMP 37.6; O2SAT 95; BMI 44.9
--- NOTE | 2024-09-11 18:48 | CRLHL7_ITS ---
For Patients: As a result of the Cures Act, medical imaging exams and procedure reports are released immediately into your electronic medical record. You may view this report before your referring provider. If you have questions, please contact your health care provider. INDICATION: Right flank pain. TECHNIQUE: CT abdomen and pelvis without contrast. COMPARISON: None. FINDINGS: Lower chest: Unremarkable. Liver: Normal in size and attenuation. No suspicious masses. Gallbladder and bile ducts: No stones or inflammation. No biliary dilatation. Pancreas: Unremarkable. No mass or inflammation. Spleen: Normal in size. No masses. Adrenal glands: Normal in size. No nodules. Kidneys: Moderate bilateral atrophy. No suspicious masses, stones, or hydronephrosis. GI tract: Unremarkable. Normal in caliber. No sign of mass or inflammation. Post appendectomy. Vasculature: Abdominal aorta is normal in caliber. Lymph nodes: No lymphadenopathy. Peritoneum/Abdominal Wall: Unremarkable. No sign of mass or infiltration. No free air or significant free fluid. Pelvis: Unremarkable. No pelvic masses. Bones: Severe left hip joint arthritis. Pars defects at L5 with spondylolisthesis at L5-S1. IMPRESSION: No acute or specific finding to explain right flank pain. No current kidney or ureteral stones and no hydronephrosis. Please note that all CT scans at this facility use dose modulation, iterative reconstruction, and/or weight-based dosing when appropriate to reduce radiation dose to as low as reasonably achievable. Dictated by Jose Daniel Molina MD @ 09/11/2024 7:17:18 PM (Electronically Signed)
--- NOTE | 2024-09-11 18:49 | ED.GENADULT ---
HPI - General Adult General Chief complaint: Urogenital Problems, Male Stated complaint: passing blood Time Seen by Provider: 09/11/24 18:40 Source: patient Mode of arrival: ambulatory Limitations: no limitations History of Present Illness HPI narrative: 63-year-old male, complicated medical history, presenting today with hematuria. Patient states that this afternoon every time he urinated it was bright red. He denies feeling dizzy or lightheaded. He complains of pain in the penis, testicles, right groin, right lower abdomen and right flank area. He states that he felt feverish earlier but did not have a measured temperature. He denies chills, nausea or vomiting. No chest pain or shortness of breath. No trauma to the abdomen or penis. He denies swelling of the groin. Related Data Previous Rx's ?Medication ?Instructions ?Recorded compress.stocking,knee,reg,med #2 ea 09/19/22 albuterol sulfate 90 mcg/actuation 2 puff inhalation Q6H PRN 01/14/24 aerosol inhaler shortness of breath or wheezing #8.5 grams apixaban 5 mg tablet 5 mg PO BID Atrial Fibrillation 04/07/24 #60 tabs atorvastatin 80 mg tablet 80 mg PO HS #90 tabs 04/07/24 diltiazem HCl 180 mg 180 mg PO DAILY #90 caps 04/07/24 capsule,extended release 24 hr gabapentin 300 mg capsule 300 mg PO QPM for neuropathy #90 04/07/24 caps potassium chloride 10 mEq 20 meq (2 x 10 mEq) PO DAILY 04/07/24 capsule,extended release Hypokalemia #180 caps valsartan 40 mg tablet 40 mg PO QDAY Hypertension #90 tabs 04/07/24 spironolactone 50 mg tablet 50 mg PO QDAY #90 tabs 06/23/24 furosemide 40 mg tablet 40 mg PO BID@0800,1400 Edema #60 07/15/24 tabs Allergies Allergy/AdvReac Type Severity Reaction Status Date / Time No Known Allergies Allergy Verified 09/11/24 18:39 Review of Systems Status of ROS: Reports: 10 or more systems reviewed and unremarkable except as noted in History and below [facility] Medical History SOB (shortness of breath) ?R06.02 - Shortness of breath (ICD-10) Neuropathy ?G62.9 - Polyneuropathy, unspecified (ICD-10) Fatigue ?R53.83 - Other fatigue (ICD-10) Hypokalemia ?E87.6 - Hypokalemia (ICD-10) Echocardiogram abnormal ?R93.1 - Abnormal findings on diagnostic imaging of heart and coronary circulation (ICD-10) Peripheral vascular disease ?I73.9 - Peripheral vascular disease, unspecified (ICD-10) Atrial fibrillation ?I48.91 - Unspecified atrial fibrillation (ICD-10) Obstructive sleep apnea ?G47.33 - Obstructive sleep apnea (adult) (pediatric) (ICD-10) Hypertrophic obstructive cardiomyopathy ?I42.1 - Obstructive hypertrophic cardiomyopathy (ICD-10) Hypertension (11/30/12) ?I10 - Essential (primary) hypertension (ICD-10) Surgical History S/P ablation of atrial fibrillation ?Z98.890 - Other specified postprocedural states (ICD-10) ?Z86.79 - Personal history of other diseases of the circulatory system (ICD-10) History of total right hip replacement ?Z96.641 - Presence of right artificial hip joint (ICD-10) History of appendectomy ?Z90.49 - Acquired absence of other specified parts of digestive tract (ICD-10) Social History (Updated 04/08/24 @ 07:44 by Reina Haji ~ [facility]) Narrative: Patient is a former smoker having quit about 17 years ago with a 33 pack-year history. History of alcohol use disorder and reports not drinking since April of this year. What is your current living situation?: I presently have a place to live Problems where you live: unable to answer In the past 12 months, utilities in danger of being shut off: no In past 12 months, lack of transportation kept you from medical appts, meetings, work, or getting things needed for daily living: no In the past 12 mos, have been you worried that your food would run out before you had money to buy more?: unable to answer In the past 12 mos, the food you bought just didn't last and you didn't have money to buy more?: declined to answer Highest level of school completed/degree received: high school graduate Smoking Status: Former smoker Do you use any of these nicotine containing products: None Second hand tobacco smoke exposure: No How often do you have a drink containing alcohol: never How often do you have six or more drinks on one occasion: Never AUDIT-C Alcohol total score: 0 Non-prescribed substance use: denies use Caffeine: Yes How often does anyone, including family, friends and others, physically hurt you: never How often does anyone, including family, friends and others, insult or talk down to you: never How often does anyone, including family, friends and others, threaten you with harm: never How often does anyone, including family, friends and others, scream or curse at you: sometimes Little interest or pleasure in doing things: not at all Feeling down, depressed, or hopeless: not at all service: No Exam Narrative: Exam Narrative: Obese, well-developed patient in no acute distress. Alert and oriented. Answers questions appropriately. Mood and affect are appropriate. Thoughts are goal oriented and rational. No tangential or magical thinking noted. HEENT: Normocephalic atraumatic. Pupils are equally round reactive to light. Extraocular muscles are intact. Conjunctivae are moist without any icterus noted. Moist mucous membranes. Abdomen is protuberant, soft. Has some mild right-sided flank pain. Lungs have decreased breath sounds bilaterally. Const: Vital Signs, click to edit/add: Vital Signs - 24 hr 09/11/24 18:30 Temperature 99.7 F H Pulse Rate [Right Pulse Oximeter] 68 Respiratory Rate 18 Blood Pressure [Ri ght Upper Arm] 163/69 H Pulse Oximetry 95 Oxygen Delivery Me thod Room Air Course Course ED Course: Differential diagnosis at this time includes UTI, renal stone, pyelonephritis, nephritic syndrome. CBC does show a slightly elevated white cell count at 12.49, hemoglobin is 13.2. Normal lactate. UA shows 3+ blood, positive nitrites, and 3+ leukocyte esterase, greater than 100 wbc's and greater than 100 rbc's. Chemistries are unremarkable. Abdominal CT does not show any evidence of hydronephrosis, pyelonephritis or renal stones. Discussed why the patient is taking Eliquis. Patient states that he believes it is for atrial fibrillation but states he has not had atrial fibrillation in over a year when he had a cardiac ablation. Vital Signs Vital signs: Initial Vital Signs Temperature 99.7 F H 09/11/24 18:30 Temperature Source Temporal Artery Scan 09/11/24 18:30 Pulse Rate 68 09/11/24 18:30 Pulse Rhythm Regular 09/11/24 18:30 Pulse Strength 3+ Normal 09/11/24 18:30 Respiratory Rate 18 09/11/24 18:30 Blood Pressure 163/69 H 09/11/24 18:30 Blood Pressure Mean 100 09/11/24 18:30 Blood Pressure Position Sitting 09/11/24 18:30 Pulse Oximetry 95 09/11/24 18:30 Oxygen Delivery Method Room Air 09/11/24 18:30 Vital Signs Temperature 99.7 F H 09/11/24 18:30 Pulse Rate 68 09/11/24 18:30 Respiratory Rate 18 09/11/24 18:30 Blood Pressure 163/69 H 09/11/24 18:30 Pulse Oximetry 95 09/11/24 18:30 Oxygen Delivery Method Room Air 09/11/24 18:30 Temperature 99.7 F H 09/11/24 18:30 Pulse Rate 68 09/11/24 18:30 Respiratory Rate 18 09/11/24 18:30 Blood Pressure 163/69 H 09/11/24 18:30 Pulse Oximetry 95 09/11/24 18:30 Oxygen Delivery Method Room Air 09/11/24 18:30 Medical Decision Making MDM Narrative Medical decision making narrative: 63-year-old male with hematuria, no evidence of stones. Given his abnormal urine elevated white cell count I do believe patient has a UTI. Therefore, we will treat with Macrobid b.i.d. for 7 days. Patient was hold his [employer] tonight and tomorrow. Restart on Friday. He will follow up with primary care on Friday for repeat hemoglobin. He will return to the ER if he becomes dizzy or lightheaded, developed shortness of breath or chest pain in the meantime. Lab Data Lab results reviewed: Yes I reviewed the patient's lab results Labs: Lab Results 09/11/24 09/11/24 Range/Units 18:55 19:12 WBC 12.49 H (4.50-11.00) K/uL RBC 4.30 (4.30-5.90) m/uL Hgb 13.2 L (13.5-17.5) gm/dL Hct 41.1 (37.0-53.0) % MCV 96 (80-100) fL MCH 31 (26-34) pg MCHC 32 (32-36) gm/dL RDW Coeff of [place]les 14.3 (11.5-15.5) % Plt Count 171 (140-440) K/uL Neut % (Auto) 85.8 H (42.0-72.0) % Lymph % (Auto) 6.6 L (20-44) % [place] % (Auto) 7.0 (0.0-11.0) % Eos % (Auto) 0.3 (0.0-7.0) % Baso % (Auto) 0.1 (0.0-3.0) % Neut # (Auto) 10.70 H (1.7-7.0) K/uL Lymph # (Auto) 0.80 L (0.90-2.90) K/uL [place] # (Auto) 0.90 (0.00-0.90) K/UL Eos # (Auto) 0.00 (0.00-0.50) K/uL Baso # (Auto) 0.00 (0.00-0.30) K/uL Abs Immat Gran (auto) 0.00 (0.00-0.30) K/uL Imm/Tot Granulo (auto) 0.2 % Sodium 134 L (135-149) mmol/L Potassium 4.1 (3.6-5.1) mmol/L Chloride 98 (96-114) mmol/L Carbon Dioxide 26 (20-32) mmol/L Anion Gap 10 (7-15) mEq/L BUN 18 (7-30) mg/dL Creatinine 0.9 (0.5-1.5) mg/dL Estimated Creat Clear 64.92 Estimated GFR 95 ml/min Glucose 129 H (60-115) mg/dL Lactate 1.5 (0.5-1.9) mmol/L Calcium 9.1 (8.4-10.6) mg/dL C-Reactive Protein 0.8 (0.5-1.0) mg/dL Urine Color Yellow (Yellow) Urine Appearance Clear (Clear) Urine pH 5.5 (5.0-8.5) Ur Specific [place] 1.020 (1.000-1.030) Urine Protein 3+ A (Negative) Urine Glucose (UA) Negative (Negative) Urine Ketones 1+ A (Negative) Urine Blood 3+ A (Negative) Urine Nitrite Positive A (Negative) Urine Bilirubin 2+ A (Negative) Urine Urobilinogen 1.0 (0.2-1.0) Ur Leukocyte Esterase 3+ A (Negative) Urine RBC >100 A (0-2) Urine WBC >100 A (0-5) Ur Squamous Epith Cells None (None-Few) 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 Radiologist's impression: CT abdomen and pelvis without contrast. COMPARISON: None. FINDINGS: Lower chest: Unremarkable. Liver: Normal in size and attenuation. No suspicious masses. Gallbladder and bile ducts: No stones or inflammation. No biliary dilatation. Pancreas: Unremarkable. No mass or inflammation. Spleen: Normal in size. No masses. Adrenal glands: Normal in size. No nodules. Kidneys: Moderate bilateral atrophy. No suspicious masses, stones, or hydronephrosis. GI tract: Unremarkable. Normal in caliber. No sign of mass or inflammation. Post appendectomy. Vasculature: Abdominal aorta is normal in caliber. Lymph nodes: No lymphadenopathy. Peritoneum/Abdominal Wall: Unremarkable. No sign of mass or infiltration. No free air or significant free fluid. Pelvis: Unremarkable. No pelvic masses. Bones: Severe left hip joint arthritis. Pars defects at L5 with spondylolisthesis at L5-S1. IMPRESSION: No acute or specific finding to explain right flank pain. No current kidney or ureteral stones and no hydronephrosis. Discharge Plan Discharge Clinical Impression: Hematuria, Acute UTI Additional Instructions: Do not take your Eliquis tonight or tomorrow. Restart the Eliquis on Friday. Take all antibiotics as prescribed. Macrobid b.i.d. for 7 days sent to [facility]. You will need to follow-up with a primary care provider on Friday to have a repeat hemoglobin done. If you develop shortness of breath, dizziness or lightheadedness, or chest pain then you should return to the emergency room. Prescriptions: No Action apixaban 5 mg tablet 5 mg PO BID Qty: 60 3RF atorvastatin 80 mg tablet 80 mg PO HS Qty: 90 3RF diltiazem HCl 180 mg capsule,extended release 24hr 180 mg PO DAILY Qty: 90 3RF gabapentin 300 mg capsule 300 mg PO QPM Qty: 90 3RF potassium chloride 10 mEq capsule, extended release 20 meq PO DAILY Qty: 180 1RF valsartan 40 mg tablet 40 mg PO QDAY Qty: 90 2RF albuterol sulfate 90 mcg/actuation HFA aerosol inhaler 2 puff inhalation Q6H PRN (Reason: shortness of breath or wheezing) Qty: 8.5 0RF (DME) compress.stocking,knee,reg,med Misc See Rx Instructions .Route Qty: 2 2RF Rx Instructions: 20-30 mm/hg spironolactone 50 mg tablet 50 mg PO QDAY Qty: 90 0RF furosemide 40 mg tablet 40 mg PO BID@0800,1400 Qty: 60 2RF Follow Up/Referrals: Patel Lugo MD [Primary Care Provider] - Stand Alone Forms: MyHealth Info Instructions
--- OUTSIDE RECORDS SUMMARY | 2024-09-11 18:55 | XMS_ITS | Clinical Summary ---
Author Organization [facility] Address [place], [place] [address] Care Team Providers Care Cartridge Maker Name Role Phone Patel Lugo MD Primary Care Provider [phone] Allergies No known active allergies Medications Medication [...] times daily. 180 Tablet 3 05/05/2023 Active spironolactone (ALDACTONE) 25 mg tabletIndications:Persi stent atrial fibrillation (HC) Take 1 Tablet (25 mg) by mouth once daily. 90 Tablet 3 05/05/2023 Active atorvastatin (LIPITOR) 80 mg tabletIndications:Persi stent atrial fibrillation (HC) TAKE ONE TABLET BY MOUTH ONE TIME DAILY AT BEDTIME 90 Tablet 2 09/15/2023 Active dilTIAZem CD (CARDIZEM CD) 120 mg extended release 24 hr capsuleIndications:Pers istent atrial fibrillation (HC) Take 1 Capsule (120 mg) by mouth once daily. 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
[2024-09-11 19:03] LABS: Appearance Urine Clear (Clear); Bilirubin Urine 2+ (Negative); Blood Urine 3+ (Negative); Color Urine Yellow (Yellow); Glucose Urine Negative (Negative); Ketones Urine 1+ (Negative); Leukocyte Esterase Urine 3+ (Negative); Nitrite Urine Positive (Negative); Protein Urine 3+ (Negative); pH Urine 5.5 (5.0-8.5)
[2024-09-11 19:15] LABS: Bacteria Urine Many; RBC Urine >100 (0-2); WBC Urine >100 (0-5)
[2024-09-11 19:17] LABS: Basophils Percent Auto 0.1 % (0.0-3.0); Eosinophils Percent Auto 0.3 % (0.0-7.0); Hematocrit 41.1 % (37.0-53.0); Hemoglobin* 13.2 gm/dL (13.5-17.5); Immature Granulocytes Pct Auto 0.2 %; Lymphocytes Percent Auto 6.6 % (20-44); Mean Corpuscular HGB Conc 32 gm/dL (32-36); Mean Corpuscular Hemoglobin 31 pg (26-34); Mean Corpuscular Volume 96 fL (80-100); Neutrophils Percent Auto 85.8 % (42.0-72.0); Platelet Count* 171 K/uL (140-440); RDW Coefficient of Variation % 14.3 % (11.5-15.5); White Blood Count* 12.49 K/uL (4.50-11.00)
[2024-09-11 19:19] LABS: Slide Review Reflex No
[2024-09-11 19:20] LABS: Lactate* 1.5 mmol/L (0.5-1.9)
[2024-09-11 19:51] LABS: Chloride* 98 mmol/L (96-114); Potassium* 4.1 mmol/L (3.6-5.1); Sodium* 134 mmol/L (135-149)
[2024-09-11 19:54] LABS: Anion Gap 10 mEq/L (7-15); Blood Urea Nitrogen* 18 mg/dL (7-30); Carbon Dioxide* 26 mmol/L (20-32); Creatinine* 0.9 mg/dL (0.5-1.5); Est. Creatinine Clearance* 64.92; Estimated Glomerular Filt Rate 95 ml/min; Glucose* 129 mg/dL (60-115)
[2024-09-11 19:55] LABS: Calcium* 9.1 mg/dL (8.4-10.6)
[2024-09-11 19:57] LABS: C Reactive Protein* 0.8 mg/dL (0.5-1.0)
== END 2024-09-11 20:39 | disposition home or self-care (01) ==
LOC: ED 18:54
PROVIDERS: Emergency Provider Family Medicine; PCP Internal Medicine
DX: N39.0 Urinary tract infection, site not specified (principal)
CPT/HCPCS: 36415; 74176; 80048; 81001; 83605; 85025; 86140; 87086; 87186; 99283; 99284

== ENCOUNTER 2024-09-14 13:49 | Inpatient (IN) | payer OTHER, SELFPAY ==
[2024-09-14] VITALS (21 sets, daily range): BP systolic 87–135; BP diastolic 62–104; PULSE 83–132; RESP 16–24; TEMP 36.7–37; O2SAT 92–96; BMI 42.9
--- NOTE | 2024-09-14 13:54 | ED.GENADULT ---
HPI - General Adult General Date Seen: 09/14/24 Chief complaint: Urogenital Problems, Male Stated complaint: Swelling testes, urinary retention Time Seen by Provider: 09/14/24 13:54 History of Present Illness HPI narrative: 63-year-old gentleman referred from the primary care clinic today for evaluation. His past medical history includes hyperlipidemia, history of alcoholism, elevated BMI, hypertension, atrial fibrillation, status post ablation and bradycardia, sleep apnea, hypertrophic cardiomyopathy. Prior appendectomy. He was here in the ER on 09/11, 3 days ago. He had presented with hematuria and bright red blood in his urine. Also pain in his penis, testicles, groin and right lower abdomen and right flank. According to the ER notes he felt ?feverish that day. Temp was 99.7?. Pulse 68. Blood pressure 163/69. Labs showed a white count of 12.5, hemoglobin 13.2, platelet 171. Creatinine 0.9, BUN 18. Glucose 129. Venous lactic 1.5. CRP 0.8. Urinalysis positive with positive nitrite,> 100 RBC and> [address] scan of his abdomen and pelvis showed no acute finding to explain right flank pain. No kidney stones. He was discharged with Macrobid for UTI. Since discharge his urine cultures come back growing pansensitive E coli. He followed up in clinic today with Dr. Lugo. Dr. Lugo reports that he has had increasing swelling of his penis, testicles and scrotum. He has had difficulty passing urine. His troponin is becoming increasingly painful. The patient says that since he was discharged home on the Macrobid he also stopped his Eliquis to stop the bleeding. He has noted less bleeding. He has had still frequency and urgency to urinate. Sometimes he has dysuria affecting his penis at the very end of the stream. He has noted progressively worsening pain and swelling affecting his right testicle, but not his left testicle. He still has some pain in his right flank as well but that is not as intense the Friday. He has had some fever and chills. Although Dr. Lugo was concerned that the patient was having urinary retention because he has so much swelling around his penis, he has been able to void normally and just urinated upon arriving here to the ER. He also has a history of paroxysmal AFib. He has had previous cardioversions that were ineffective in previous ablation. It sounds like he still goes in and out of AFib from time to time. He has been feeling palpitations indicative AFib since sometime early last week. His heart is been racing a little bit more he has been feeling dizzy over the weekend. He does not have any chest pain. No syncope. No shortness of breath. No cough. Related Data Previous Rx's ?Medication ?Instructions ?Recorded compress.stocking,knee,reg,med #2 ea 09/19/22 albuterol sulfate 90 mcg/actuation 2 puff inhalation Q6H PRN 01/14/24 aerosol inhaler shortness of breath or wheezing #8.5 grams apixaban 5 mg tablet 5 mg PO BID Atrial Fibrillation 04/07/24 #60 tabs atorvastatin 80 mg tablet 80 mg PO HS #90 tabs 04/07/24 diltiazem HCl 180 mg 180 mg PO DAILY #90 caps 04/07/24 capsule,extended release 24 hr gabapentin 300 mg capsule 300 mg PO QPM for neuropathy #90 04/07/24 caps potassium chloride 10 mEq 20 meq (2 x 10 mEq) PO DAILY 04/07/24 capsule,extended release Hypokalemia #180 caps valsartan 40 mg tablet 40 mg PO QDAY Hypertension #90 tabs 04/07/24 spironolactone 50 mg tablet 50 mg PO QDAY #90 tabs 06/23/24 furosemide 40 mg tablet 40 mg PO BID@0800,1400 Edema #60 07/15/24 tabs Allergies Allergy/AdvReac Type Severity Reaction Status Date / Time No Known Allergies Allergy Verified 09/14/24 13:52 [facility] Medical History (Updated 09/14/24 @ 21:17 by Ezequiel Perez MD) Edema ?R60.9 - Edema, unspecified (ICD-10) Hypertension ?I10 - Essential (primary) hypertension (ICD-10) Obstructive sleep apnea ?G47.33 - Obstructive sleep apnea (adult) (pediatric) (ICD-10) SOB (shortness of breath) ?R06.02 - Shortness of breath (ICD-10) Neuropathy ?G62.9 - Polyneuropathy, unspecified (ICD-10) Fatigue ?R53.83 - Other fatigue (ICD-10) Hypokalemia ?E87.6 - Hypokalemia (ICD-10) Echocardiogram abnormal ?R93.1 - Abnormal findings on diagnostic imaging of heart and coronary circulation (ICD-10) Peripheral vascular disease ?I73.9 - Peripheral vascular disease, unspecified (ICD-10) Atrial fibrillation ?I48.91 - Unspecified atrial fibrillation (ICD-10) Hypertrophic obstructive cardiomyopathy ?I42.1 - Obstructive hypertrophic cardiomyopathy (ICD-10) Hypertension (11/30/12) ?I10 - Essential (primary) hypertension (ICD-10) Surgical History S/P ablation of atrial fibrillation ?Z98.890 - Other specified postprocedural states (ICD-10) ?Z86.79 - Personal history of other diseases of the circulatory system (ICD-10) History of total right hip replacement ?Z96.641 - Presence of right artificial hip joint (ICD-10) History of appendectomy ?Z90.49 - Acquired absence of other specified parts of digestive tract (ICD-10) Social History (Updated 09/14/24 @ 21:07 by Ezequiel Perez MD) Narrative: Patient is a former smoker having quit about 17 years ago with a 33 pack-year history. History of alcohol use disorder and reports not drinking since April 2022. Code status is full. 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 What is your current living situation?: I presently have a place to live Problems where you live: no known problems Problems where you live details: n/a In the past 12 months, utilities in danger of being shut off: no In the past 12 mos, have been you worried that your food would run out before you had money to buy more?: never true In the past 12 mos, the food you bought just didn't last and you didn't have money to buy more?: never true Highest level of school completed/degree received: 12th grade, no diploma Smoking Status: Former smoker Do you use any of these nicotine containing products: None Second hand tobacco smoke exposure: No How often do you have a drink containing alcohol: never How often do you have six or more drinks on one occasion: Never AUDIT-C Alcohol total score: 0 Non-prescribed substance use: denies use Caffeine: Yes (1 can coke daily) How often does anyone, including family, friends and others, physically hurt you: never How often does anyone, including family, friends and others, insult or talk down to you: never How often does anyone, including family, friends and others, threaten you with harm: never How often does anyone, including family, friends and others, scream or curse at you: never Do you think of yourself as: straight/heterosexual Gender Identity: male service: No Exam Narrative: Exam Narrative: Constitutional: Appears well-developed and well-nourished. Heavyset. Alert. Very pleasant and Conversant. Non toxic. HENT: Head: Atraumatic. Nose: Nose normal. Mouth/Throat: Oral mucosa is clear and moist. no trismus. Pharynx normal. Eyes: Conjunctivae normal. EOM normal. Pupils equal, round, and reactive to light. No scleral icterus. Neck: Normal range of motion. Neck supple. No tracheal deviation present. Cardiovascular: Tachycardic, irregularly irregular rhythm. No gallop. No friction rub. No murmur heard. Symmetric radial artery pulses Pulmonary/Chest: Effort normal. No stridor. No respiratory distress. No wheezes. No rales. No rhonchi . No tenderness. Abdominal: Soft. Bowel sounds normal. No distension. No mass. No tenderness. No rebound. No guarding. No CVA tenderness. : He does have a lot of skin in the mons area because of his body habitus and also possibly some surrounding edema. Difficult to visualize thecal glans of his penis due to soft tissue around it. He does have fairly notable swelling affecting the scrotum, much worse on the right than on the left. Scrotum is slightly erythematous and indurated on the right. There is no palpable fluctuance. No crepitus or gas in the soft tissue. No black spot or sign of necrotizing infection or Yg's. Left hemiscrotum is nontender. Careful inspection of the skin on his mons, proximal thighs, skin folds of the groin crease, perineum, gluteal cleft, reveals no sign of redness or swelling extending beyond the scrotum. Musculoskeletal: RUE: Normal range of motion. No tenderness. No deformity LUE: Normal range of motion. No tenderness. No deformity RLE: Normal range of motion. No edema. No tenderness. No deformity LLE: Normal range of motion. No edema. No tenderness. No deformity Neurological: Alert and oriented to person, place, and time. Normal strength. CN II-VII intact. No sensory deficit. GCS eye subscore is 4. GCS verbal subscore is 5. GCS motor subscore is 6. Normal coordination Skin: Skin is warm and dry. No rash noted. No pallor. Normal capillary refill. Psychiatric: Normal mood. Normal affect. Const: Vital Signs, click to edit/add: Vital Signs - 24 hr 09/14/24 13:53 09/14/24 14:58 09/14/24 15:03 Temperature 98.6 F Pulse Rate 125 H Pulse Rate [Pulse Oximeter] 105 H Respiratory Rate 16 Blood Pressure 135/102 H Blood Pressure [Le ft Arm] Blood Pressure [Ri ght Upper Arm] 120/72 Pulse Oximetry 94 93 93 Oxygen Delivery Me thod Room Air 09/14/24 15:04 09/14/24 15:15 09/14/24 15:16 Temperature Pulse Rate 131 H 127 H 117 H Pulse Rate [Pulse Oximeter] Respiratory Rate Blood Pressure 113/73 Blood Pressure [Le ft Arm] Blood Pressure [Ri ght Upper Arm] Pulse Oximetry 92 94 94 Oxygen Delivery Me thod 09/14/24 15:30 09/14/24 15:31 09/14/24 15:32 Temperature Pulse Rate 101 H 113 H 105 H Pulse Rate [Pulse Oximeter] Respiratory Rate Blood Pressure 127/84 Blood Pressure [Le ft Arm] Blood Pressure [Ri ght Upper Arm] Pulse Oximetry 92 92 94 Oxygen Delivery Me thod 09/14/24 15:45 09/14/24 16:00 09/14/24 16:02 Temperature Pulse Rate 110 H 105 H 118 H Pulse Rate [Pulse Oximeter] Respiratory Rate Blood Pressure 128/104 H Blood Pressure [Le ft Arm] Blood Pressure [Ri ght Upper Arm] Pulse Oximetry 93 93 94 Oxygen Delivery Me thod 09/14/24 16:02 09/14/24 16:15 09/14/24 16:30 Temperature Pulse Rate 118 H 98 107 H Pulse Rate [Pulse Oximeter] Respiratory Rate Blood Pressure 128/104 H Blood Pressure [Le ft Arm] Blood Pressure [Ri ght Upper Arm] Pulse Oximetry 94 93 93 Oxygen Delivery Me thod 09/14/24 16:32 09/14/24 16:35 09/14/24 16:45 Temperature Pulse Rate 132 H 112 H 115 H Pulse Rate [Pulse Oximeter] Respiratory Rate Blood Pressure 87/62 L 105/79 Blood Pressure [Le ft Arm] Blood Pressure [Ri ght Upper Arm] Pulse Oximetry 93 93 93 Oxygen Delivery Me thod 09/14/24 17:15 Temperature 98.6 F Pulse Rate Pulse Rate [Pulse Oximeter] 122 H Respiratory Rate 22 Blood Pressure Blood Pressure [Le ft Arm] 123/71 Blood Pressure [Ri ght Upper Arm] Pulse Oximetry 96 Oxygen Delivery Me thod Room Air Course Vital Signs Vital signs: Initial Vital Signs Temperature 98.6 F 09/14/24 13:53 Temperature Source Temporal Artery Scan 09/14/24 13:53 Pulse Rate 105 H 09/14/24 13:53 Respiratory Rate 16 09/14/24 13:53 Blood Pressure 120/72 09/14/24 13:53 Blood Pressure Mean 88 09/14/24 13:53 Blood Pressure Position Sitting 09/14/24 13:53 Pulse Oximetry 94 09/14/24 13:53 Oxygen Delivery Method Room Air 09/14/24 13:53 Vital Signs Temperature 98.6 F 09/14/24 13:53 Pulse Rate 105 H 09/14/24 13:53 Respiratory Rate 16 09/14/24 13:53 Blood Pressure 120/72 09/14/24 13:53 Pulse Oximetry 94 09/14/24 13:53 Oxygen Delivery Method Room Air 09/14/24 13:53 Temperature 98.4 F 09/14/24 19:00 Pulse Rate 97 09/14/24 19:00 Respiratory Rate 24 09/14/24 20:34 Blood Pressure 110/91 H 09/14/24 19:00 Pulse Oximetry 95 09/14/24 20:34 Oxygen Delivery Method Room Air 09/14/24 20:34 Medications Administered Medications: Generic Name Dose Route Start Last Admin Trade Name Freq PRN Reason Stop Dose Admin Apixaban 5 mg 09/14/24 21:00 09/14/24 20:23 Apixaban 5 Mg Tablet PO 5 mg BID TONY Administration Atorvastatin Calcium 80 mg 09/14/24 21:00 09/14/24 20:22 Atorvastatin Calcium 40 Mg Tablet PO 80 mg HS TONY Administration Diltiazem HCl 120 mg 09/14/24 21:00 09/14/24 20:28 Diltiazem 120 Mg Cap.Er.24h PO 120 mg BID TONY Administration Gabapentin 300 mg 09/14/24 18:00 09/14/24 19:26 Gabapentin 300 Mg Capsule PO 300 mg QPM TONY Administration Hydromorphone HCl 0.5 mg 09/14/24 14:25 09/14/24 14:45 Hydromorphone 0.5 Mg/0.5 Ml Inj IVP 0.5 mg Q1H PRN Administration Pain Sodium Chloride 5 ml 09/14/24 21:00 09/14/24 20:24 Sodium Chloride 0.9 % (Flush) 10 Ml Syringe IVF 5 ml BID TONY Administration Discontinued Medications Generic Name Dose Route Start Last Admin Trade Name Freq PRN Reason Stop Dose Admin Diltiazem HCl 10 mg 09/14/24 15:03 09/14/24 15:13 Diltiazem 5 Mg/Ml Inj IVP 09/14/24 15:04 10 mg ONCE ONE Administration Diltiazem HCl 10 mg 09/14/24 15:05 09/14/24 16:52 Diltiazem 5 Mg/Ml Inj IVP 09/14/24 15:06 Not Given ONCE ONE Diltiazem HCl 60 mg 09/14/24 16:33 09/14/24 17:40 Diltiazem 30 Mg Tablet PO 09/14/24 16:34 60 mg ONCE ONE Administration Sodium Chloride 500 mls @ 500 mls/hr 09/14/24 15:05 09/14/24 16:06 0.9 % Sodium Chloride 500 Ml IV 09/14/24 16:04 Infused .Q1H ONE Infusion Ceftriaxone Sodium 1 gm/ 100 mls @ 200 mls/hr 09/14/24 16:00 09/14/24 16:58 Sodium Chloride IVPB 09/14/24 16:01 Infused ONCE ONE Infusion Sodium Chloride 500 mls @ 1,000 mls/hr 09/14/24 16:00 09/14/24 16:58 0.9 % Sodium Chloride 500 Ml IV 09/14/24 16:29 Infused .Q30M ONE Infusion Spironolactone 50 mg 09/14/24 18:00 09/14/24 19:26 Spironolactone 25 Mg Tablet PO 50 mg DAILY TONY Administration Valsartan 40 mg 09/14/24 18:25 09/14/24 20:23 Valsartan 80 Mg Tablet PO 40 mg DAILY TONY Administration Medical Decision Making [facility] Narrative Medical decision making narrative: Very pleasant 63-year-old gentleman returning to the ER today with worsening pain and swelling affecting his groin and right hemiscrotum as well as ongoing urinary symptoms. He has also been noticing some palpitations and some dizzy spells for the past couple of days. He was sent over from the primary clear clinic with concern. Primary care provider was concerned that with the swelling he might not be able to pass urine and might have urinary retention. However he is able to spontaneously void here in the ER and at this point does not require Emerson catheter. Clinical exam does show redness and swelling and tenderness of the right hemiscrotum. Differential here would include scrotal cellulitis, orchitis, testicular torsion, scrotal abscess, Yg's gangrene or other neck tries infection. There is no history of recent trauma. Scrotal ultrasound does reveal evidence for intact blood flow in both testicles but he does have hyperemia of the right testicle suggestive of over colitis/epididymitis. Also there is a small collection of some complex debris/fluid adjacent to the testicle. I discussed this with the radiologist by phone. They indicate that this is not an organized abscess or really indicative of a hematoma. This suspect it is probably reactive to the orchitis. It is very small and is not big enough to require drainage or large enough to place a percutaneous drain. Therefore plan will be to start the patient on intravenous antibiotics and monitor clinically. We will repeat ultrasound if he is better to make sure the fluid collection resolves and if he does not improve, he will need reimaging to look for possible expanding hematoma. He does have a worsening leukocytosis with a white count up to 20 (from 12). Fortunately his blood pressure is stable. Venous lactic is normal. He is mentating normally. I do think he has sepsis. Started on IV antibiotics. With a known/suspected source, we can put him directly on Rocephin and do not have to put him on more broad-spectrum antibiotics at this time. He also has a history of paroxysmal AFib. He is in AFib with RVR today. Heart rate was ranging in the 120s to 140s when he arrived. We treated this with IV saline 1 L as well as diltiazem for rate control. He received 2 doses of diltiazem 10 mg IV as well as 60 mg diltiazem oral for rate control here in the ER. He will require hospitalization for IV antibiotics, careful monitoring, rate control for his AFib. He is agreeable to be admitted here in [place]. At this point, since there was not a definitive surgical problem with his scrotum, does not require transfer to a hospital with Urology. Discussed with hospitalist, Dr. Perez, who graciously agrees to admit for IV antibiotics, fluids, medical management. Lab Data Labs: Lab Results 09/14/24 09/14/24 09/14/24 Range/Units 14:16 14:40 18:01 WBC 20.81 H (4.50-11.00) K/uL RBC 4.05 L (4.30-5.90) m/uL Hgb 12.3 L (13.5-17.5) gm/dL Hct 38.2 (37.0-53.0) % MCV 94 (80-100) fL MCH 30 (26-34) pg MCHC 32 (32-36) gm/dL RDW Coeff of Myles 14.5 (11.5-15.5) % Plt Count 158 (140-440) K/uL Neut % (Auto) 84.7 H (42.0-72.0) % Lymph % (Auto) 5.0 L (20-44) % [place] % (Auto) 7.6 (0.0-11.0) % Eos % (Auto) 0.0 (0.0-7.0) % Baso % (Auto) 0.0 (0.0-3.0) % Neut # (Auto) 17.60 H (1.7-7.0) K/uL Lymph # (Auto) 1.00 (0.90-2.90) K/uL [place] # (Auto) 1.60 H (0.00-0.90) K/UL Eos # (Auto) 0.00 (0.00-0.50) K/uL Baso # (Auto) 0.00 (0.00-0.30) K/uL Abs Immat Gran (auto) 0.60 H (0.00-0.30) K/uL Imm/Tot Granulo (auto) 2.7 % Sodium 132 L (135-149) mmol/L Potassium 3.8 (3.6-5.1) mmol/L Chloride 95 L (96-114) mmol/L Carbon Dioxide 25 (20-32) mmol/L Anion Gap 12 (7-15) mEq/L BUN 24 (7-30) mg/dL Creatinine 1.0 (0.5-1.5) mg/dL Estimated Creat Clear 64.92 Estimated GFR 84 ml/min Glucose 128 H (60-115) mg/dL Lactate 1.9 (0.5-1.9) mmol/L Calcium 8.7 (8.4-10.6) mg/dL Magnesium 2.3 (1.5-2.6) mg/dL C-Reactive Protein 25.9 H (0.5-1.0) mg/dL Urine Color Nyla A (Yellow) Urine Appearance Cloudy A (Clear) Urine pH 5.0 (5.0-8.5) Ur Specific [place] 1.020 (1.000-1.030) Urine Protein 1+ A (Negative) Urine Glucose (UA) Negative (Negative) Urine Ketones 1+ A (Negative) Urine Blood 3+ A (Negative) Urine Nitrite Negative (Negative) Urine Bilirubin 1+ A (Negative) Urine Urobilinogen 0.2 (0.2-1.0) Ur Leukocyte Esterase 1+ A (Negative) Urine RBC 10-25 A (0-2) Urine WBC 10-25 A (0-5) Ur Squamous Epith Cells Many A (None-Few) Urine Bacteria Few A (None) Coarse Granular Casts Moderate A (None) Lab Acknowledgement Test Added Imaging Data US Scrotum: Attestation: I have reviewed the pertinent imaging results. My impression: Discussed by phone with radiologist, Dr. Rinaldi. He indicates that the scrotal sac debris is actually a very small collection of material. It appears to be too small and is not really organized enough to suggest a scrotal abscess. Nothing that would need surgical drainage or would be large enough to put a drain into. He suspects is probably just reactive due to the inflammation of the orchitis. He would recommend repeat scrotal ultrasound after IV antibiotics to make sure it is getting better. Radiologist's impression: Findings: Both testicles are normal in size and echotexture. No masses. No suspicious calcifications. Arterial and venous color Doppler blood flow and spectral waveforms are present in both testicles. Asymmetric hypervascularity within the right testicle. Epididymis: Asymmetric hypervascularity of the right epididymis. Small right epididymal head cyst. Other: Debris within the superior right scrotal sac with loculated appearance. No sign of varicocele. Scrotal wall is unremarkable. Impression: 1. Asymmetric hypervascularity of the right testicle and epididymis, which could be consistent with orchitis/epididymitis. 2. Right scrotal sac debris with loculated appearance that could be secondary to infection. Blood products could also have this appearance if there is recent history of trauma. ECG Data Attestation: I personally reviewed and interpreted this ECG as follows: Interpretation: At approximately 3:00 p.m. I was notified by nurses the patient went into tachycardia and appears to have AFib with RVR. I asked them to get a 12 lead EKG. 1458 Atrial fibrillation with rapid ventricular response Rate: 138 SC: n of QRS axis: Normal axis. ST segment/T wave: Nonspecific changes but no significant ST segment elevation or depression. No STEMI QTc: 466 Discharge Plan Discharge Clinical Impression: Acute UTI, Acute orchitis, Sepsis, Atrial fibrillation with RVR Patient Disposition: Admitted As Observation
--- NOTE | 2024-09-14 14:25 | CRLHL7_ITS ---
For Patients: As a result of the Cures Act, medical imaging exams and procedure reports are released immediately into your electronic medical record. You may view this report before your referring provider. If you have questions, please contact your health care provider. Indication: Right testicular pain. Technique: Ultrasound of the scrotum and contents. Sonographic mathur-scale images were obtained with spectral and color Doppler waveform and spectral waveform analysis of the testicles. Comparison: None. Findings: Both testicles are normal in size and echotexture. No masses. No suspicious calcifications. Arterial and venous color Doppler blood flow and spectral waveforms are present in both testicles. Asymmetric hypervascularity within the right testicle. Epididymis: Asymmetric hypervascularity of the right epididymis. Small right epididymal head cyst. Other: Debris within the superior right scrotal sac with loculated appearance. No sign of varicocele. Scrotal wall is unremarkable. Impression: 1. Asymmetric hypervascularity of the right testicle and epididymis, which could be consistent with orchitis/epididymitis. 2. Right scrotal sac debris with loculated appearance that could be secondary to infection. Blood products could also have this appearance if there is recent history of trauma. Dictated by Tony Rinaldi MD @ 09/14/2024 3:48:58 PM (Electronically Signed)
--- OUTSIDE RECORDS SUMMARY | 2024-09-14 14:32 | XMS_ITS | Clinical Summary ---
Author Organization [facility] Address [place], [place] [address] Care Team Providers Care Cell Biologist Name Role Phone Patel Lugo MD Primary [...] T Respiratory Rate 16 2022 5:49 AM MONUMENT CARVER Oxygen Saturation 95% 05/05/2023 2:11 PM CDT [...] Comments Code Status Discussion: Other Care Teams Cell Biologist Relationship Specialty Start Date End Date Patel Lugo MD [address], [place] [id number] PCP - General 04/25/16
[2024-09-14] MEDS: HYDROmorphone 0.5 mg/0.5 ml inj IVP (14:45)
[2024-09-14 14:51] LABS: Appearance Urine Cloudy (Clear); Bilirubin Urine 1+ (Negative); Blood Urine 3+ (Negative); Color Urine Amber (Yellow); Glucose Urine Negative (Negative); Ketones Urine 1+ (Negative); Nitrite Urine Negative (Negative); Protein Urine 1+ (Negative); Urobilinogen Urine 0.2 (0.2-1.0)
[2024-09-14 14:52] LABS: Leukocyte Esterase Urine 1+ (Negative)
[2024-09-14 15:03] LABS: Lactate* 1.9 mmol/L (0.5-1.9)
[2024-09-14 15:04] LABS: Bacteria Urine Few; Coarse Granular Casts Urine Moderate; Squamous Epithelial Cell Urine Many (None-Few)
[2024-09-14 15:07] LABS: Hematocrit 38.2 % (37.0-53.0); Hemoglobin* 12.3 gm/dL (13.5-17.5); Immature Granulocytes Pct Auto 2.7 %; Mean Corpuscular HGB Conc 32 gm/dL (32-36); Mean Corpuscular Hemoglobin 30 pg (26-34); Mean Corpuscular Volume 94 fL (80-100); Monocytes Percent Auto 7.6 % (0.0-11.0); Neutrophils Percent Auto 84.7 % (42.0-72.0); Platelet Count* 158 K/uL (140-440); RDW Coefficient of Variation % 14.5 % (11.5-15.5); Red Blood Count 4.05 m/uL (4.30-5.90); White Blood Count* 20.81 K/uL (4.50-11.00)
[2024-09-14] MEDS: 0.9 % SODIUM CHLORIDE 500 ML 500 ML IV (15:12)
[2024-09-14] MEDS: dilTIAZem 5 MG/ML inj 10 MG IVP (15:13)
--- NOTE | 2024-09-14 15:18 | ED.NURSE ---
Prior to IV start and pain med spa manager, pt placed on pulse ox per standard of care. Noted pulse to be tachy and irregular. Placed on monitoring analyst and noted to be in rapid a-fib. Pt reports feeling some SOB and dizziness since his symptoms began and from when he was initially seen a few days ago. Obtained formal EKG and updated MD.
[2024-09-14 15:23] LABS: Slide Review Reflex No
[2024-09-14 15:24] LABS: Chloride* 95 mmol/L (96-114)
[2024-09-14 15:25] LABS: Potassium* 3.8 mmol/L (3.6-5.1); Sodium* 132 mmol/L (135-149)
[2024-09-14 15:27] LABS: Est. Creatinine Clearance* 64.92; Estimated Glomerular Filt Rate 84 ml/min
[2024-09-14 15:28] LABS: Anion Gap 12 mEq/L (7-15); Blood Urea Nitrogen* 24 mg/dL (7-30); Calcium* 8.7 mg/dL (8.4-10.6); Carbon Dioxide* 25 mmol/L (20-32); Glucose* 128 mg/dL (60-115)
[2024-09-14 16:00] LABS: C Reactive Protein* 25.9 mg/dL (0.5-1.0)
[2024-09-14] MEDS: 0.9 % SODIUM CHLORIDE 500 ML 500 ML 1000 ML IV (16:08)
[2024-09-14] MEDS: cefTRIAXone 1 GM in 0.9 % SODIUM CHLORIDE Mini-bag 100 ML IVPB (16:36)
--- NOTE | 2024-09-14 16:49 | ED.NURSE ---
Report to SATHYA Yu. Informed her that PO diltiazem not administered in ED. Pt to M/S w/ all belongings and on tele.
[2024-09-14] MEDS: dilTIAZem 30 MG TABLET 60 MG PO (17:40)
[2024-09-14 18:32] LABS: Magnesium* 2.3 mg/dL (1.5-2.6)
[2024-09-14] MEDS: SPIRONOLACTONE 25 MG TABLET 50 MG PO (19:26)
[2024-09-14] MEDS: GABAPENTIN 300 MG CAPSULE PO (19:26)
[2024-09-14] MEDS: ATORVASTATIN CALCIUM 40 MG TABLET 80 MG PO (20:22)
[2024-09-14] MEDS: VALSARTAN 80 MG TABLET 40 MG PO (20:23)
[2024-09-14] MEDS: APIXABAN 5 MG TABLET PO (20:23)
[2024-09-14] MEDS: SODIUM CHLORIDE 0.9 % (FLUSH) 10 ML SYRINGE 5 ML IVF (20:24)
[2024-09-14] MEDS: dilTIAZem 120 MG CAP.ER.24H PO (20:28)
--- NOTE | 2024-09-14 20:53 | P.IMHP_ITS ---
Hospitalist- H&P: HPI History of Present Illness Date Seen: 09/14/24 Chief complaint: Swelling testes, urinary retention Narrative: Ezequiel Buckner is a 63 year old male admitted to the hospital with 3 day history of hematuria followed by fever chills and painful swollen right testicle. Patient reports he was generally doing well up until 3 days ago, Friday afternoon. At that time he noticed that he had some hematuria. He was seen in the emergency department and diagnosed with a UTI and started on Macrobid. He was also advised to stop his Eliquis because of the bleeding. He held Eliquis for 2 days and resumed yesterday. His bleeding has stopped. He is on Eliquis for atrial fibrillation.. He had ablation in October 2022. He is currently in AFib with RVR. He has had no trauma to his scrotum. No previous history of urinary infections or urinary problems. Review of Systems Narrative: Prior to onset of hematuria he was generally feeling well. [facility] Medical History (Updated 09/14/24 @ 21:17 by Ezequiel Perez MD) Edema ?R60.9 - Edema, unspecified (ICD-10) Hypertension ?I10 - Essential (primary) hypertension (ICD-10) Obstructive sleep apnea ?G47.33 - Obstructive sleep apnea (adult) (pediatric) (ICD-10) SOB (shortness of breath) ?R06.02 - Shortness of breath (ICD-10) Neuropathy ?G62.9 - Polyneuropathy, unspecified (ICD-10) Fatigue ?R53.83 - Other fatigue (ICD-10) Hypokalemia ?E87.6 - Hypokalemia (ICD-10) Echocardiogram abnormal ?R93.1 - Abnormal findings on diagnostic imaging of heart and coronary circulation (ICD-10) Peripheral vascular disease ?I73.9 - Peripheral vascular disease, unspecified (ICD-10) Atrial fibrillation ?I48.91 - Unspecified atrial fibrillation (ICD-10) Hypertrophic obstructive cardiomyopathy ?I42.1 - Obstructive hypertrophic cardiomyopathy (ICD-10) Hypertension (11/30/12) ?I10 - Essential (primary) hypertension (ICD-10) Surgical History S/P ablation of atrial fibrillation ?Z98.890 - Other specified postprocedural states (ICD-10) ?Z86.79 - Personal history of other diseases of the circulatory system (ICD- 10) History of total right hip replacement ?Z96.641 - Presence of right artificial hip joint (ICD-10) History of appendectomy ?Z90.49 - Acquired absence of other specified parts of digestive tract (ICD- 10) Social History (Updated 09/14/24 @ 21:07 by Ezequiel Perez MD) Narrative: Patient is a former smoker having quit about 17 years ago with a 33 pack-year history. History of alcohol use disorder and reports not drinking since April 2022. Code status is full. is healthcare power of corporate attorney. What is your current living situation?: I presently have a place to live Problems where you live: no known problems Problems where you live details: n/a In the past 12 months, utilities in danger of being shut off: no In the past 12 mos, have been you worried that your food would run out before you had money to buy more?: never true In the past 12 mos, the food you bought just didn't last and you didn't have money to buy more?: never true Highest level of school completed/degree received: 12th grade, no diploma Smoking Status: Former smoker Do you use any of these nicotine containing products: None Second hand tobacco smoke exposure: No How often do you have a drink containing alcohol: never How often do you have six or more drinks on one occasion: Never AUDIT-C Alcohol total score: 0 Non-prescribed substance use: denies use Caffeine: Yes (1 can coke daily) How often does anyone, including family, friends and others, physically hurt you : never How often does anyone, including family, friends and others, insult or talk down to you: never How often does anyone, including family, friends and others, threaten you with harm: never How often does anyone, including family, friends and others, scream or curse at you: never Do you think of yourself as: straight/heterosexual Gender Identity: male service: No Meds Home Medications and Allergies Allergies Allergy/AdvReac Type Severity Reaction Status Date / Time No Known Allergies Allergy Verified 09/14/24 13:52 Exam Narrative: Exam Narrative: He is alert and appears in no distress. Oropharynx with small airway. Neck is supple without mass or adenopathy. Respirations are clear to auscultation. Cardiovascular: S1, S2, irregularly irregular. No murmur gallop or rub. A bdomen: Bowel sounds active. Abdomen is soft. He has mild suprapubic tenderness. No mass. No peritonitis. External genitalia notable for fairly severely swollen warm and tender right testicle. Extremities with trace edema. Intact pedal pulses. Const: Vital Signs, click to edit/add: Vital Signs - 24 hr 09/14/24 13:53 09/14/24 14:58 09/14/24 15:03 Temperature 98.6 F Pulse Rate 125 H Pulse Rate [Pulse Oximeter] 105 H Respiratory Rate 16 Blood Pressure 135/102 H Blood Pressure [Le ft Arm] Blood Pressure [Ri ght Upper Arm] 120/72 Pulse Oximetry 94 93 93 Oxygen Delivery Me thod Room Air 09/14/24 15:04 09/14/24 15:15 09/14/24 15:16 Temperature Pulse Rate 131 H 127 H 117 H Pulse Rate [Pulse Oximeter] Respiratory Rate Blood Pressure 113/73 Blood Pressure [Le ft Arm] Blood Pressure [Ri ght Upper Arm] Pulse Oximetry 92 94 94 Oxygen Delivery Me thod 09/14/24 15:30 09/14/24 15:31 09/14/24 15:32 Temperature Pulse Rate 101 H 113 H 105 H Pulse Rate [Pulse Oximeter] Respiratory Rate Blood Pressure 127/84 Blood Pressure [Le ft Arm] Blood Pressure [Ri ght Upper Arm] Pulse Oximetry 92 92 94 Oxygen Delivery Me thod 09/14/24 15:45 09/14/24 16:00 09/14/24 16:02 Temperature Pulse Rate 110 H 105 H 118 H Pulse Rate [Pulse Oximeter] Respiratory Rate Blood Pressure 128/104 H Blood Pressure [Le ft Arm] Blood Pressure [Ri ght Upper Arm] Pulse Oximetry 93 93 94 Oxygen Delivery Me thod 09/14/24 16:02 09/14/24 16:15 09/14/24 16:30 Temperature Pulse Rate 118 H 98 107 H Pulse Rate [Pulse Oximeter] Respiratory Rate Blood Pressure 128/104 H Blood Pressure [Le ft Arm] Blood Pressure [Ri ght Upper Arm] Pulse Oximetry 94 93 93 Oxygen Delivery Me thod 09/14/24 16:32 09/14/24 16:35 09/14/24 16:45 Temperature Pulse Rate 132 H 112 H 115 H Pulse Rate [Pulse Oximeter] Respiratory Rate Blood Pressure 87/62 L 105/79 Blood Pressure [Le ft Arm] Blood Pressure [Ri ght Upper Arm] Pulse Oximetry 93 93 93 Oxygen Delivery Me thod 09/14/24 17:15 09/14/24 19:00 09/14/24 20:34 Temperature 98.6 F 98.4 F Pulse Rate Pulse Rate [Pulse Oximeter] 122 H 97 Respiratory Rate 22 22 24 Blood Pressure Blood Pressure [Le ft Arm] 123/71 110/91 H Blood Pressure [Ri ght Upper Arm] Pulse Oximetry 96 95 95 Oxygen Delivery Me thod Room Air Room Air Room Air Documenting provider has reviewed patient's vital signs: yes Hospitalist - H&P: Result Labs Labs: Short CBC 09/14/24 Range/Units 14:40 WBC 20.81 H (4.50-11.00) K/uL Hgb 12.3 L (13.5-17.5) gm/dL Hct 38.2 (37.0-53.0) % Plt Count 158 (140-440) K/uL BMP 09/14/24 14:40 Sodium 132 L Potassium 3.8 Chloride 95 L Carbon Dioxide 25 BUN 24 Creatinine 1.0 Glucose 128 H Calcium 8.7 Urine 09/14/24 Range/Units 14:16 Urine Color Nyla A (Yellow) Urine Appearance Cloudy A (Clear) Urine pH 5.0 (5.0-8.5) Ur Specific [place] 1.020 (1.000-1.030) Urine Protein 1+ A (Negative) Urine Glucose (UA) Negative (Negative) Assessment and Plan Assessment and plan (1) Sepsis: Problem comment: Hypotension, 87/62, tachycardia,132, leukocytosis, 20.8, CRP 25.9. Likely due to orchitis and urinary tract infection Status: Acute (2) Atrial fibrillation with RVR: Problem comment: Unclear if he is in persistent AFib or not. Currently in AFib with RVR. RVR may be due to sepsis. Off anticoagulation for 2 days. Resuscitate and rate control Status: Acute (3) Acute orchitis: Problem comment: Likely the cause of hematuria, right scrotal pain and fever. Urine culture from 3 days ago showed pansensitive E coli. On ceftriaxone Status: Acute (4) Hematuria: Problem comment: Due to orchitis and anticoagulation. Gross hematuria has resolved Status: Acute (5) Morbid obesity with body mass index (BMI) of 40.0 or higher: Status: Acute (6) Heart failure with preserved ejection fraction: Problem comment: EF 65-70% on 10/23/22 Status: Suspected (7) Obstructive sleep apnea: Problem comment: On CPAP at home Status: Acute (8) Hypertension: Problem comment: Hold diuretics, furosemide and spironolactone and valsartan until blood pressure improves Status: Acute (9) Edema: Problem comment: Hold diuretics. Caution with fluids as patient is at risk for heart failure Status: Acute Plan Patient admitted to the hospital for sepsis associated with acute orchitis and AFib with RVR. Will stabilize cardiovascular status, treated with antibiotics, rate control AFib. Total Time Spent Total Time Spent: Total time spent today is 80 minutes in review of records, coordination of care and discussing with patient and and other providers management of orchitis and sepsis and AFib with RVR
--- NOTE | 2024-09-14 22:58 | PC.NURSE ---
Shift Note: Pt friendly and cooperative, able to verbalize his needs. HR initially quite tachy, as high 150 BPM. PO diltiazem given and HR now in the 70's. RR=24, pt denies any dyspnea. Denies pain at rest, but rates it 8/10 in his scrotum with palpation or movement. Sling made from a towel used to support scrotum with ice pack in place. Pt states this has helped immensely. Moves well independently throughout his room. tolerating regular diet without difficulty. Filament Coil Winder encouraged pt to increase PO intake of water/fluids. Pt is sipping water at this time. Family brought in home CPAP machine for pt to use at .
[2024-09-15] VITALS (10 sets, daily range): BP systolic 95–126; BP diastolic 56–77; PULSE 79–130; RESP 18–22; TEMP 36.3–37.3; O2SAT 92–95
[2024-09-15 06:44] LABS: Basophils Percent Auto 0.1 % (0.0-3.0); Eosinophils Percent Auto 0.5 % (0.0-7.0); Hematocrit 34.4 % (37.0-53.0); Hemoglobin* 11.1 gm/dL (13.5-17.5); Immature Granulocytes Pct Auto 0.3 %; Lymphocytes Percent Auto 5.9 % (20-44); Mean Corpuscular HGB Conc 32 gm/dL (32-36); Mean Corpuscular Hemoglobin 31 pg (26-34); Mean Corpuscular Volume 95 fL (80-100); Monocytes Percent Auto 8.3 % (0.0-11.0); Neutrophils Percent Auto 84.9 % (42.0-72.0); Platelet Count* 142 K/uL (140-440); Red Blood Count 3.62 m/uL (4.30-5.90); White Blood Count* 13.68 K/uL (4.50-11.00)
[2024-09-15 06:57] LABS: Slide Review Reflex No
[2024-09-15 07:00] LABS: Chloride* 97 mmol/L (96-114); Potassium* 3.3 mmol/L (3.6-5.1); Sodium* 131 mmol/L (135-149)
[2024-09-15 07:03] LABS: Creatinine* 0.9 mg/dL (0.5-1.5); Est. Creatinine Clearance* 64.92; Estimated Glomerular Filt Rate 95 ml/min
[2024-09-15 07:04] LABS: Anion Gap 7 mEq/L (7-15); Blood Urea Nitrogen* 28 mg/dL (7-30); Carbon Dioxide* 27 mmol/L (20-32); Glucose* 120 mg/dL (60-115)
[2024-09-15 07:05] LABS: Calcium* 7.9 mg/dL (8.4-10.6)
[2024-09-15 07:19] LABS: C Reactive Protein* 22.9 mg/dL (0.5-1.0)
--- NOTE | 2024-09-15 07:53 | PC.NURSE ---
Pt alert and oriented x3. No blood in urine, Afebrile. Pt denies pain, chest pain, SOB, and N/V. Pt is up SBA, voiding, and tolerating a regular diet. ?
[2024-09-15] MEDS: POTASSIUM BICARB 25 MEQ EFFERVESCENT TAB PO ×3 (08:40→20:05)
[2024-09-15] MEDS: SODIUM CHLORIDE 0.9 % (FLUSH) 10 ML SYRINGE 5 ML IVF ×2 (08:40→20:52)
[2024-09-15] MEDS: dilTIAZem 120 MG CAP.ER.24H PO ×2 (08:40→20:52)
[2024-09-15] MEDS: POTASSIUM CHLORIDE 10 MEQ CAPSULE ER 20 MEQ PO (08:40)
[2024-09-15] MEDS: cefTRIAXone 1 GM in 0.9 % SODIUM CHLORIDE Mini-bag 100 ML IVPB (08:41)
[2024-09-15] MEDS: APIXABAN 5 MG TABLET PO ×2 (08:41→20:52)
[2024-09-15] MEDS: dilTIAZem 30 MG TABLET PO (10:48)
[2024-09-15] MEDS: OXYCODONE 5 MG TABLET PO ×2 (12:04→22:06)
--- NOTE | 2024-09-15 12:19 | PM.IMPN1 ---
Progress Note: A&P Assessment and plan (1) Sepsis: Problem details: Resolved: Hypotension resolved, remains tachycardia in atrial fibrillation, leukocytosis improving, CRP improving. Likely due to orchitis and urinary tract infection Status: Acute (2) Atrial fibrillation with RVR: Problem details: - RVR likely due to sepsis. Off anticoagulation for 2 days prior to admission, he has been on Eliquis since admission. - had been started on increased diltiazem yesterday, given both IV and or extra oral doses and his usual diltiazem was increased and split in half to b.i.d.. Despite that he was still in RVR this morning for which I tried an extra dose of oral short-acting diltiazem without affect. I gave 1 IV dose of metoprolol with good affect and have started oral metoprolol scheduled with hold parameters. Will check an echocardiogram tomorrow as patient has not had one for 2 years. Status: Acute (3) Acute orchitis: Problem details: - 09/14 Likely the cause of hematuria, right scrotal pain and fever. Urine culture from 3 days ago showed pansensitive E coli. On ceftriaxone - 09/15 Some improvement overnight. Reviewed US scrotum done in ER yesterday (results above). May benefit from repeat US tomorrow to see if there are fluid collections or expanding hematoma. Continue ceftriaxone Status: Acute (4) Hematuria: Problem details: Due to orchitis and anticoagulation. Gross hematuria has resolved Status: Acute (5) Morbid obesity with body mass index (BMI) of 40.0 or higher: Status: Chronic (6) Heart failure with preserved ejection fraction: Problem details: EF 65-70% on 10/23/22 Status: Suspected (7) Obstructive sleep apnea: Problem details: On CPAP at home Status: Chronic (8) Hypertension: Problem details: Continue to hold diuretics, furosemide and spironolactone and valsartan until blood pressure improves Status: Chronic (9) Hypokalemia: Problem details: - mild, asymptomatic, patient is off his usual spironolactone and other diuretics. Will give oral replacement today. Recheck in the morning Status: Acute Subjective Date Seen: 09/15/24 Interval history: Delgado feels about the same as yesterday. He has some bilateral low back/buttock pain today. He feels a bit lightheaded. Denies CP or SOB. Exam Narrative: Exam Narrative: General: No acute distress. Awake, alert, oriented x3. No pallor. No jaundice. Oropharynx: Clear. Mucous membranes moist. Cardiovascular: Tachycardic, irregularly irregular. No murmurs, gallops, or rubs. Respiratory: Clear to auscultation bilaterally. No wheezes or crackles. Abdomen: Bowel sounds present. Soft, nondistended, nontender. Back: No deformities. No erythema or induration. Tender over both SI joints, this reproduces his back pain. Genitourinary: Swollen, tender right testicle with calor, no fluctuance, no abrasions, ulcerations or blisters. Extremities: Trace ankle edema. Const: Vital Signs, click to edit/add: Vital Signs - 24 hr 09/14/24 13:53 09/14/24 14:58 09/14/24 15:03 Temperature 98.6 F Pulse Rate 125 H Pulse Rate [Pulse Oximeter] 105 H Respiratory Rate 16 Blood Pressure 135/102 H Blood Pressure [Le ft Arm] Blood Pressure [Ri ght Upper Arm] 120/72 Pulse Oximetry 94 93 93 Oxygen Delivery Me thod Room Air 09/14/24 15:04 09/14/24 15:15 09/14/24 15:16 Temperature Pulse Rate 131 H 127 H 117 H Pulse Rate [Pulse Oximeter] Respiratory Rate Blood Pressure 113/73 Blood Pressure [Le ft Arm] Blood Pressure [Ri ght Upper Arm] Pulse Oximetry 92 94 94 Oxygen Delivery Me thod 09/14/24 15:30 09/14/24 15:31 09/14/24 15:32 Temperature Pulse Rate 101 H 113 H 105 H Pulse Rate [Pulse Oximeter] Respiratory Rate Blood Pressure 127/84 Blood Pressure [Le ft Arm] Blood Pressure [Ri ght Upper Arm] Pulse Oximetry 92 92 94 Oxygen Delivery Me thod 09/14/24 15:45 09/14/24 16:00 09/14/24 16:02 Temperature Pulse Rate 110 H 105 H 118 H Pulse Rate [Pulse Oximeter] Respiratory Rate Blood Pressure 128/104 H Blood Pressure [Le ft Arm] Blood Pressure [Ri ght Upper Arm] Pulse Oximetry 93 93 94 Oxygen Delivery Me thod 09/14/24 16:02 09/14/24 16:15 09/14/24 16:30 Temperature Pulse Rate 118 H 98 107 H Pulse Rate [Pulse Oximeter] Respiratory Rate Blood Pressure 128/104 H Blood Pressure [Le ft Arm] Blood Pressure [Ri ght Upper Arm] Pulse Oximetry 94 93 93 Oxygen Delivery Me thod 09/14/24 16:32 09/14/24 16:35 09/14/24 16:45 Temperature Pulse Rate 132 H 112 H 115 H Pulse Rate [Pulse Oximeter] Respiratory Rate Blood Pressure 87/62 L 105/79 Blood Pressure [Le ft Arm] Blood Pressure [Ri ght Upper Arm] Pulse Oximetry 93 93 93 Oxygen Delivery Me thod 09/14/24 17:15 09/14/24 19:00 09/14/24 20:34 Temperature 98.6 F 98.4 F Pulse Rate Pulse Rate [Pulse Oximeter] 122 H 97 Respiratory Rate 22 22 24 Blood Pressure Blood Pressure [Le ft Arm] 123/71 110/91 H Blood Pressure [Ri ght Upper Arm] Pulse Oximetry 96 95 95 Oxygen Delivery Me thod Room Air Room Air Room Air 09/14/24 23:37 09/14/24 23:37 09/14/24 23:37 Temperature 98.0 F Pulse Rate 83 Pulse Rate [Pulse Oximeter] 91 91 Respiratory Rate 20 Blood Pressure Blood Pressure [Le ft Arm] 107/65 Blood Pressure [Ri ght Upper Arm] Pulse Oximetry 94 Oxygen Delivery Me thod Room Air 09/15/24 04:16 09/15/24 07:30 09/15/24 08:28 Temperature 97.9 F 99.0 F Pulse Rate 87 Pulse Rate [Pulse Oximeter] 79 110 H Respiratory Rate 18 18 Blood Pressure Blood Pressure [Le ft Arm] 122/69 115/77 Blood Pressure [Ri ght Upper Arm] Pulse Oximetry 95 94 Oxygen Delivery Me thod CPAP Room Air 09/15/24 09:46 09/15/24 11:33 Temperature 97.4 F L Pulse Rate Pulse Rate [Pulse Oximeter] 110 H 130 H Respiratory Rate 18 18 Blood Pressure Blood Pressure [Le ft Arm] 95/64 Blood Pressure [Ri ght Upper Arm] Pulse Oximetry 95 Oxygen Delivery Me thod Room Air Labs Labs: Laboratory Results - last 24 hr 09/14/24 09/14/24 09/14/24 14:16 14:40 18:01 WBC 20.81 H RBC 4.05 L Hgb 12.3 L Hct 38.2 MCV 94 MCH 30 MCHC 32 RDW Coeff of Myles 14.5 Plt Count 158 Neut % (Auto) 84.7 H Lymph % (Auto) 5.0 L [place] % (Auto) 7.6 Eos % (Auto) 0.0 Baso % (Auto) 0.0 Neut # (Auto) 17.60 H Lymph # (Auto) 1.00 [place] # (Auto) 1.60 H Eos # (Auto) 0.00 Baso # (Auto) 0.00 Abs Immat Gran (auto) 0.60 H Imm/Tot Granulo (auto) 2.7 Sodium 132 L Potassium 3.8 Chloride 95 L Carbon Dioxide 25 Anion Gap 12 BUN 24 Creatinine 1.0 Estimated Creat Clear 64.92 Estimated GFR 84 Glucose 128 H Lactate 1.9 Calcium 8.7 Magnesium 2.3 C-Reactive Protein 25.9 H Urine Color Nyla A Urine Appearance Cloudy A Urine pH 5.0 Ur Specific [place] 1.020 Urine Protein 1+ A Urine Glucose (UA) Negative Urine Ketones 1+ A Urine Blood 3+ A Urine Nitrite Negative Urine Bilirubin 1+ A Urine Urobilinogen 0.2 Ur Leukocyte Esterase 1+ A Urine RBC 10-25 A Urine WBC 10-25 A Ur Squamous Epith Cells Many A Urine Bacteria Few A Coarse Granular Casts Moderate A Lab Acknowledgement Test Added 09/15/24 06:11 WBC 13.68 H RBC 3.62 L Hgb 11.1 L Hct 34.4 L MCV 95 MCH 31 MCHC 32 RDW Coeff of Myles 15.0 Plt Count 142 Neut % (Auto) 84.9 H Lymph % (Auto) 5.9 L [place] % (Auto) 8.3 Eos % (Auto) 0.5 Baso % (Auto) 0.1 Neut # (Auto) 11.60 H Lymph # (Auto) 0.80 L [place] # (Auto) 1.10 H Eos # (Auto) 0.10 Baso # (Auto) 0.00 Abs Immat Gran (auto) 0.00 Imm/Tot Granulo (auto) 0.3 Sodium 131 L Potassium 3.3 L Chloride 97 Carbon Dioxide 27 Anion Gap 7 BUN 28 Creatinine 0.9 Estimated Creat Clear 64.92 Estimated GFR 95 Glucose 120 H Lactate Calcium 7.9 L Magnesium C-Reactive Protein 22.9 H Urine Color Urine Appearance Urine pH Ur Specific [place] Urine Protein Urine Glucose (UA) Urine Ketones Urine Blood Urine Nitrite Urine Bilirubin Urine Urobilinogen Ur Leukocyte Esterase Urine RBC Urine WBC Ur Squamous Epith Cells Urine Bacteria Coarse Granular Casts Lab Acknowledgement Ordering Physician: Johan Gustafson M.D. Date of Service: 09/14/24 Procedure(s): US scrotum Accession Number(s): [id number] cc: Johan Gustafson M.D.; Patel Lugo M.D.~ For Patients: As a result of the Cures Act, medical imaging exams and procedure reports are released immediately into your electronic medical record. You may view this report before your referring provider. If you have questions, please contact your health care provider. Indication: Right testicular pain. Technique: Ultrasound of the scrotum and contents. Sonographic mathur-scale images were obtained with spectral and color Doppler waveform and spectral waveform analysis of the testicles. Comparison: None. Findings: Both testicles are normal in size and echotexture. No masses. No suspicious calcifications. Arterial and venous color Doppler blood flow and spectral waveforms are present in both testicles. Asymmetric hypervascularity within the right testicle. Epididymis: Asymmetric hypervascularity of the right epididymis. Small right epididymal head cyst. Other: Debris within the superior right scrotal sac with loculated appearance. No sign of varicocele. Scrotal wall is unremarkable. Impression: 1. Asymmetric hypervascularity of the right testicle and epididymis, which could be consistent with orchitis/epididymitis. 2. Right scrotal sac debris with loculated appearance that could be secondary to infection. Blood products could also have this appearance if there is recent history of trauma. Dictated by Tony Rinaldi MD @ 09/14/2024 3:48:58 PM (Electronically Signed)
[2024-09-15] MEDS: METOPROLOL TARTRATE 1 MG/ML inj 5 MG IVP (12:45)
[2024-09-15] MEDS: METOPROLOL TARTRATE 25 MG TABLET PO ×3 (13:18→20:52)
[2024-09-15] MEDS: ATORVASTATIN CALCIUM 40 MG TABLET 80 MG PO (20:52)
[2024-09-15] MEDS: GABAPENTIN 300 MG CAPSULE PO (20:52)
[2024-09-16] VITALS (9 sets, daily range): BP systolic 106–138; BP diastolic 65–80; PULSE 66–89; RESP 16–22; TEMP 36.1–37.1; O2SAT 92–97
[2024-09-16] MEDS: METOPROLOL TARTRATE 25 MG TABLET PO ×6 (01:51→21:40)
--- NOTE | 2024-09-16 06:34 | PC.NURSE ---
Shift note:Pt continue to have redness and swelling to the scrotum and penis. Alert and oriented. SBA to BR. Pt has been using CPAP throughout the shift. No fever recorded.
[2024-09-16 07:29] LABS: Basophils Absolute Auto 0.01 K/uL (0.00-0.30); Basophils Percent Auto 0.1 % (0.0-3.0); Eosinophils Absolute Auto 0.13 K/uL (0.00-0.50); Eosinophils Percent Auto 1.3 % (0.0-7.0); Hematocrit 33.9 % (37.0-53.0); Hemoglobin* 11.1 gm/dL (13.5-17.5); Immature Granulocytes Abs Auto 0.03 K/uL (0.00-0.30); Immature Granulocytes Pct Auto 0.3 %; Lymphocytes Percent Auto 7.8 % (20-44); Mean Corpuscular HGB Conc 33 gm/dL (32-36); Mean Corpuscular Hemoglobin 31 pg (26-34); Mean Corpuscular Volume 94 fL (80-100); Monocytes Percent Auto 8.4 % (0.0-11.0); Neutrophils Percent Auto 82.1 % (42.0-72.0); Platelet Count* 147 K/uL (140-440); RDW Coefficient of Variation % 14.9 % (11.5-15.5); Red Blood Count 3.59 m/uL (4.30-5.90); White Blood Count* 10.27 K/uL (4.50-11.00)
[2024-09-16 07:30] LABS: Slide Review Reflex No
[2024-09-16 07:41] LABS: Chloride* 96 mmol/L (96-114)
[2024-09-16 07:42] LABS: Potassium* 3.7 mmol/L (3.6-5.1); Sodium* 129 mmol/L (135-149)
[2024-09-16 07:44] LABS: Creatinine* 0.7 mg/dL (0.5-1.5); Est. Creatinine Clearance* 64.92; Estimated Glomerular Filt Rate 103 ml/min
[2024-09-16 07:45] LABS: Anion Gap 7 mEq/L (7-15); Blood Urea Nitrogen* 23 mg/dL (7-30); Carbon Dioxide* 26 mmol/L (20-32)
[2024-09-16 07:46] LABS: Glucose* 116 mg/dL (60-115)
[2024-09-16 08:02] LABS: C Reactive Protein* 17.8 mg/dL (0.5-1.0)
[2024-09-16] MEDS: POTASSIUM CHLORIDE 10 MEQ CAPSULE ER 20 MEQ PO (08:52)
[2024-09-16] MEDS: OXYCODONE 5 MG TABLET PO ×3 (08:52→21:41)
[2024-09-16] MEDS: dilTIAZem 120 MG CAP.ER.24H PO ×2 (08:52→21:40)
[2024-09-16] MEDS: APIXABAN 5 MG TABLET PO ×2 (08:52→21:41)
[2024-09-16] MEDS: cefTRIAXone 1 GM in 0.9 % SODIUM CHLORIDE Mini-bag 100 ML IVPB (08:53)
[2024-09-16] MEDS: SODIUM CHLORIDE 0.9 % (FLUSH) 10 ML SYRINGE 5 ML IVF ×2 (10:48→21:44)
--- NOTE | 2024-09-16 12:51 | PM.IMPN1 ---
Progress Note: A&P Assessment and plan (1) Sepsis: Problem details: Resolved: Resolved Hypotension resolved tachycardia. leukocytosis improving, CRP improving. Likely due to orchitis and urinary tract infection Status: Acute (2) Acute orchitis: Problem details: - 09/14 Likely the cause of hematuria, right scrotal pain and fever. Urine culture from 3 days ago showed pansensitive E coli. On ceftriaxone - 09/15 Some improvement overnight. Reviewed US scrotum done in ER yesterday (results above). May benefit from repeat US tomorrow to see if there are fluid collections or expanding hematoma. - Continue ceftriaxone -he ordered repeat scrotal ultrasound to rule out accumulation of fluids or abscess. Status: Acute (3) Atrial fibrillation with RVR: Problem details: - RVR likely due to sepsis. Off anticoagulation for 2 days prior to admission, he has been on Eliquis since admission. - had been started on increased diltiazem yesterday, given both IV and or extra oral doses and his usual diltiazem was increased and split in half to b.i.d.. Despite that he was still in RVR this morning for which I tried an extra dose of oral short-acting diltiazem without affect. I gave 1 IV dose of metoprolol with good affect and have started oral metoprolol scheduled with hold parameters. -echocardiogram today as patient has not had one for 2 years, unremarkable for preliminary report . Status: Resolved (4) Hematuria: Problem details: Due to orchitis and anticoagulation. Gross hematuria has resolved Status: Acute (5) Morbid obesity with body mass index (BMI) of 40.0 or higher: Status: Chronic (6) Heart failure with preserved ejection fraction: Problem details: EF 65-70% on 10/23/22 Status: Suspected (7) Obstructive sleep apnea: Problem details: On CPAP at home Status: Chronic (8) Hypertension: Problem details: Continue to hold diuretics, furosemide and spironolactone and valsartan until blood pressure improves Status: Chronic (9) Hypokalemia: Problem details: - mild, asymptomatic, patient is off his usual spironolactone and other diuretics. Will give oral replacement today. Recheck in the morning Status: Acute Time Spent With Patient Total time spent: Today I spent 50 minutes seeing the patient, reviewing Expanse and EPIC notes/diagnostics, discussing the care plan with our care time that includes social work, PT/OT, pharmacy, RT, senior care and documenting my impressions and plan in the medical record. Subjective Date Seen: 09/16/24 Interval history: Patient seen and examined this morning. Delgado feels about the same as yesterday with the testicle but he has improved low back pain which seems unrelated to his orchitis. Exam Narrative: Exam Narrative: General: No acute distress. Cardiovascular: NL S1 S2. No murmurs, gallops, or rubs. Respiratory: Clear to auscultation bilaterally. No wheezes or crackles. Abdomen: Bowel sounds present. Soft, obese, nontender. Genitourinary: Swollen, tender right testicle with redness, relatively hard. Neuro: Awake, alert, oriented x3. NL speech Const: Vital Signs, click to edit/add: Vital Signs - 24 hr 09/15/24 15:28 09/15/24 15:28 09/15/24 15:48 Temperature 99.2 F Pulse Rate 83 Pulse Rate [Pulse Oximeter] 98 98 Respiratory Rate 18 18 Blood Pressure [Le ft Arm] 112/56 L Pulse Oximetry 95 Oxygen Delivery Me thod Room Air 09/15/24 19:00 09/15/24 23:00 09/15/24 23:00 Temperature 98.6 F 98.6 F Pulse Rate Pulse Rate [Pulse Oximeter] 97 79 79 Respiratory Rate 22 22 22 Blood Pressure [Le ft Arm] 117/68 116/69 Pulse Oximetry 95 92 Oxygen Delivery Me thod Room Air CPAP 09/15/24 23:00 09/16/24 01:54 09/16/24 08:18 Temperature 97.9 F 98.7 F Pulse Rate 84 Pulse Rate [Pulse Oximeter] 79 79 Respiratory Rate 22 20 Blood Pressure [Le ft Arm] 125/78 138/78 Pulse Oximetry 92 96 Oxygen Delivery Me thod CPAP Room Air 09/16/24 10:31 09/16/24 10:41 09/16/24 12:12 Temperature 98.1 F Pulse Rate 85 Pulse Rate [Pulse Oximeter] 79 77 Respiratory Rate 20 18 Blood Pressure [Le ft Arm] 106/80 Pulse Oximetry 96 Oxygen Delivery Me thod Room Air Labs Labs: Laboratory Results - last 24 hr 09/16/24 06:57 WBC 10.27 RBC 3.59 L Hgb 11.1 L Hct 33.9 L MCV 94 MCH 31 MCHC 33 RDW Coeff of Myles 14.9 Plt Count 147 Neut % (Auto) 82.1 H Lymph % (Auto) 7.8 L [place] % (Auto) 8.4 Eos % (Auto) 1.3 Baso % (Auto) 0.1 Neut # (Auto) 8.40 H Lymph # (Auto) 0.80 L [place] # (Auto) 0.90 Eos # (Auto) 0.13 Baso # (Auto) 0.01 Abs Immat Gran (auto) 0.03 Imm/Tot Granulo (auto) 0.3 Sodium 129 L Potassium 3.7 Chloride 96 Carbon Dioxide 26 Anion Gap 7 BUN 23 Creatinine 0.7 Estimated Creat Clear 64.92 Estimated GFR 103 Glucose 116 H Calcium 8.0 L C-Reactive Protein 17.8 H
--- NOTE | 2024-09-16 14:21 | PC.NURSE ---
End of Shift ([id number]) Patient pleasant and cooperative, A&O. VSS, afebrile. Patient reports pain in his back this shift managed with PRN medication, see MAR. He still has some redness and swelling to the scrotum, towel used as a sling to allow ice pack below scrotum this shift. Tolerating regular diet, denies N/V. 1A with walker and gait belt. ?
--- NOTE | 2024-09-16 15:15 | CRLHL7_ITS ---
For Patients: As a result of the Cures Act, medical imaging exams and procedure reports are released immediately into your electronic medical record. You may view this report before your referring provider. If you have questions, please contact your health care provider. INDICATION: Possible scrotal abscess. TECHNIQUE: Ultrasound examination of the scrotum was performed. COMPARISON: Ultrasound 09/14/2024. CT abdomen and pelvis 09/11/2024. FINDINGS: Heterogeneous echotexture and diffuse enlargement with hypervascularity of the right epididymis has increased. Hypervascularity in the right testicle also appears increased. No focal testicular lesion. Incidental tiny right epididymal cyst. Heterogeneous echogenic foci adjacent to the right testicle is again demonstrated. There is diffuse thickening and hypervascularity of the scrotal wall soft tissues. No discrete scrotal wall soft tissue fluid collection. Left testicle is homogeneous in echotexture. Normal-appearing flow is present in the left testicle. Left epididymis is within normal limits. Small left hydrocele. IMPRESSION: 1. Findings worrisome for right epididymitis/orchitis have likely progressed. No focal testicular lesion. 2. Heterogeneous echogenicity adjacent to the right testicle again may represent proteinaceous or blood products. 3. Diffuse scrotal wall soft tissue thickening with hypervascularity concerning for cellulitis. No discrete scrotal wall fluid collection at this time. Dictated by Ernie Guerra MD @ 09/16/2024 4:39:51 PM Dictated by: Ernie Guerra MD @ 09/16/2024 16:40:30 (Electronically Signed)
[2024-09-16] MEDS: PIPERACILLIN/TAZOBACTAM 4.5 GM in 0.9 % SODIUM CHLORIDE Mini-bag 100 ML IVPB ×2 (18:27→23:44)
[2024-09-16] MEDS: DOXYCYCLINE HYCLATE 100 MG PO (21:40)
[2024-09-16] MEDS: ATORVASTATIN CALCIUM 40 MG TABLET 80 MG PO (21:40)
[2024-09-16] MEDS: GABAPENTIN 300 MG CAPSULE PO (21:41)
--- NOTE | 2024-09-16 23:08 | PC.NURSE ---
End of Shift: Patient pleasant and cooperative. Afebrile. Rating pain in right testicle up to 5/10 and PRN Oxycodone given x2. Encouraged to ice and elevate but patient declined. Up to bathroom with SBA and walker. Tolerating regular diet with no nausea.
[2024-09-17] VITALS (9 sets, daily range): BP systolic 120–154; BP diastolic 69–73; PULSE 60–87; RESP 20–22; TEMP 36.1–36.6; O2SAT 90–97
[2024-09-17] MEDS: METOPROLOL TARTRATE 25 MG TABLET PO ×6 (00:58→21:03)
[2024-09-17] MEDS: PIPERACILLIN/TAZOBACTAM 4.5 GM in 0.9 % SODIUM CHLORIDE Mini-bag 100 ML IVPB ×4 (06:00→23:13)
[2024-09-17 06:43] LABS: Basophils Absolute Auto 0.02 K/uL (0.00-0.30); Basophils Percent Auto 0.2 % (0.0-3.0); Eosinophils Absolute Auto 0.16 K/uL (0.00-0.50); Hematocrit 33.8 % (37.0-53.0); Hemoglobin* 10.8 gm/dL (13.5-17.5); Immature Granulocytes Abs Auto 0.04 K/uL (0.00-0.30); Immature Granulocytes Pct Auto 0.5 %; Lymphocytes Percent Auto 10.7 % (20-44); Mean Corpuscular HGB Conc 32 gm/dL (32-36); Mean Corpuscular Hemoglobin 30 pg (26-34); Mean Corpuscular Volume 94 fL (80-100); Monocytes Percent Auto 10.3 % (0.0-11.0); Neutrophils Percent Auto 76.3 % (42.0-72.0); Platelet Count* 148 K/uL (140-440); RDW Coefficient of Variation % 14.8 % (11.5-15.5); Red Blood Count 3.58 m/uL (4.30-5.90); White Blood Count* 8.15 K/uL (4.50-11.00)
[2024-09-17 06:47] LABS: Slide Review Reflex No
[2024-09-17 07:05] LABS: Chloride* 96 mmol/L (96-114)
[2024-09-17 07:06] LABS: Potassium* 3.9 mmol/L (3.6-5.1); Sodium* 131 mmol/L (135-149)
--- NOTE | 2024-09-17 07:06 | PC.NURSE ---
End of shift [id number]: Pt has been A&O, afebrile and VSS overnight. TELE has read A. Fib NVR with rate 70s-90s. Scheduled metoprolol given q4H throughout the night. Pt had his home CPAP on overnight maintaining his O2. He is SBA with 2ww for ambulation. No hematuria noted in urine with adequate output overnight. Rates testicular pain at 4/10 but denied pain meds overnight, just states ?it?s tender?. PIV in right AC SL and C/D/I. ?
[2024-09-17 07:08] LABS: Creatinine* 0.8 mg/dL (0.5-1.5); Est. Creatinine Clearance* 64.92; Estimated Glomerular Filt Rate 99 ml/min
[2024-09-17 07:09] LABS: Anion Gap 10 mEq/L (7-15); Blood Urea Nitrogen* 18 mg/dL (7-30); Calcium* 8.2 mg/dL (8.4-10.6); Carbon Dioxide* 25 mmol/L (20-32); Glucose* 112 mg/dL (60-115)
[2024-09-17] MEDS: APIXABAN 5 MG TABLET PO ×2 (08:37→21:04)
[2024-09-17] MEDS: dilTIAZem 120 MG CAP.ER.24H PO ×2 (08:37→21:04)
[2024-09-17] MEDS: DOXYCYCLINE HYCLATE 100 MG PO ×2 (08:37→21:04)
[2024-09-17] MEDS: POTASSIUM CHLORIDE 10 MEQ CAPSULE ER 20 MEQ PO (08:37)
[2024-09-17] MEDS: SODIUM CHLORIDE 0.9 % (FLUSH) 10 ML SYRINGE 5 ML IVF ×2 (08:38→21:04)
[2024-09-17] MEDS: OXYCODONE 5 MG TABLET PO ×2 (10:23→21:03)
--- NOTE | 2024-09-17 10:25 | P.IMPN_ITS ---
Progress Note: A&P Assessment and plan (1) Sepsis: Problem details: Resolved: Resolved Hypotension resolved tachycardia. leukocytosis improving, CRP improving. Likely due to orchitis and urinary tract infection Status: Resolved (2) Acute epididymo-orchitis: Problem details: - 09/14 Likely the cause of hematuria, right scrotal pain and fever. Urine culture from 3 days ago showed pansensitive E coli. On ceftriaxone - 09/15 Some improvement overnight. Reviewed US scrotum done in ER yesterday (results above). May benefit from repeat US tomorrow to see if there are fluid collections or expanding hematoma. - 09/16: DC ceftriaxone, Repeat US of the scrotum showed: 1. Findings worrisome for right epididymitis/orchitis have likely progressed. No focal testicular lesion. 2. Heterogeneous echogenicity adjacent to the right testicle again may represent proteinaceous or blood products. 3. Diffuse scrotal wall soft tissue thickening with hypervascularity concerning for cellulitis. No discrete scrotal wall fluid collection at this time. As his infection is progressing, will DC ceftriaxone and start zosyn and doxycyclin. - 09/17: P/E improved exam, right testicle is much softer than yesterday but still swollen. Reviewing up-to-date, we expect swelling to go down slowly over 2 weeks. Status: Acute (3) Atrial fibrillation with RVR: Problem details: - RVR likely due to sepsis. Off anticoagulation for 2 days prior to admission, he has been on Eliquis since admission. - had been started on increased diltiazem yesterday, given both IV and or extra oral doses and his usual diltiazem was increased and split in half to b.i.d.. Despite that he was still in RVR this morning for which I tried an extra dose of oral short-acting diltiazem without affect. I gave 1 IV dose of metoprolol with good affect and have started oral metoprolol scheduled with hold parameters. -echocardiogram today as patient has not had one for 2 years, unremarkable for preliminary report . Status: Resolved (4) Hematuria: Problem details: Due to orchitis and anticoagulation. Gross hematuria has resolved Status: Acute (5) Morbid obesity with body mass index (BMI) of 40.0 or higher: Status: Chronic (6) Heart failure with preserved ejection fraction: Problem details: EF 65-70% on 10/23/22 Status: Suspected (7) Obstructive sleep apnea: Problem details: On CPAP at home Status: Chronic (8) Hypertension: Problem details: Continue to hold diuretics, furosemide and spironolactone and valsartan until blood pressure improves Status: Chronic (9) Hypokalemia: Problem details: - mild, asymptomatic, patient is off his usual spironolactone and other diuretics. Will give oral replacement today. Recheck in the morning Status: Acute Plan As above Time Spent With Patient Total time spent: Today I spent 50 minutes seeing the patient, reviewing Expanse and EPIC notes/diagnostics, discussing the care plan with our care time that includes social work, PT/OT, pharmacy, RT, nursing home and documenting my impressions and plan in the medical record. Subjective Date Seen: 09/17/24 Interval history: Patient seen and examined this morning. Delgado feels a bit better today. White blood cells normalized, CRP is downtrending. Patient is afebrile hemodynamically stable not tachycardic. Exam Narrative: Exam Narrative: General: No acute distress. Obese. Cardiovascular: NL S1 S2. No murmurs, gallops, or rubs. Respiratory: Clear to auscultation bilaterally. No wheezes or crackles. Abdomen: Bowel sounds present. Soft, obese, nontender. Genitourinary: Swollen, tender right testicle with redness, softer than yesterday. Neuro: Awake, alert, oriented x3. NL speech Const: Vital Signs, click to edit/add: Vital Signs - 24 hr 09/16/24 10:31 09/16/24 10:41 09/16/24 12:12 Temperature 98.1 F Pulse Rate 85 Pulse Rate [Pulse Oximeter] 79 77 Respiratory Rate 20 18 Blood Pressure [Le ft Arm] 106/80 Pulse Oximetry 96 Oxygen Delivery Me thod Room Air 09/16/24 15:00 09/16/24 15:00 09/16/24 15:00 Temperature 97.9 F Pulse Rate 66 Pulse Rate [Pulse Oximeter] 66 66 Respiratory Rate 16 16 Blood Pressure [Le ft Arm] 120/65 Pulse Oximetry 95 Oxygen Delivery Me thod 09/16/24 19:00 09/16/24 21:30 09/16/24 23:00 Temperature 97.0 F L Pulse Rate 81 Pulse Rate [Pulse Oximeter] 70 75 Respiratory Rate 16 Blood Pressure [Le ft Arm] 130/67 123/75 Pulse Oximetry 97 Oxygen Delivery Me thod Room Air 09/16/24 23:00 09/16/24 23:00 09/17/24 03:50 Temperature 98.5 F 97.1 F L Pulse Rate Pulse Rate [Pulse Oximeter] 89 89 75 Respiratory Rate 18 18 20 Blood Pressure [Le ft Arm] 128/69 140/71 H Pulse Oximetry 94 97 Oxygen Delivery Me thod CPAP Room Air 09/17/24 07:00 09/17/24 07:00 09/17/24 07:00 Temperature 97 F L Pulse Rate 77 Pulse Rate [Pulse Oximeter] 87 87 Respiratory Rate 22 22 Blood Pressure [Le ft Arm] 120/69 Pulse Oximetry 95 Oxygen Delivery Me thod Room Air Labs Labs: Laboratory Results - last 24 hr 09/17/24 06:11 WBC 8.15 RBC 3.58 L Hgb 10.8 L Hct 33.8 L MCV 94 MCH 30 MCHC 32 RDW Coeff of Myles 14.8 Plt Count 148 Neut % (Auto) 76.3 H Lymph % (Auto) 10.7 L [place] % (Auto) 10.3 Eos % (Auto) 2.0 Baso % (Auto) 0.2 Neut # (Auto) 6.20 Lymph # (Auto) 0.90 [place] # (Auto) 0.80 Eos # (Auto) 0.16 Baso # (Auto) 0.02 Abs Immat Gran (auto) 0.04 Imm/Tot Granulo (auto) 0.5 Sodium 131 L Potassium 3.9 Chloride 96 Carbon Dioxide 25 Anion Gap 10 BUN 18 Creatinine 0.8 Estimated Creat Clear 64.92 Estimated GFR 99 Glucose 112 Calcium 8.2 L C-Reactive Protein 15.0 H Imaging Scrotal ultrasound: Radiologist's impression: TECHNIQUE: Ultrasound examination of the scrotum was performed. COMPARISON: Ultrasound 09/14/2024. CT abdomen and pelvis 09/11/2024. FINDINGS: Heterogeneous echotexture and diffuse enlargement with hypervascularity of the right epididymis has increased. Hypervascularity in the right testicle also appears increased. No focal testicular lesion. Incidental tiny right epididymal cyst. Heterogeneous echogenic foci adjacent to the right testicle is again demonstrated. There is diffuse thickening and hypervascularity of the scrotal wall soft tissues. No discrete scrotal wall soft tissue fluid collection. Left testicle is homogeneous in echotexture. Normal-appearing flow is present in the left testicle. Left epididymis is within normal limits. Small left hydrocele. IMPRESSION: 1. Findings worrisome for right epididymitis/orchitis have likely progressed. No focal testicular lesion. 2. Heterogeneous echogenicity adjacent to the right testicle again may represent proteinaceous or blood products. 3. Diffuse scrotal wall soft tissue thickening with hypervascularity concerning for cellulitis. No discrete scrotal wall fluid collection at this time. Dictated by Ernie Guerra MD @ 09/16/2024 4:39:51 PM
[2024-09-17 12:11] LABS: Chlamydia DNA Amplified* NOT DETECTED (No Detected); GC DNA Amplified* NOT DETECTED (No Detected)
--- NOTE | 2024-09-17 18:17 | PC.NURSE ---
Shift Note: Pt friendly and cooperative, able to verbalize his needs. VSS, pt noted to be in A-fib with normal ventricular rate this morning and converted late this afternoon after a shower to NSR. HR currently 68 BPM. BP's 120's-130's systolic and SpO2 greater than 90% on RA. Afebrile. He is rating scrotum pain anywhere from 0-6/10. Pt states discomfort increases drastically with movement. Offered sling for elevation and support as well as ice, pt has declined these interventions today. He is moving independently and currently has visitors at bedside. Zosyn infused without difficulty.
[2024-09-17] MEDS: ACETAMINOPHEN 325 MG TABLET 650 MG PO (21:02)
[2024-09-17] MEDS: ATORVASTATIN CALCIUM 40 MG TABLET 80 MG PO (21:03)
[2024-09-17] MEDS: GABAPENTIN 300 MG CAPSULE PO (21:04)
[2024-09-18] VITALS (9 sets, daily range): BP systolic 147–174; BP diastolic 67–80; PULSE 50–69; RESP 20–35; TEMP 36–36.9; O2SAT 84–95
[2024-09-18] MEDS: METOPROLOL TARTRATE 25 MG TABLET PO ×5 (02:16→17:48)
[2024-09-18] MEDS: PIPERACILLIN/TAZOBACTAM 4.5 GM in 0.9 % SODIUM CHLORIDE Mini-bag 100 ML IVPB ×4 (05:59→23:46)
[2024-09-18 06:48] LABS: Basophils Absolute Auto 0.02 K/uL (0.00-0.30); Basophils Percent Auto 0.2 % (0.0-3.0); Eosinophils Percent Auto 3.5 % (0.0-7.0); Hemoglobin* 11.7 gm/dL (13.5-17.5); Immature Granulocytes Abs Auto 0.06 K/uL (0.00-0.30); Immature Granulocytes Pct Auto 0.7 %; Lymphocytes Percent Auto 15.7 % (20-44); Mean Corpuscular HGB Conc 32 gm/dL (32-36); Mean Corpuscular Hemoglobin 31 pg (26-34); Mean Corpuscular Volume 97 fL (80-100); Monocytes Percent Auto 10.6 % (0.0-11.0); Neutrophils Absolute Auto 5.92 K/uL (1.7-7.0); Neutrophils Percent Auto 69.3 % (42.0-72.0); Platelet Count* 201 K/uL (140-440); RDW Coefficient of Variation % 14.9 % (11.5-15.5); Red Blood Count 3.82 m/uL (4.30-5.90); White Blood Count* 8.55 K/uL (4.50-11.00)
[2024-09-18 06:55] LABS: Slide Review Reflex No
--- NOTE | 2024-09-18 06:56 | PC.NURSE ---
Pt pleasant and cooperative. VSS Up independantly in room. Voiding without difficulty. Had a BM this am.
[2024-09-18 07:08] LABS: Chloride* 98 mmol/L (96-114); Potassium* 4.4 mmol/L (3.6-5.1); Sodium* 134 mmol/L (135-149)
[2024-09-18 07:11] LABS: Anion Gap 5 mEq/L (7-15); Carbon Dioxide* 31 mmol/L (20-32); Creatinine* 0.9 mg/dL (0.5-1.5); Est. Creatinine Clearance* 64.92; Estimated Glomerular Filt Rate 95 ml/min
[2024-09-18 07:12] LABS: Blood Urea Nitrogen* 18 mg/dL (7-30); Calcium* 8.7 mg/dL (8.4-10.6); Glucose* 118 mg/dL (60-115)
[2024-09-18] MEDS: DOXYCYCLINE HYCLATE 100 MG PO ×2 (08:39→21:17)
[2024-09-18] MEDS: POTASSIUM CHLORIDE 10 MEQ CAPSULE ER 20 MEQ PO (08:39)
[2024-09-18] MEDS: OXYCODONE 5 MG TABLET PO ×2 (08:40→15:46)
[2024-09-18] MEDS: APIXABAN 5 MG TABLET PO ×2 (08:40→21:17)
[2024-09-18] MEDS: dilTIAZem 120 MG CAP.ER.24H PO (08:40)
[2024-09-18] MEDS: SODIUM CHLORIDE 0.9 % (FLUSH) 10 ML SYRINGE 5 ML IVF ×2 (08:43→21:19)
--- NOTE | 2024-09-18 08:48 | PM.IMPN1 ---
Progress Note: A&P Assessment and plan (1) Acute epididymo-orchitis: Problem details: - negative PCR test for gonorrhea and chlamydia. - 09/14 Likely the cause of hematuria, right scrotal pain and fever. Urine culture from 3 days ago showed pansensitive E coli. On ceftriaxone - 09/15 Some improvement overnight. Reviewed US scrotum done in ER yesterday (results above). May benefit from repeat US tomorrow to see if there are fluid collections or expanding hematoma. - 09/16: DC ceftriaxone, Repeat US of the scrotum showed: 1. Findings worrisome for right epididymitis/orchitis have likely progressed. No focal testicular lesion. 2. Heterogeneous echogenicity adjacent to the right testicle again may represent proteinaceous or blood products. 3. Diffuse scrotal wall soft tissue thickening with hypervascularity concerning for cellulitis. No discrete scrotal wall fluid collection at this time. As his infection is progressing, will DC ceftriaxone and start zosyn and doxycyclin. - 09/17: P/E improved exam, right testicle is much softer than yesterday but still swollen. Reviewing up-to-date, we expect swelling to go down slowly over 2 weeks. - 09/18: right testicle is not as tender to palpation as it used to be, color is much improved currently light pink, still swollen, NO redness, tenderness or swelling extending to his thigh or perineum. Status: Acute (2) Sepsis: Problem details: Resolved: Resolved Hypotension resolved tachycardia. leukocytosis resolved, CRP improving. Likely due to orchitis and urinary tract infection Status: Resolved (3) Atrial fibrillation with RVR: Problem details: - RVR likely due to sepsis. Off anticoagulation for 2 days prior to admission, he has been on Eliquis since admission. - had been started on increased diltiazem yesterday, given both IV and or extra oral doses and his usual diltiazem was increased and split in half to b.i.d.. Despite that he was still in RVR this morning for which I tried an extra dose of oral short-acting diltiazem without affect. I gave 1 IV dose of metoprolol with good affect and have started oral metoprolol scheduled with hold parameters. -echocardiogram today as patient has not had one for 2 years, unremarkable for preliminary report . Status: Resolved (4) Hematuria: Problem details: Due to orchitis and anticoagulation. Gross hematuria has resolved Status: Acute (5) Morbid obesity with body mass index (BMI) of 40.0 or higher: Status: Chronic (6) Heart failure with preserved ejection fraction: Problem details: EF 65-70% on 10/23/22 Status: Suspected (7) Obstructive sleep apnea: Problem details: On CPAP at home Status: Chronic (8) Hypertension: Problem details: Continue to hold diuretics, furosemide and spironolactone and valsartan until blood pressure improves Status: Chronic (9) Hypokalemia: Problem details: - mild, asymptomatic, patient is off his usual spironolactone and other diuretics. Will give oral replacement today. Recheck in the morning Status: Acute Plan As above Time Spent With Patient Total time spent: Today I spent 50 minutes seeing the patient, reviewing Expanse and EPIC notes/diagnostics, discussing the care plan with our care time that includes social work, PT/OT, pharmacy, RT, group home and documenting my impressions and plan in the medical record. Subjective Date Seen: 09/18/24 Interval history: Patient seen and examined this morning. Patient states that he had a good night slept well pain is much better today. On examination, his right testicle is not as tender to palpation as it used to be, color is much improved currently light pink, still swollen. Exam Narrative: Exam Narrative: General: No acute distress. Obese. Cardiovascular: NL S1 S2. No murmurs, gallops, or rubs. Respiratory: Clear to auscultation bilaterally. No wheezes or crackles. Abdomen: Bowel sounds present. Soft, obese, nontender. Genitourinary: right testicle is not as tender to palpation as it used to be, color is much improved currently light pink, still swollen, NO redness, tenderness or swelling extending to his thigh or perineum. Neuro: Awake, alert, oriented x3. NL speech Const: Vital Signs, click to edit/add: Vital Signs - 24 hr 09/17/24 11:00 09/17/24 15:00 09/17/24 15:00 Temperature 97.5 F L 98 F Pulse Rate Pulse Rate [Pulse Oximeter] 79 82 75 Respiratory Rate 22 22 22 Blood Pressure [Le ft Arm] 120/69 141/73 H Pulse Oximetry 94 90 Oxygen Delivery Me thod Room Air Room Air 09/17/24 18:00 09/17/24 20:01 09/17/24 20:11 Temperature Pulse Rate 68 69 Pulse Rate [Pulse Oximeter] 69 Respiratory Rate 20 Blood Pressure [Le ft Arm] 146/69 H Pulse Oximetry 95 Oxygen Delivery Me thod Room Air 09/17/24 21:14 09/17/24 23:00 09/17/24 23:00 Temperature 98 F Pulse Rate 60 Pulse Rate [Pulse Oximeter] 69 69 Respiratory Rate 20 Blood Pressure [Le ft Arm] 154/70 H Pulse Oximetry 95 Oxygen Delivery Me thod Room Air 09/17/24 23:00 09/18/24 06:16 09/18/24 07:00 Temperature 96.8 F L 98.1 F Pulse Rate 62 Pulse Rate [Pulse Oximeter] 61 56 L Respiratory Rate 22 22 Blood Pressure [Le ft Arm] 147/76 H 150/77 H Pulse Oximetry 93 93 Oxygen Delivery Wy thod Room Air Room Air Labs Labs: Laboratory Results - last 24 hr 09/17/24 09/18/24 10:30 06:14 WBC 8.55 RBC 3.82 L Hgb 11.7 L Hct 37.0 MCV 97 MCH 31 MCHC 32 RDW Coeff of Myles 14.9 Plt Count 201 Neut % (Auto) 69.3 Lymph % (Auto) 15.7 L [place] % (Auto) 10.6 Eos % (Auto) 3.5 Baso % (Auto) 0.2 Neut # (Auto) 5.92 Lymph # (Auto) 1.30 [place] # (Auto) 0.90 Eos # (Auto) 0.30 Baso # (Auto) 0.02 Abs Immat Gran (auto) 0.06 Imm/Tot Granulo (auto) 0.7 Sodium 134 L Potassium 4.4 Chloride 98 Carbon Dioxide 31 Anion Gap 5 L BUN 18 Creatinine 0.9 Estimated Creat Clear 64.92 Estimated GFR 95 Glucose 118 H Calcium 8.7 C.trachomatis Ampl DNA NOT DETECTED N.gonorrhoeae Ampl DNA NOT DETECTED
--- NOTE | 2024-09-18 14:54 | CRLHL7_ITS ---
For Patients: As a result of the Cures Act, medical imaging exams and procedure reports are released immediately into your electronic medical record. You may view this report before your referring provider. If you have questions, please contact your health care provider. INDICATION: Shortness of breath TECHNIQUE: Chest radiograph 1 view COMPARISON: None FINDINGS: The sensitivity and specificity of the exam are severely limited by the patient`s body habitus. Mediastinum: The mediastinum is normal in appearance. The heart silhouette is normal in size and morphology. Lung: Reticular interstitial prominence is present in the lower lung zones bilaterally. No sign of pleural effusion seen. No pneumothorax is identified. Bone and Soft tissue: Unremarkable for age. IMPRESSION: 1. Reticular interstitial prominence is present in the lower lung zones bilaterally. Findings may be due to aspiration, interstitial edema and/or atelectasis. Dictated by James Flores MD @ 09/18/2024 3:35:55 PM Dictated by: James Folres MD @ 09/18/2024 15:35:58 (Electronically Signed)
--- NOTE | 2024-09-18 17:31 | PM.EN ---
Chart Event Note Date Seen: 09/18/24 Chart Event Note: Shortly after 14:30, nursing staff alerted me that patient's oxygenation saturations had dropped into the 40s and patient was feeling short of breath. Upon seeing the patient, he is sitting up on the edge of the bed. He appears shortly dyspneic. Denies headache or dizziness. Denies chest pain or tightness. Feel short of breath which was worse when lying reclined. Tells me he started feeling nauseous so got himself up to the bathroom where he urinated and had a bowel movement. He tells me he started to dry heave but did not bring anything up. When asked, he admits he started coughing during these dry heaves. In listening to breath sounds, they are present, slightly reduced in left lower lobe. No rhonchi or wheezes. No pain with deep breathing. Supplemental oxygen was applied per nasal cannula and saturations increased to 95%. A portable chest x-ray was obtained which appeared fluffy. Formal CXR read: Reticular interstitial prominence is present in the lower lung zones bilaterally. Findings may be due to aspiration, interstitial edema and/or atelectasis. RT evaluated the patient, recommending aerobika. Given the patient is currently on Zosyn 4.5 g q.6 hours, will forego further IV antibiotics and continue to monitor, considering further therapies if new or worsening symptoms or no improvement.
--- NOTE | 2024-09-18 18:02 | CRLHL7_ITS ---
For Patients: As a result of the 21st Century Cures Act, medical imaging exams and procedure reports are released immediately into your electronic medical record. You may view this report before your referring provider. If you have questions, please contact your health care provider. INDICATION: Shortness of breath hypoxia TECHNIQUE: CT chest with 95 mL Isovue 370 COMPARISON: None. FINDINGS: Lungs and pleura: Interlobular septal thickening and basilar bronchial wall thickening. Basilar atelectasis. Bilateral mild ground-glass opacities. Small effusions. Right lower lobe granuloma. A few scattered micro nodules example 2 millimeter nodule posterior right lower lobe 4/100. Heart and vasculature: Heart size is normal. Thoracic aorta and pulmonary artery are normal in caliber. No pulmonary emboli. Lymph nodes/mediastinum: Calcified mediastinal and hilar nodes. Chest wall: No masses. Upper abdomen: No significant findings. Bones: Unremarkable for age. IMPRESSION: 1. No pulmonary emboli. 2. Interlobular septal thickening ground-glass opacities. Small effusions findings could be seen with pulmonary edema, infectious inflammatory etiologies. 3. Few small micronodules follow-up for Fleischner society guidelines. FLEISCHNER SOCIETY GUIDELINES - SOLID NODULES: SINGLE LOW RISK - nodule less than 6 mm: No routine follow-up. - nodule 6-8 mm: CT at 6-12 months, then consider CT at 18-24 months. - nodule greater than 8 mm: Consider CT at 3 months, PET/CT or tissue sampling. SINGLE HIGH RISK - nodule less than 6 mm: Optional CT at 12 months. - nodule 6-8 mm: CT at 6-12 months, then CT at 18-24 months. - nodule greater than 8 mm: Consider CT at 3 months, PET/CT or tissue sampling. MULTIPLE LOW RISK - nodule less than 6 mm: No routine follow-up. - nodule 6-8 mm: CT at 3-6 months, then consider CT at 18-24 months. - nodule greater than 8 mm: CT at 3-6 months, then consider CT at 18-24 months. MULTIPLE HIGH RISK - nodule less than 6 mm: Optional CT at 12 months. - nodule 6-8 mm: CT at 3-6 months, then at 18-24 months. - nodule greater than 8 mm: CT at 3-6 months, then at 18-24 months. Please note that all CT scans at this facility use dose modulation, iterative reconstruction, and/or weight-based dosing when appropriate to reduce radiation dose to as low as reasonably achievable. Dictated by Morena Andre MD @ 09/18/2024 8:32:48 PM (Electronically Signed)
[2024-09-18 19:01] LABS: NT Pro B Type NatriureticPept* 2020 pg/mL
--- NOTE | 2024-09-18 19:57 | PC.NURSE ---
End of shift-- Pt was pleasant and cooperative, alert and oriented. VSS and pt is afebrile. Telemetry shows NSR to sinus latoya. SPO2 94-96% on RA this morning, but this afternoon pt c/o SOB and sats were 87-88% on RA and dropped to 83-84% following exertion. MD was notified and O2 was applied at 2L per n.c. LS CTA. Chest xray was completed per MD order. He was up to the BR independently today and tolerated it fair, though he did become SOB with exertion. Testicle remains swollen, though redness has improved. Pt voided frequently today and small amounts, but was bladder scanned post void x2 for a max of 37ml. He denied nausea most of the day, but did tell MD that he vomited in BR. Pt denied nausea following. Appetite has been poor today and pt ate only 50% of breakfast and then refused lunch and dinner. Pt continued to c/o feeling SOB this evening and orthopnea and MD was again notified and order was placed for chest CT. Report to SATHYA Ross.
[2024-09-18] MEDS: FUROSEMIDE 10 MG/ML inj 40 MG IVP (20:03)
[2024-09-18] MEDS: ACETAMINOPHEN 325 MG TABLET 650 MG PO (20:05)
--- NOTE | 2024-09-18 20:41 | RESP.RT ---
Patient appears to be up on fluid and needs to wear his CPAP. Family is cleaning his equipment. He will need to wear his CPAP until we are able get some more fluid off.
[2024-09-18] MEDS: ATORVASTATIN CALCIUM 40 MG TABLET 80 MG PO (21:16)
[2024-09-18] MEDS: GABAPENTIN 300 MG CAPSULE PO (21:17)
[2024-09-18] MEDS: FUROSEMIDE 10 MG/ML inj 20 MG IVP (21:18)
[2024-09-19] VITALS (15 sets, daily range): BP systolic 113–168; BP diastolic 65–88; PULSE 57–67; RESP 20–24; TEMP 36.1–36.9; O2SAT 84–97
[2024-09-19] MEDS: METOPROLOL TARTRATE 25 MG TABLET PO ×5 (01:38→23:34)
[2024-09-19] MEDS: OXYCODONE 5 MG TABLET PO (05:30)
[2024-09-19] MEDS: PIPERACILLIN/TAZOBACTAM 4.5 GM in 0.9 % SODIUM CHLORIDE Mini-bag 100 ML IVPB ×4 (05:39→23:45)
--- NOTE | 2024-09-19 06:50 | PC.NURSE ---
Pt alert and oriented x3. Afebrile, Pt reports 5-10/10 pain in scrotum, pain managed with PRN medications. Around 1920 pt?s O2 stats dropped 70% after pt was up to bathroom, pt was on 2L O2 via nasal cannula, turned O2 up to 5L but O2 stats only went up 79-81%. RN updated BERTRAM Lezama, orders given to give 40 mg IVP of furosemide and respiratory therapy came in and turned O2 up to 7L and recommended placing pt on CPAP with O2 attachment and gave education to pt on wearing CPAP with oxygen. Respiratory therapy gave verbal education to pt and pt?s daughter?on cleaning and maintenance on CPAP. Pt and pt?s daughter gave verbal understanding. CPAP was cleaned and O2 attachment was placed. Pt?s O2 stats came back up to 88-94%. O2 titrated down to 1.5L throughout night. Pt is up ad yosef in room, voiding, and tolerating a regular diet. ?? ?
[2024-09-19 06:52] LABS: Basophils Absolute Auto 0.02 K/uL (0.00-0.30); Basophils Percent Auto 0.2 % (0.0-3.0); Eosinophils Absolute Auto 0.12 K/uL (0.00-0.50); Eosinophils Percent Auto 1.2 % (0.0-7.0); Hematocrit 38.2 % (37.0-53.0); Hemoglobin* 11.8 gm/dL (13.5-17.5); Immature Granulocytes Abs Auto 0.06 K/uL (0.00-0.30); Immature Granulocytes Pct Auto 0.6 %; Lymphocytes Percent Auto 13.8 % (20-44); Mean Corpuscular HGB Conc 31 gm/dL (32-36); Mean Corpuscular Hemoglobin 30 pg (26-34); Mean Corpuscular Volume 97 fL (80-100); Monocytes Percent Auto 9.3 % (0.0-11.0); Neutrophils Percent Auto 74.9 % (42.0-72.0); Platelet Count* 221 K/uL (140-440); RDW Coefficient of Variation % 14.9 % (11.5-15.5); Red Blood Count 3.95 m/uL (4.30-5.90); White Blood Count* 9.89 K/uL (4.50-11.00)
[2024-09-19 06:53] LABS: Slide Review Reflex No
[2024-09-19 07:01] LABS: Chloride* 96 mmol/L (96-114); Potassium* 4.2 mmol/L (3.6-5.1); Sodium* 134 mmol/L (135-149)
[2024-09-19 07:04] LABS: Anion Gap 10 mEq/L (7-15); Blood Urea Nitrogen* 17 mg/dL (7-30); Carbon Dioxide* 28 mmol/L (20-32); Creatinine* 0.9 mg/dL (0.5-1.5); Est. Creatinine Clearance* 64.92; Estimated Glomerular Filt Rate 95 ml/min; Glucose* 111 mg/dL (60-115)
[2024-09-19 07:05] LABS: Calcium* 8.5 mg/dL (8.4-10.6)
--- NOTE | 2024-09-19 08:24 | P.IMPN_ITS ---
Progress Note: A&P Assessment and plan (1) Acute epididymo-orchitis: Problem details: - negative PCR test for gonorrhea and chlamydia. - 09/14 Likely the cause of hematuria, right scrotal pain and fever. Urine culture from 3 days ago showed pansensitive E coli. On ceftriaxone - 09/15 Some improvement overnight. Reviewed US scrotum done in ER yesterday (results above). May benefit from repeat US tomorrow to see if there are fluid collections or expanding hematoma. - 09/16: DC ceftriaxone, Repeat US of the scrotum showed: 1. Findings worrisome for right epididymitis/orchitis have likely progressed. No focal testicular lesion. 2. Heterogeneous echogenicity adjacent to the right testicle again may represent proteinaceous or blood products. 3. Diffuse scrotal wall soft tissue thickening with hypervascularity concerning for cellulitis. No discrete scrotal wall fluid collection at this time. As his infection is progressing, will DC ceftriaxone and start zosyn and doxycyclin. - 09/17: P/E improved exam, right testicle is much softer than yesterday but still swollen. Reviewing up-to-date, we expect swelling to go down slowly over 2 weeks. - 09/18: right testicle is not as tender to palpation as it used to be, color is much improved currently light pink, still swollen, NO redness, tenderness or swelling extending to his thigh or perineum. -09/19: right testicle color is almost back to normal, decreased swelling. Penile skin with pitting edema, likely secondary to fluid overload, no redness, hotness or tenderness on palpation. -continue Zosyn and doxycycline. Status: Acute (2) Sepsis: Problem details: Resolved: Resolved Hypotension resolved tachycardia. leukocytosis resolved, CRP improving. Likely due to orchitis and urinary tract infection Status: Resolved (3) Acute exacerbation of chronic heart failure: Problem details: -history of heart failure with preserved ejection fraction. -elevated BNP, echo was done this admission on September 16 it showed severe concentric LVH LV ejection fraction 60-65%, [id number] MR, pulmonary artery pressure elevated at 35. - Chest x-ray and CTA suggests fluid overload, no PE. -Pt was not taking his furosemide for the past 6 months. Furosemide IV 60 mg were given 09/18. -will start him on furosemide IV 40 b.i.d. 09/19 morning. -Resume his spironolactone and valsartan 09/19. Status: Acute (4) Acute hypoxic respiratory failure: Problem details: -On 1-2 L/min O2 -wean oxygen as tolerated -hypoxia secondary to exacerbation of heart failure Status: Acute (5) Atrial fibrillation with RVR: Problem details: - RVR likely due to sepsis. Off anticoagulation for 2 days prior to admission, he has been on Eliquis since admission. Resolved. - S/P increased diltiazem given both IV and or extra oral doses and his usual diltiazem was increased and split in half to b.i.d.. - currently on Dilt PO 120 BID. - 09/15 - 09/19 patient was on metoprolol tartrate p.o. 25 mg q.4 hours. - 09/19 His heart rate has been in the upper 50s and 60s, I decreased the frequency of metoprolol tartrate 25 from q.4 hours to q.6 hours, and will re- evaluate. - echo was done this admission on September 16 it showed severe concentric LVH LV ejection fraction 60-65%, [id number] MR, pulmonary artery pressure elevated at 35. Status: Resolved (6) Penile edema: Problem details: - likely secondary to fluid overload - Penile skin with pitting edema, likely secondary to fluid overload, no redness, hotness or tenderness on palpation. - diuresis should help with his edema Status: Acute (7) Hematuria: Problem details: Due to orchitis and anticoagulation. Gross hematuria has resolved Status: Resolved (8) Morbid obesity with body mass index (BMI) of 40.0 or higher: Status: Chronic (9) Obstructive sleep apnea: Problem details: On CPAP at home Status: Chronic (10) Hypertension: Problem details: Continue to hold diuretics, furosemide and spironolactone and valsartan until blood pressure improves Status: Chronic (11) Hypokalemia: Problem details: - mild, asymptomatic, patient is off his usual spironolactone and other diuretics. Will give oral replacement today. Recheck in the morning Status: Acute (12) Pulmonary nodules: Problem details: -multiple micro nodules, about 2 mm -follow-up as an outpatient Status: Acute Plan As above Time Spent With Patient Total time spent: Today I spent 50 minutes seeing the patient, reviewing Expanse and EPIC notes/diagnostics, discussing the care plan with our care time that includes social work, PT/OT, pharmacy, RT, senior care and documenting my impressions and plan in the medical record. Subjective Date Seen: 09/19/24 Interval history: Patient seen and examined this morning. Patient states that he had shortness of breath overnight but pain is much better today. Chest x-ray and CTA were done overnight normal and it suggests fluid overload. Patient has history of heart failure with preserved ejection fraction, he was not taking his furosemide for the past 6 months. Furosemide IV 60 mg were given yesterday, will start him on furosemide IV 40 b.i.d. this morning. I resumed his spironolactone and valsartan. His heart rate has been in the upper 50s and 60s, I decreased the frequency of metoprolol tartrate 25 from q.4 hours to q.6 hours, and will re- evaluate. On examination, right testicle color is almost back to normal, decreased swelling. Penile skin with pitting edema, likely secondary to fluid overload, no redness, hotness or tenderness on palpation. Exam Narrative: Exam Narrative: General: No acute distress. Obese. Cardiovascular: NL S1 S2. No murmurs, gallops, or rubs. Respiratory: Clear to auscultation bilaterally. No wheezes or crackles. Abdomen: Bowel sounds present. Soft, obese, nontender. Genitourinary: right testicle color is almost back to normal, decreased swelling. Penile skin with pitting edema, likely secondary to fluid overload, no redness, hotness or tenderness on palpation. Neuro: Awake, alert, oriented x3. NL speech Const: Vital Signs, click to edit/add: Vital Signs - 24 hr 09/18/24 11:00 09/18/24 15:00 09/18/24 15:00 Temperature 98.4 F 98.4 F Pulse Rate Pulse Rate [Pulse Oximeter] 60 63 Respiratory Rate 22 20 20 Blood Pressure [Le ft Arm] 174/73 H Blood Pressure [Ri ght Arm] 153/77 H Pulse Oximetry 92 95 95 Oxygen Delivery Me thod Room Air Nasal Cannula Nasal Cannula Oxygen Flow Rate 2 2 09/18/24 15:00 09/18/24 15:00 09/18/24 20:12 Temperature 98.4 F Pulse Rate 63 Pulse Rate [Pulse Oximeter] 63 69 Respiratory Rate 20 35 H Blood Pressure [Le ft Arm] Blood Pressure [Ri ght Arm] 164/80 H Pulse Oximetry 84 L Oxygen Delivery Me thod Nasal Cannula Oxygen Flow Rate 7 09/18/24 21:20 09/18/24 22:45 09/18/24 22:45 Temperature Pulse Rate 55 L Pulse Rate [Pulse Oximeter] 50 L 50 L Respiratory Rate 20 20 Blood Pressure [Le ft Arm] Blood Pressure [Ri ght Arm] Pulse Oximetry 90 Oxygen Delivery Me thod CPAP Oxygen Flow Rate 3.5 09/18/24 23:46 09/18/24 23:46 09/19/24 02:30 Temperature 98.4 F Pulse Rate Pulse Rate [Pulse Oximeter] 59 L Respiratory Rate 20 20 24 Blood Pressure [Le ft Arm] 166/67 H Blood Pressure [Ri ght Arm] Pulse Oximetry 94 94 84 L Oxygen Delivery Me thod CPAP CPAP CPAP Oxygen Flow Rate 3.5 3.5 2 09/19/24 02:53 09/19/24 03:22 09/19/24 06:00 Temperature 98.4 F Pulse Rate Pulse Rate [Pulse Oximeter] 57 L Respiratory Rate 20 20 22 Blood Pressure [Le ft Arm] 143/68 H Blood Pressure [Ri ght Arm] Pulse Oximetry 91 94 90 Oxygen Delivery Me thod CPAP CPAP Nasal Cannula Oxygen Flow Rate 3 3 1.5 09/19/24 07:44 Temperature 96.9 F L Pulse Rate Pulse Rate [Pulse Oximeter] 60 Respiratory Rate 22 Blood Pressure [Le ft Arm] 168/78 H Blood Pressure [Ri ght Arm] Pulse Oximetry 92 Oxygen Delivery Me thod Nasal Cannula Oxygen Flow Rate 1.5 Labs Labs: Laboratory Results - last 24 hr 09/18/24 09/19/24 18:20 06:31 WBC 9.89 RBC 3.95 L Hgb 11.8 L Hct 38.2 MCV 97 MCH 30 MCHC 31 L RDW Coeff of Myles 14.9 Plt Count 221 Neut % (Auto) 74.9 H Lymph % (Auto) 13.8 L [place] % (Auto) 9.3 Eos % (Auto) 1.2 Baso % (Auto) 0.2 Neut # (Auto) 7.40 H Lymph # (Auto) 1.40 [place] # (Auto) 0.90 Eos # (Auto) 0.12 Baso # (Auto) 0.02 Abs Immat Gran (auto) 0.06 Imm/Tot Granulo (auto) 0.6 Sodium 134 L Potassium 4.2 Chloride 96 Carbon Dioxide 28 Anion Gap 10 BUN 17 Creatinine 0.9 Estimated Creat Clear 64.92 Estimated GFR 95 Glucose 111 Calcium 8.5 NT-Pro-B Natriuret Pep [address] scan - chest: Radiologist's impression: INDICATION: Shortness of breath hypoxia TECHNIQUE: CT chest with 95 mL Isovue 370 COMPARISON: None. FINDINGS: Lungs and pleura: Interlobular septal thickening and basilar bronchial wall thickening. Basilar atelectasis. Bilateral mild ground-glass opacities. Small effusions. Right lower lobe granuloma. A few scattered micro nodules example 2 millimeter nodule posterior right lower lobe 4/100. Heart and vasculature: Heart size is normal. Thoracic aorta and pulmonary artery are normal in caliber. No pulmonary emboli. Lymph nodes/mediastinum: Calcified mediastinal and hilar nodes. Chest wall: No masses. Upper abdomen: No significant findings. Bones: Unremarkable for age. IMPRESSION: 1. No pulmonary emboli. 2. Interlobular septal thickening ground-glass opacities. Small effusions findings could be seen with pulmonary edema, infectious inflammatory etiologies. 3. Few small micronodules follow-up for Fleischner society guidelines. FLEISCHNER SOCIETY GUIDELINES - SOLID NODULES: SINGLE LOW RISK - nodule less than 6 mm: No routine follow-up. - nodule 6-8 mm: CT at 6-12 months, then consider CT at 18-24 months. - nodule greater than 8 mm: Consider CT at 3 months, PET/CT or tissue sampling. SINGLE HIGH RISK - nodule less than 6 mm: Optional CT at 12 months. - nodule 6-8 mm: CT at 6-12 months, then CT at 18-24 months. - nodule greater than 8 mm: Consider CT at 3 months, PET/CT or tissue sampling. MULTIPLE LOW RISK - nodule less than 6 mm: No routine follow-up. - nodule 6-8 mm: CT at 3-6 months, then consider CT at 18-24 months. - nodule greater than 8 mm: CT at 3-6 months, then consider CT at 18-24 months. MULTIPLE HIGH RISK - nodule less than 6 mm: Optional CT at 12 months. - nodule 6-8 mm: CT at 3-6 months, then at 18-24 months. - nodule greater than 8 mm: CT at 3-6 months, then at 18-24 months. Please note that all CT scans at this facility use dose modulation, iterative reconstruction, and/or weight-based dosing when appropriate to reduce radiation dose to as low as reasonably achievable. Dictated by Morena Andre MD @ 09/18/2024 8:32:48 PM
[2024-09-19] MEDS: FUROSEMIDE 10 MG/ML inj 40 MG IVP ×2 (08:41→19:36)
[2024-09-19] MEDS: APIXABAN 5 MG TABLET PO ×2 (08:41→21:03)
[2024-09-19] MEDS: dilTIAZem 120 MG CAP.ER.24H PO ×2 (08:41→21:04)
[2024-09-19] MEDS: POTASSIUM CHLORIDE 10 MEQ CAPSULE ER 40 MEQ PO (08:41)
[2024-09-19] MEDS: DOXYCYCLINE HYCLATE 100 MG PO ×2 (08:41→21:03)
[2024-09-19] MEDS: SODIUM CHLORIDE 0.9 % (FLUSH) 10 ML SYRINGE 5 ML IVF ×2 (08:42→12:11)
[2024-09-19] MEDS: VALSARTAN 80 MG TABLET 40 MG PO (10:51)
[2024-09-19] MEDS: SPIRONOLACTONE 25 MG TABLET 50 MG PO (10:51)
--- NOTE | 2024-09-19 11:53 | REH.PT ---
PT Orders received. Patient refusing multiple attempts. Is moving independently in his hospital room. Will offer one additional time tomorrow.
--- NOTE | 2024-09-19 18:25 | PC.NURSE ---
Pt alert and oriented. Pt pleasant and cooperative. Pt had no complaints of pain. Pt up independently in room. Pt has SOB with exertion but rebounds to mid to high 90?s quickly. Pt weaned to one Liter and tolerated well. Per RT oxygen saturations of 86%-92% acceptable.?
[2024-09-19] MEDS: GABAPENTIN 300 MG CAPSULE PO (21:03)
[2024-09-19] MEDS: ATORVASTATIN CALCIUM 40 MG TABLET 80 MG PO (21:03)
[2024-09-20] MEDS: METOPROLOL TARTRATE 25 MG TABLET PO ×2 (05:35→11:43)
[2024-09-20 05:37] VITALS: BP 173/60; PULSE 60; RESP 20; TEMP 36.7; O2SAT 90
[2024-09-20] MEDS: PIPERACILLIN/TAZOBACTAM 4.5 GM in 0.9 % SODIUM CHLORIDE Mini-bag 100 ML IVPB ×2 (05:40→11:42)
--- NOTE | 2024-09-20 06:39 | PC.NURSE ---
Pt alert and oriented x3. Afebrile. Pt reports 5-6/10 pain in scrotum, PRN medications offered pt refused stating ?It?s fine right now?. Pt is on 0.5L O2 via O2 connector with CPAP for 4 hours then took CPAP and was on room air for?rest of night maintaining O2 stats of 88-92%. Pt is up ad yosef in room, voiding, and tolerating a regular diet.?
[2024-09-20 06:41] LABS: Basophils Absolute Auto 0.02 K/uL (0.00-0.30); Basophils Percent Auto 0.2 % (0.0-3.0); Eosinophils Absolute Auto 0.13 K/uL (0.00-0.50); Eosinophils Percent Auto 1.4 % (0.0-7.0); Hematocrit 35.2 % (37.0-53.0); Hemoglobin* 11.2 gm/dL (13.5-17.5); Immature Granulocytes Abs Auto 0.05 K/uL (0.00-0.30); Immature Granulocytes Pct Auto 0.5 %; Lymphocytes Percent Auto 14.6 % (20-44); Mean Corpuscular HGB Conc 32 gm/dL (32-36); Mean Corpuscular Hemoglobin 30 pg (26-34); Mean Corpuscular Volume 95 fL (80-100); Neutrophils Percent Auto 74.3 % (42.0-72.0); Platelet Count* 260 K/uL (140-440); RDW Coefficient of Variation % 14.8 % (11.5-15.5); Red Blood Count 3.72 m/uL (4.30-5.90); White Blood Count* 9.29 K/uL (4.50-11.00)
[2024-09-20 06:46] LABS: Slide Review Reflex No
[2024-09-20 06:50] LABS: Chloride* 96 mmol/L (96-114)
[2024-09-20 06:51] LABS: Potassium* 3.8 mmol/L (3.6-5.1); Sodium* 134 mmol/L (135-149)
[2024-09-20 06:53] LABS: Anion Gap 8 mEq/L (7-15); Carbon Dioxide* 30 mmol/L (20-32); Creatinine* 0.9 mg/dL (0.5-1.5); Est. Creatinine Clearance* 64.92; Estimated Glomerular Filt Rate 95 ml/min
[2024-09-20 06:54] LABS: Blood Urea Nitrogen* 19 mg/dL (7-30); Calcium* 8.6 mg/dL (8.4-10.6); Glucose* 108 mg/dL (60-115); Magnesium* 2.3 mg/dL (1.5-2.6)
[2024-09-20 07:00] VITALS: PULSE 54; PULSE 55; RESP 18; O2SAT 92
[2024-09-20 07:30] VITALS: BP 164/68; PULSE 55; RESP 18; O2SAT 92
[2024-09-20] MEDS: POTASSIUM CHLORIDE 10 MEQ CAPSULE ER 40 MEQ PO (08:48)
[2024-09-20] MEDS: APIXABAN 5 MG TABLET PO (08:49)
[2024-09-20] MEDS: SODIUM CHLORIDE 0.9 % (FLUSH) 10 ML SYRINGE 5 ML IVF (08:49)
[2024-09-20] MEDS: SPIRONOLACTONE 25 MG TABLET 50 MG PO (08:49)
[2024-09-20] MEDS: FUROSEMIDE 10 MG/ML inj 40 MG IVP (08:49)
[2024-09-20] MEDS: DOXYCYCLINE HYCLATE 100 MG PO (08:49)
[2024-09-20] MEDS: dilTIAZem 120 MG CAP.ER.24H PO (08:49)
[2024-09-20] MEDS: VALSARTAN 80 MG TABLET 40 MG PO (09:18)
--- NOTE | 2024-09-20 09:19 | REH.PT ---
Pt declined PT Eval. Up amb Ind in room without an AD. No history of falls. D/c PT Eval & treat orders.
[2024-09-20 11:00] VITALS: BP 144/66; PULSE 58; RESP 18; TEMP 36.4; O2SAT 92
--- NOTE | 2024-09-20 11:30 | PM.DS1 ---
DS: Providers Provider Date Seen: 09/20/24 Date of admission: 09/14/24 18:02 Primary care physician: Patel Lugo MD Admitting Clinician: Kathie Diaz MD Consults: 09/18/24 15:43 Consult to Respiratory Therapy [CONS] Routine Comment: Reason(s) for RT Consult:: Consult Comment: Increase shortness of breath and O2 sat dropped 09/19/24 08:15 Consult to Physical Therapy [CONS] Routine Comment: Reason(s) for PT Consult:: Evaluate and Treat Any Restrictions?:: No Restrictions Attending Physician on discharge: ZENA Platt, SAVANAH [facility] Date of Discharge: 09/20/24 DS: Diagnosis Discharge Diagnosis (1) Acute epididymo-orchitis: Status: Acute Problem details: - negative PCR test for gonorrhea and chlamydia. - 09/14 Likely the cause of hematuria, right scrotal pain and fever. Urine culture from 3 days ago showed pansensitive E coli. On ceftriaxone - 09/15 Some improvement overnight. Reviewed US scrotum done in ER yesterday (results above). May benefit from repeat US tomorrow to see if there are fluid collections or expanding hematoma. - 09/16: DC ceftriaxone, Repeat US of the scrotum showed: 1. Findings worrisome for right epididymitis/orchitis have likely progressed. No focal testicular lesion. 2. Heterogeneous echogenicity adjacent to the right testicle again may represent proteinaceous or blood products. 3. Diffuse scrotal wall soft tissue thickening with hypervascularity concerning for cellulitis. No discrete scrotal wall fluid collection at this time. As his infection is progressing, will DC ceftriaxone and start zosyn and doxycyclin. - 09/17: P/E improved exam, right testicle is much softer than yesterday but still swollen. Reviewing up-to-date, we expect swelling to go down slowly over 2 weeks. - 09/18: right testicle is not as tender to palpation as it used to be, color is much improved currently light pink, still swollen, NO redness, tenderness or swelling extending to his thigh or perineum. -09/19: right testicle color is almost back to normal, decreased swelling. Penile skin with pitting edema, likely secondary to fluid overload, no redness, hotness or tenderness on palpation. -continue Zosyn and doxycycline. Managed with IV antibiotics, switching from ceftriaxone to Zosyn and oral doxycycline in setting of worsening symptomatology and ultrasound showing progression of infection. Improved response with change of antibiotics. Blood cultures and urine cultures were negative. Patient is discharged on oral doxycycline to complete a 10 day course. Will need close follow-up with PCP this week for re-evaluation. (2) Sepsis: Status: Resolved Problem details: Resolved: Resolved Hypotension resolved tachycardia. leukocytosis resolved, CRP improving. Likely due to orchitis and urinary tract infection (3) Acute exacerbation of chronic heart failure: Status: Acute Problem details: -history of heart failure with preserved ejection fraction. -elevated BNP, echo was done this admission on September 16 it showed severe concentric LVH LV ejection fraction 60-65%, [id number] MR, pulmonary artery pressure elevated at 35. - Chest x-ray and CTA suggests fluid overload, no PE. -Pt was not taking his furosemide for the past 6 months. Furosemide IV 60 mg were given 09/18. -will start him on furosemide IV 40 b.i.d. 09/19 morning. -Resume his spironolactone and valsartan 09/19. Initiated on IV diuresis with significant, appropriate response. Monitoring strict I&Os. Compression stockings. Prior to discharge, patient saturating >90% on room air and able to ambulate without significant desaturations. Noted improvement of edema. Patient is discharged on oral furosemide and spironolactone after missing home doses as well. (4) Acute hypoxic respiratory failure: Status: Resolved Problem details: -On 1-2 L/min O2 -wean oxygen as tolerated -hypoxia secondary to exacerbation of heart failure Resolved prior to discharge following IV diuresis. (5) Atrial fibrillation with RVR: Status: Resolved Problem details: - RVR likely due to sepsis. Off anticoagulation for 2 days prior to admission, he has been on Eliquis since admission. Resolved. - S/P increased diltiazem given both IV and or extra oral doses and his usual diltiazem was increased and split in half to b.i.d.. - currently on Dilt PO 120 BID. - 09/15 - 09/19 patient was on metoprolol tartrate p.o. 25 mg q.4 hours. - 09/19 His heart rate has been in the upper 50s and 60s, I decreased the frequency of metoprolol tartrate 25 from q.4 hours to q.6 hours, and will re-evaluate. - echo was done this admission on September 16 it showed severe concentric LVH LV ejection fraction 60-65%, [id number] MR, pulmonary artery pressure elevated at 35. Patient was noted to convert to NSR following above therapies. Tolerating oral diltiazem and metoprolol. Metoprolol tartrate 25 mg de-escalated from q.4 hours to q.6 hours, transitioning to 50 mg b.i.d. upon discharge. Will need close outpatient follow-up with PCP. (6) Penile edema: Status: Acute Problem details: - likely secondary to fluid overload - Penile skin with pitting edema, likely secondary to fluid overload, no redness, hotness or tenderness on palpation. - diuresis should help with his edema Improved prior to discharge following IV diuresis, IV antibiotic management of infection. (7) Hematuria: Status: Resolved Problem details: Due to orchitis and anticoagulation. Gross hematuria has resolved (8) Morbid obesity with body mass index (BMI) of 40.0 or higher: Status: Chronic Problem details: Noted (9) Obstructive sleep apnea: Status: Chronic Problem details: On CPAP at home (10) Hypertension: Status: Chronic Problem details: Continue to hold diuretics, furosemide and spironolactone and valsartan until blood pressure improves. IV diuresis initiated in setting of acute exacerbation of heart failure. Patient is continued on home medications upon discharge to home. (11) Hypokalemia: Status: Acute Problem details: - mild, asymptomatic, patient is off his usual spironolactone and other diuretics. Potassium is 3.8 on day of discharge following oral replacement. He is continued on oral supplements upon discharge. (12) Pulmonary nodules: Status: Acute Problem details: -multiple micro nodules, about 2 mm -follow-up as an outpatient with PCP DS: Summary Hospital Course Hospital Course: [age] year old male was admitted to the medical floor for management of acut epididymitis/orchitis e. Course of care and details as noted above. As above, patient had appropriate response to IV antibiotics, transitioning to oral doxycycline to complete 10 day course. Will need close outpatient follow-up for re-evaluation and ongoing management. Remainder of chronic medical comorbidities were monitored and managed with home medications. Status at Discharge Functional status at discharge: independent ambulation Overall status at discharge: patient is back to baseline Time Spent with Patient Time attestation: Total time spent providing and/or coordinating discharge services: Time spent: Greater than 30 minutes Exam Narrative: Exam Narrative: PHYSICAL EXAM General: Pleasant, conversant, NAD Cardiovascular: RRR Pulmonary: No dyspnea Neurological: Alert, answering questions appropriately Skin: Warm, dry. Const: Vital Signs, click to edit/add: Vital Signs - 24 hr 09/19/24 15:10 09/19/24 15:10 09/19/24 16:17 Temperature 97.1 F L Pulse Rate 58 L Pulse Rate [Pulse Oximeter] 60 Respiratory Rate 20 20 Blood Pressure [Le ft Arm] 161/85 H Blood Pressure [Ri ght Arm] Pulse Oximetry 91 91 Oxygen Delivery Me thod Nasal Cannula Nasal Cannula Oxygen Flow Rate 1 1 09/19/24 17:52 09/19/24 19:43 09/19/24 21:35 Temperature 97.9 F Pulse Rate Pulse Rate [Pulse Oximeter] 66 67 Respiratory Rate 20 20 Blood Pressure [Le ft Arm] 145/66 H Blood Pressure [Ri ght Arm] 165/65 H Pulse Oximetry 90 91 Oxygen Delivery Me thod Nasal Cannula CPAP Oxygen Flow Rate 1 0.5 09/19/24 21:39 09/19/24 21:40 09/19/24 23:35 Temperature 98.0 F Pulse Rate 59 L Pulse Rate [Pulse Oximeter] 60 Respiratory Rate 20 22 Blood Pressure [Le ft Arm] 113/88 Blood Pressure [Ri ght Arm] Pulse Oximetry 86 L Oxygen Delivery Me thod CPAP Oxygen Flow Rate 0.5 09/20/24 05:37 09/20/24 07:00 09/20/24 07:00 Temperature 98.0 F Pulse Rate 54 L Pulse Rate [Pulse Oximeter] 60 Respiratory Rate 20 Blood Pressure [Le ft Arm] 173/60 H Blood Pressure [Ri ght Arm] Pulse Oximetry 90 92 Oxygen Delivery Me thod Room Air Room Air Oxygen Flow Rate 09/20/24 07:00 09/20/24 07:30 Temperature Pulse Rate Pulse Rate [Pulse Oximeter] 55 L 55 L Respiratory Rate 18 18 Blood Pressure [Le ft Arm] 164/68 H Blood Pressure [Ri ght Arm] Pulse Oximetry 92 Oxygen Delivery Me thod Room Air Oxygen Flow Rate DS: Data Data Completed and Pending Labs on day of discharge: Labs from last 24 hours 09/20/24 05:50 WBC 9.29 RBC 3.72 L Hgb 11.2 L Hct 35.2 L MCV 95 MCH 30 MCHC 32 RDW Coeff of Myles 14.8 Plt Count 260 Neut % (Auto) 74.3 H Lymph % (Auto) 14.6 L [place] % (Auto) 9.0 Eos % (Auto) 1.4 Baso % (Auto) 0.2 Neut # (Auto) 6.90 Lymph # (Auto) 1.40 [place] # (Auto) 0.80 Eos # (Auto) 0.13 Baso # (Auto) 0.02 Abs Immat Gran (auto) 0.05 Imm/Tot Granulo (auto) 0.5 Sodium 134 L Potassium 3.8 Chloride 96 Carbon Dioxide 30 Anion Gap 8 BUN 19 Creatinine 0.9 Estimated Creat Clear 64.92 Estimated GFR 95 Glucose 108 Calcium 8.6 Magnesium 2.3 Imaging Scrotal ultrasound: Attestation: I have reviewed the pertinent imaging results. Radiologist's impression: Both testicles are normal in size and echotexture. No masses. No suspicious calcifications. Arterial and venous color Doppler blood flow and spectral waveforms are present in both testicles. Asymmetric hypervascularity within the right testicle. Epididymis: Asymmetric hypervascularity of the right epididymis. Small right epididymal head cyst. Other: Debris within the superior right scrotal sac with loculated appearance. No sign of varicocele. Scrotal wall is unremarkable. Impression: 1. Asymmetric hypervascularity of the right testicle and epididymis, which could be consistent with orchitis/epididymitis. 2. Right scrotal sac debris with loculated appearance that could be secondary to infection. Blood products could also have this appearance if there is recent history of trauma. Repeat scrotal ultrasound Ultrasound 09/14/2024. CT abdomen and pelvis 09/11/2024. FINDINGS: Heterogeneous echotexture and diffuse enlargement with hypervascularity of the right epididymis has increased. Hypervascularity in the right testicle also appears increased. No focal testicular lesion. Incidental tiny right epididymal cyst. Heterogeneous echogenic foci adjacent to the right testicle is again demonstrated. There is diffuse thickening and hypervascularity of the scrotal wall soft tissues. No discrete scrotal wall soft tissue fluid collection. Left testicle is homogeneous in echotexture. Normal-appearing flow is present in the left testicle. Left epididymis is within normal limits. Small left hydrocele. IMPRESSION: 1. Findings worrisome for right epididymitis/orchitis have likely progressed. No focal testicular lesion. 2. Heterogeneous echogenicity adjacent to the right testicle again may represent proteinaceous or blood products. 3. Diffuse scrotal wall soft tissue thickening with hypervascularity concerning for cellulitis. No discrete scrotal wall fluid collection at this time. Chest x-ray: Attestation: I have reviewed the pertinent imaging results. Radiologist's impression: FINDINGS: The sensitivity and specificity of the exam are severely limited by the patient`s body habitus. Mediastinum: The mediastinum is normal in appearance. The heart silhouette is normal in size and morphology. Lung: Reticular interstitial prominence is present in the lower lung zones bilaterally. No sign of pleural effusion seen. No pneumothorax is identified. Bone and Soft tissue: Unremarkable for age. IMPRESSION: 1. Reticular interstitial prominence is present in the lower lung zones bilaterally. Findings may be due to aspiration, interstitial edema and/or atelectasis. CTA chest: Attestation: I have reviewed the pertinent imaging results. Radiologist's impression: Lungs and pleura: Interlobular septal thickening and basilar bronchial wall thickening. Basilar atelectasis. Bilateral mild ground-glass opacities. Small effusions. Right lower lobe granuloma. A few scattered micro nodules example 2 millimeter nodule posterior right lower lobe 4/100. Heart and vasculature: Heart size is normal. Thoracic aorta and pulmonary artery are normal in caliber. No pulmonary emboli. Lymph nodes/mediastinum: Calcified mediastinal and hilar nodes. Chest wall: No masses. Upper abdomen: No significant findings. Bones: Unremarkable for age. IMPRESSION: 1. No pulmonary emboli. 2. Interlobular septal thickening ground-glass opacities. Small effusions findings could be seen with pulmonary edema, infectious inflammatory etiologies. 3. Few small micronodules follow-up for Fleischner society guidelines. FLEISCHNER SOCIETY GUIDELINES - SOLID NODULES: SINGLE LOW RISK - nodule less than 6 mm: No routine follow-up. - nodule 6-8 mm: CT at 6-12 months, then consider CT at 18-24 months. - nodule greater than 8 mm: Consider CT at 3 months, PET/CT or tissue sampling. SINGLE HIGH RISK - nodule less than 6 mm: Optional CT at 12 months. - nodule 6-8 mm: CT at 6-12 months, then CT at 18-24 months. - nodule greater than 8 mm: Consider CT at 3 months, PET/CT or tissue sampling. MULTIPLE LOW RISK - nodule less than 6 mm: No routine follow-up. - nodule 6-8 mm: CT at 3-6 months, then consider CT at 18-24 months. - nodule greater than 8 mm: CT at 3-6 months, then consider CT at 18-24 months. MULTIPLE HIGH RISK - nodule less than 6 mm: Optional CT at 12 months. - nodule 6-8 mm: CT at 3-6 months, then at 18-24 months. - nodule greater than 8 mm: CT at 3-6 months, then at 18-24 months. Please note that all CT scans at this facility use dose modulation, iterative reconstruction, and/or weight-based dosing when appropriate to reduce radiation dose to as low as reasonably achievable. Discharge Plan Discharge Disposition: Home, Self-Care Date of Admission: 09/14/24 18:02 Attending Provider on Discharge: Lise Jenkins Primary Care Provider: Patel Lugo Discharge Medications: New atorvastatin 40 mg Tablet 80 mg PO HS Qty: 30 0RF diltiazem HCl [DILT-XR] 120 mg Capsule,Ext.Rel 24h Degradable 120 mg PO BID Qty: 60 0RF gabapentin 300 mg Capsule 300 mg PO HS Qty: 30 0RF doxycycline hyclate 100 mg Tablet 100 mg PO BID 6 Days Qty: 12 0RF Eliquis 5 mg Tablet 5 mg PO BID Qty: 60 0RF valsartan 80 mg Tablet 40 mg PO DAILY Qty: 30 0RF spironolactone 25 mg Tablet 50 mg PO DAILY Qty: 30 0RF furosemide 40 mg tablet 40 mg PO BID Qty: 60 0RF potassium chloride 20 mEq tablet extended release 20 meq PO BID Qty: 60 0RF metoprolol tartrate 50 mg tablet 50 mg PO BID Qty: 60 0RF Continued albuterol sulfate 90 mcg/actuation HFA aerosol inhaler 2 puff inhalation Q6H PRN (Reason: shortness of breath or wheezing) Qty: 8.5 0RF acetaminophen [8 Hour Pain Reliever] 650 mg tablet extended release 1,300 mg PO DAILY Discontinued apixaban 5 mg tablet 5 mg PO BID Qty: 60 3RF atorvastatin 80 mg tablet 80 mg PO HS Qty: 90 3RF diltiazem HCl 180 mg capsule,extended release 24hr 180 mg PO DAILY Qty: 90 3RF potassium chloride 10 mEq capsule, extended release 20 meq PO DAILY Qty: 180 1RF gabapentin 300 mg capsule 300 mg PO HS spironolactone 50 mg tablet 50 mg PO DAILY valsartan 40 mg tablet 40 mg PO DAILY furosemide 40 mg tablet 40 mg PO BID@0800,1400 Qty: 60 2RF Discharge Orders: Discharge Order (Routine); Ordered 09/20/24 Ordered By: Lise Jenkins Patient Education: Metoprolol (By mouth), Furosemide (By mouth), Doxycycline (By mouth), Heart Failure (GEN), Epididymitis (GEN) Activity Level: Activity as Tolerated Discharge Diet: Heart Healthy (2 gm sodium, low fat) Follow Up Appointments: García Collins MD [Staff Physician] - 09/22/24 12:45 pm ([facility] for Post Hospital follow-up appointment. ) Patel Lugo MD [Primary Care Provider] - (post hospital follow up 3-4 days) Forms: [employer] Info Instructions
--- NOTE | 2024-09-20 12:47 | PC.NURSE ---
D/C: Pt alert oriented and vitally stable. Pt up in room independently, tolerates well. Pt IV removed from both left hand and right ac, tip intact. Pt and spouse given DC education, topics including medications, follow up and symptoms worsening. Pt DC home with spouse at 1244.
== END 2024-09-20 12:44 | disposition home or self-care (01) | DRG 871 ==
LOC: ED 16:34 → MEDSURG 16:58
PROVIDERS: Physician Assistant; Student in an Organized Health Care Education/Training Program; Admitting Provider Family Medicine; Emergency Provider Emergency Medicine; PCP Internal Medicine; Visit Provider Family Medicine
DX: A41.9 Sepsis, unspecified organism (principal); I50.33 Acute on chronic diastolic (congestive) heart failure; J96.01 Acute respiratory failure with hypoxia; N39.0 Urinary tract infection, site not specified; D68.32 Hemorrhagic disorder due to extrinsic circulating anticoagulants; Z68.41 Body mass index [BMI] 40.0-44.9, adult; N45.3 Epididymo-orchitis; R31.0 Gross hematuria; T45.515A Adverse effect of anticoagulants, initial encounter; I48.91 Unspecified atrial fibrillation; Z79.01 Long term (current) use of anticoagulants; E66.01 Morbid (severe) obesity due to excess calories; G47.33 Obstructive sleep apnea (adult) (pediatric); Z99.89 Dependence on other enabling machines and devices; E87.6 Hypokalemia; I11.0 Hypertensive heart disease with heart failure; N48.89 Other specified disorders of penis; R91.8 Other nonspecific abnormal finding of lung field; Z87.891 Personal history of nicotine dependence; B96.20 Unspecified Escherichia coli [E. coli] as the cause of diseases classified elsewhere
CPT/HCPCS: 36415; 51798; 71045; 71275; 74176; 76870; 80048; 81001; 81003; 81015; 83605; 83735; 83880; 85025; 86140; 87040; 87086; 87186; 87491; 87591; 93005; 93306; 93976; 94664; 94761; 99283; 99284; 99285; A9270; J0696; J1171; J1940; J2543; J7030; Q9967

== ENCOUNTER 2024-11-16 07:30 | Outpatient (CLI) | payer OTHER, SELFPAY | END 2024-11-16 07:31 | disposition home or self-care (01) | LOC: NFLDREF 11-22 04:18 | PROVIDERS: PCP Family Medicine; Referring Provider Family Medicine; Visit Provider Family Medicine | DX: I42.9 Cardiomyopathy, unspecified (principal); E78.5 Hyperlipidemia, unspecified | CPT/HCPCS: 80053; 80061 ==

== ENCOUNTER 2025-10-13 09:47 | Outpatient (CLI) | payer MEDICARE, BC, SELFPAY | END 2025-10-13 09:48 | disposition home or self-care (01) | LOC: RAD 09:48 | PROVIDERS: PCP Family Medicine; Visit Provider Internal Medicine | DX: I48.91 Unspecified atrial fibrillation (principal); I51.7 Cardiomegaly | CPT/HCPCS: 93306 ==